=== PATIENT | female | born 1985 | race Caucasian/White ===

== ENCOUNTER 2021-09-07 19:16 | Emergency (ER) | payer MEDICAID, SELFPAY ==
--- NOTE | ~2021-09-07 | XR_ITS ---
EXAMINATION: XR FINGER, RIGHT CLINICAL INFORMATION: Thumb injury. COMPARISON: None TECHNIQUE: Three views of the right thumb. FINDINGS: Small avulsion fragment off the ventral surface of the IP joint of the thumb. No other fractures. Joint alignment is anatomic. Mild swelling around the thumb. No unexpected radiopaque foreign bodies. XR/XR finger RT min 2V IMPRESSION: Age indeterminate small avulsion fracture in the ventral aspect of the IP joint of the first digit. Correlate for tenderness. No other fractures. Joint alignment is anatomic.
[2021-09-07 19:29] VITALS: BP 114/74; PULSE 71; RESP 18; TEMP 35.7; O2SAT 99; BMI 25.4
--- NOTE | 2021-09-07 20:51 | ED.GENADULT ---
HPI - General Adult General Chief complaint: Extremity Problem Stated complaint: dislocated thumb? Time Seen by Provider: 09/07/21 20:05 Source: patient Mode of arrival: ambulatory Limitations: no limitations History of Present Illness HPI narrative: 26-year-old female presents to the ED for right thumb pain. Patient states she was horsing around with friends and she states her right thumb dislocated and she put it back. Patient states pain on range of motion of thumb since self reduction. Patient denies any other injury or trauma. Related Data Previous Rx's Medication Instructions Recorded naproxen 500 mg tablet 500 mg PO BID PRN 10 Days #20 tab 09/07/21 Allergies Allergy/AdvReac Type Severity Reaction Status Date / Time shellfish derived Allergy Unknown LIPS SWELL Verified 09/07/21 19:27 [SHELLFISH DERIVED] marcel nuts Allergy Unknown Unknown Uncoded 09/07/21 19:27 seasonal Allergy Unknown Unknown Uncoded 09/07/21 19:27 shellfish Allergy Unknown Unknown Uncoded 09/07/21 19:27 tuna Allergy Unknown Unknown Uncoded 09/07/21 19:27 Review of Systems Review of Systems: Right thumb pain Yes all other systems are reviewed and are negative [facility] Social History Social History Advance Directives: No Advance Directives Information Provided: Yes Physical Exam ED Vital Signs: Vital Signs - 24 hr 09/07/21 19:29 Temperature 96.3 F L Pulse Rate 71 Respiratory Rate 18 Blood Pressure 114/74 Pulse Oximetry 99 BMI result Body Mass Index 25.4 Const General: cooperative, healthy appearing, comfortable, no acute distress, well developed, alert, awake and Physically active Orientation/consciousness: patient oriented x3 HENMT Head: Yes normal to inspection, Yes No palpable skull fracture present, Yes normocephalic, Yes atraumatic and No abrasion Eyes General: appearance normal, both eyes and all related structures Neck Neck: Yes normal visual inspection, Yes full ROM, Yes no lymphadenopathy, Yes no meningeal signs, Yes trachea midline, Yes supple, No anterior neck swelling and No tender Chest Chest palpation & inspection: normal inspection of the chest and normal palpation of entire chest wall Resp Effort & Inspection: normal respiratory effort and able to speak in complete sentences Auscultation: clear to auscultation bilaterally Cardio Jugular venous distension: no JVD Heart sounds: S1 normal heart sound present and S2 normal heart sound present GI Inspection: Yes normal to inspection and No abdominal wall ecchymosis Palpation (GI): Soft to palpation, not firm, nontender, no guarding and not rigid General: No CVA tenderness and Yes no CVA tenderness Back/Spine/Pelvis Back: no CVA tenderness, No CVA tenderness and No back tenderness Skin General skin exam: no rashes or lesions noted and elasticity normal Neuro General: patient oriented x3, gait normal, no meningeal signs and CN's II-XI intact bilaterally Cranial nerves: Yes CN's II-XII intact bilaterally Extrem General: Yes normal to inspection and Yes full ROM Hand/finger images: 1. positive for tenderness on palpatino. negative for ecchymosis, deformity, redness, or swelling. Capillary refills is intact. Rest of extremity is normal. Motor, neuro, and vascular exam is intact. Psych Appearance: grossly normal, well kempt and not disheveled Course Course Course Narrative: Thumb x-ray Reevaluation(s) Reevaluation #1: X-ray negative for dislocation but shows small inter phalangeal avulsion fracture of unknown age. Patient is placed in velcro thumb spica splint Time: 20:52 Medical Decision Making MDM Narrative Medical decision making narrative: Thumb pain. Inter determinant avulsion fracture of thumb Discharge Plan Discharge Clinical Impression: Closed avulsion fracture of thumb Patient Disposition: Home, Self-Care Instructions: Finger Fracture (ED) Additional Instructions: X-ray shows avulsion fracture of thumb of unknown age. Please follow-up with orthopedic surgeon. Return to ED for worsening thumb pain, swelling, redness, bluish black discoloration, hotness, coolness, numbness/tingling, or any other concerning symptoms. Prescriptions: New naproxen 500 mg tablet 500 mg PO BID PRN (Reason: pain) 10 Days Qty: 20 0RF Referrals: Ajit Villa MD [Physician] - 2 days (Self reduced thumb dislocation. avulsion fracture of interdeterminate age) Stand Alone Forms: Work/School Release Interventions: ED Discharge Assessment Last Done: 09/07/21 21:00 Discharge Date/Time: 09/07/21 21:01 Print Language: Lithuanian
== END 2021-09-07 21:01 | disposition home or self-care (01) ==
PROVIDERS: Emergency Provider Internal Medicine; PCP Internal Medicine
DX: S62.501A Fracture of unspecified phalanx of right thumb, initial encounter for closed fracture (principal); M79.641 Pain in right hand; W01.0XXA Fall on same level from slipping, tripping and stumbling without subsequent striking against object, initial encounter; Y93.9 Activity, unspecified; Y92.9 Unspecified place or not applicable; Y99.9 Unspecified external cause status; Z79.899 Other long term (current) drug therapy
CPT/HCPCS: 29130; 73140; 99282; 99284

== ENCOUNTER → 2021-09-22 13:33 | Outpatient (BNVA) | payer MEDICAID, SELFPAY | PROVIDERS: PCP Internal Medicine; Visit Provider Physician Assistant | DX: M25.641 Stiffness of right hand, not elsewhere classified (principal); S63.104A Unspecified dislocation of right thumb, initial encounter; X58.XXXA Exposure to other specified factors, initial encounter; Y93.B1 Activity, exercise machines primarily for muscle strengthening; Y92.9 Unspecified place or not applicable; Y99.8 Other external cause status; J30.2 Other seasonal allergic rhinitis; Z91.018 Allergy to other foods; Z91.013 Allergy to seafood | CPT/HCPCS: 99202 ==

== ENCOUNTER → 2021-09-29 12:02 | Outpatient (BNVA) | payer MEDICAID, SELFPAY | PROVIDERS: PCP Internal Medicine; Visit Provider Orthopaedic Surgery | DX: S63.641D Sprain of metacarpophalangeal joint of right thumb, subsequent encounter (principal) | CPT/HCPCS: 99212 ==

== ENCOUNTER → 2021-10-27 12:27 | Outpatient (BNVA) | payer MEDICAID, SELFPAY | PROVIDERS: PCP Internal Medicine; Visit Provider Orthopaedic Surgery | DX: S63.641A Sprain of metacarpophalangeal joint of right thumb, initial encounter (principal) | CPT/HCPCS: 29075; 99212 ==

== ENCOUNTER → 2021-11-10 10:21 | Outpatient (BNVA) | payer MEDICAID, SELFPAY | PROVIDERS: PCP Internal Medicine; Visit Provider Orthopaedic Surgery | DX: S63.641D Sprain of metacarpophalangeal joint of right thumb, subsequent encounter (principal); M25.641 Stiffness of right hand, not elsewhere classified | CPT/HCPCS: 99212 ==

== ENCOUNTER 2021-12-07 08:00 | Outpatient (RCR) | payer MEDICAID, SELFPAY | END 2022-02-17 16:38 | disposition home or self-care (01) | LOC: HO.OT 08:00 | PROVIDERS: PCP Internal Medicine; Visit Provider Physician Assistant | DX: S63.641D Sprain of metacarpophalangeal joint of right thumb, subsequent encounter (principal); M25.641 Stiffness of right hand, not elsewhere classified | CPT/HCPCS: 29131; 97035; 97110; 97165; 97530; 97760 ==

== ENCOUNTER → 2021-12-08 09:33 | Outpatient (BNVA) | payer MEDICAID, SELFPAY | PROVIDERS: PCP Internal Medicine; Visit Provider Orthopaedic Surgery | DX: S63.649D Sprain of metacarpophalangeal joint of unspecified thumb, subsequent encounter (principal); M25.649 Stiffness of unspecified hand, not elsewhere classified | CPT/HCPCS: 99212 ==

== ENCOUNTER 2022-02-23 08:22 | Outpatient (REF) | payer MEDICAID, SELFPAY ==
--- NOTE | ~2022-02-23 | XR_ITS ---
EXAMINATION: XR HAND, RIGHT CLINICAL INFORMATION: Pain. COMPARISON: None TECHNIQUE: PA, lateral, and oblique views of the right hand. FINDINGS: The bones and soft tissues are normal. No fracture. Alignment is anatomic. Joint spaces are maintained. No erosions or soft tissue calcifications. XR/XR hand RT min 3V IMPRESSION: Normal right hand.
== END 2022-02-23 08:23 | disposition home or self-care (01) ==
LOC: HO.HOSX 08:22
PROVIDERS: Visit Provider Orthopaedic Surgery
DX: S63.641D Sprain of metacarpophalangeal joint of right thumb, subsequent encounter (principal); M25.641 Stiffness of right hand, not elsewhere classified; R20.0 Anesthesia of skin
CPT/HCPCS: 73130; 99212

== ENCOUNTER 2022-04-23 07:19 | Emergency (ER) | payer MEDICAID, SELFPAY ==
--- NOTE | ~2022-04-23 | XR_ITS ---
EXAMINATION: XR CHEST CLINICAL INFORMATION: Chest pain. COMPARISON: None TECHNIQUE: 2 views of the chest were obtained. FINDINGS: No significant abnormality is noted involving the heart, lungs, mediastinum, bony thorax or soft tissues. XR/XR chest 2V IMPRESSION: No acute cardiopulmonary process.
[2022-04-23 07:39] VITALS: BP 79/46; PULSE 68; RESP 18; TEMP 36.9; O2SAT 98; BMI 24.4
--- NOTE | 2022-04-23 08:05 | ED_ITS ---
HPI - General Adult General Chief complaint: Nausea/Vomiting/Diarrhea Stated complaint: vomiting Time Seen by Provider: 04/23/22 07:53 Source: patient Mode of arrival: ambulatory Limitations: no limitations History of Present Illness HPI narrative: 36-year-old female woke up from sleep choking on gastric acid in her throat, complaining now of constant chest pain/burning sensation. Also feels sore throat. Otherwise no abdominal pain, no nausea, no vomiting, no SOB, no coughing. Related Data Previous Rx's Medication Instructions Recorded naproxen 500 mg tablet 500 mg PO BID PRN pain 10 days #20 09/07/21 tabs omeprazole 40 mg capsule,delayed 40 mg PO DAILY #20 caps 04/23/22 release Allergies Allergy/AdvReac Type Severity Reaction Status Date / Time shellfish derived Allergy Unknown LIPS SWELL Verified 02/23/22 15:17 [SHELLFISH DERIVED] marcel nuts Allergy Unknown Unknown Uncoded 02/23/22 15:17 seasonal Allergy Unknown Unknown Uncoded 02/23/22 15:17 shellfish Allergy Unknown Unknown Uncoded 02/23/22 15:17 tuna Allergy Unknown Unknown Uncoded 02/23/22 15:17 Review of Systems Review of Systems: All other systems are reviewed and are negative Constitutional: Reports as per HPI and Reports no additional constitutional complaints Eyes: Reports as per HPI and Reports no additional eye complaints Reports system reviewed and no additional complaints, except as documented Cardiovascular: Reports as per HPI and Reports no additional cardiovascular complaints Respiratory: Reports as per HPI and Reports no additional respiratory complaints Gastrointestinal: Reports as per HPI and Reports no additional gastrointestinal complaints Genitourinary: Reports no additional female genitourinary complaints Musculoskeletal: Reports no additional musculoskeletal complaints Skin/Breast: Reports system reviewed and no additional complaints, except as docu Psychiatric: Reports no additional psychiatric complaints Endocrine: Reports no additional endocrine complaints Hematologic/Lymphatic: Reports no additional hematologic/lymphatic complaints Allergic/Immunologic: Reports no additional allergic/immunologic complaints Reports system reviewed and no additional complaints, except as documented and Reports Abnormal speech present [facility] Past Medical History Surgical History H/O total vaginal hysterectomy Social History Social History Advance Directives: No Advance Directives Information Provided: No Current occupational status: employed Current occupation: [employer] Physical Exam ED Vital Signs: Vital Signs - 24 hr 04/23/22 07:39 04/23/22 11:05 Temperature 98.4 F Pulse Rate 68 62 Respiratory Rate 18 16 Blood Pressure 79/46 L 111/76 Pulse Oximetry 98 98 Oxygen Delivery Method Room Air Room Air BMI result Body Mass Index 24.4 Vital signs have been reviewed as appeared to be correct. Blood pressure normal. Heart rate normal. Respiration rate normal. Temperature normal. Oxygen saturation normal. Appearance: Alert. Oriented X3. No acute distress. Head: Normal external exam. Normocephalic. Atraumatic. No Tomlinson signs noted. No raccoon eyes noted Eyes: PERRLA. EOMI. Conjunctiva and sclera normal. Eyelids normal. ENT: TM's Normal. Pharynx normal. Uvula midline. Moist mucous membranes. No trismus noted. No drooling noted. No muffled voice noted. Neck: Normal inspection. Neck supple. FROM. No adenopathy. Thyroid Normal. No meningeal signs. No neck mass noted. CVS: Normal heart rate and rhythm. Heart sound normal. No murmurs noted. Pulses normal throughout. Respiratory: No respiratory distress. Painless inspiration. Breath sounds normal. No wheezes/rales/rhonchi noted. Chest nontender. No accessory muscle usage noted or decreased air movement noted. Abdomen: Soft and nontender. Bowel sounds normal in all 4 quadrants. No distention noted. No organomegaly noted. No visible injury noted. Back: No CVA tenderness. Full range of motion noted. Skin: Skin warm and dry. Normal skin color. Normal skin turgor. No rashes/lesions/lacerations noted. Extremities: No lower extremity edema. Extremities exhibit normal range of motion. Extremities nontender. Neuro: Oriented X 3. Cranial nerve exam: II-XII are grossly intact No motor deficit. No sensory deficit. Reflexes normal. Course Course Course Narrative: 36-year-old female came in for evaluation after having acid reflux with possible aspiration while sleeping, patient's symptoms is likely secondary to esophagitis, patient feeling better after IV fluid and Pepcid with Maalox, unremarkable workup in the ED. patient was instructed to not to eat doing going to bed, and raise the head of the bed or using 2 pillows instead. Will start the patient on PPI and follow-up with GI. Patient initially was hypotensive which felt to be a non accurate reading. Blood pressure now is normal. Patient is asymptomatic now able to tolerate p.o. intake in the ED. Medical Decision Making Medical Records Medical records reviewed: Yes I reviewed the patient's medical records. Lab Data Lab results reviewed: Yes I reviewed the patient's lab results. Result diagrams: 04/23/22 08:26 04/23/22 08:26 Labs: Lab Results 04/23/22 04/23/22 04/23/22 Range/Units 08:26 08:26 08:26 WBC 6.3 (4.8-10.8) X10*3/uL RBC 4.87 (4.20-5.50) X10*6/uL Hgb 14.4 (12.0-16.0) g/dl Hct 43.9 (37.0-47.0) % MCV 90.1 (80.0-98.0) fL MCH 29.6 (27.0-33.0) pg MCHC 32.8 (31.0-35.0) g/dl RDW 13.8 (11.0-16.0) % Plt Count 331 (160-400) X10*3/uL MPV 9.8 (9.4-12.3) fL Immature Gran % (Auto) 0.5 H (0.0-0.4) % Neut % (Auto) 60.9 (45-73) % Lymph % (Auto) 25.2 (20-40) % [place] % (Auto) 6.6 (2-11) % Eos % (Auto) 5.7 H (0-4) % Baso % (Auto) 1.1 (0-2) % Lymph # (Auto) 1.6 (1.2-4.9) X10*3/uL [place] # (Auto) 0.4 (0.1-1.2) X10*3/uL Eos # (Auto) 0.4 (0.0-0.4) X10*3/uL Baso # (Auto) 0.1 (0.0-0.2) X10*3/uL Abs Immat Gran (auto) 0.03 (0.00-0.03) X10*3/uL Absolute Neuts (auto) 3.9 (2.0-8.3) x10*3/uL Absolute Nucleated RBC 0.000 (0.0-0.012) X10*3/uL Nucleated RBC % (auto) 0.0 (0.0-0.2) /100WBC Sodium 140 (135-145) mmol/L Potassium 5.3 H (3.3-5.1) mmol/L Chloride 104 (96-108) mmol/L Carbon Dioxide 24 (22-29) mmol/L Anion Gap 17 (12-20) BUN 13 (9-16) mg/dL Creatinine 0.70 (0.5-1.4) mg/dL Estim Creat Clear Calc 87.6 Estimated GFR > 60 Random Glucose 96 (60-115) mg/dL Calcium 9.7 (8.4-10.2) mg/dL Total Bilirubin 0.6 (0.0-1.0) mg/dL Direct Bilirubin 0.2 (0.0-0.5) mg/dL AST 21 (5-31) U/L ALT 20 (0-31) U/L Alkaline Phosphatase 123 H (39-117) U/L Troponin I High Sens (<3.5-17.0) ng/L Total Protein 7.7 (6.5-8.0) g/dL Albumin 4.7 (3.5-5.0) g/dL Lipase 21 (8-78) U/L Urine Color Urine Appearance Urine pH (5.0-9.0) Ur Specific [place] (1.005-1.025) Urine Protein (Neg-Trace) mg/dL Urine Glucose (UA) (Negative) mg/dL Urine Ketones (Negative) mg/dL Urine Blood (Negative) Urine Nitrite (Negative) Ur Leukocyte Esterase (Negative) Urine Test (NEGATIVE) Influenza Type A (PCR) NEGATIVE (Negative) Influenza Type B (PCR) NEGATIVE (Negative) RSV RNA Qual (PCR) NEGATIVE (Negative) SARS-CoV-2 RNA (RT-PCR) NEGATIVE (Negative) 04/23/22 04/23/22 04/23/22 Range/Units 08:26 08:26 08:26 WBC (4.8-10.8) X10*3/uL RBC (4.20-5.50) X10*6/uL Hgb (12.0-16.0) g/dl Hct (37.0-47.0) % MCV (80.0-98.0) fL MCH (27.0-33.0) pg MCHC (31.0-35.0) g/dl RDW (11.0-16.0) % Plt Count (160-400) X10*3/uL MPV (9.4-12.3) fL Immature Gran % (Auto) (0.0-0.4) % Neut % (Auto) (45-73) % Lymph % (Auto) (20-40) % [place] % (Auto) (2-11) % Eos % (Auto) (0-4) % Baso % (Auto) (0-2) % Lymph # (Auto) (1.2-4.9) X10*3/uL [place] # (Auto) (0.1-1.2) X10*3/uL Eos # (Auto) (0.0-0.4) X10*3/uL Baso # (Auto) (0.0-0.2) X10*3/uL Abs Immat Gran (auto) (0.00-0.03) X10*3/uL Absolute Neuts (auto) (2.0-8.3) x10*3/uL Absolute Nucleated RBC (0.0-0.012) X10*3/uL Nucleated RBC % (auto) (0.0-0.2) /100WBC Sodium (135-145) mmol/L Potassium (3.3-5.1) mmol/L Chloride (96-108) mmol/L Carbon Dioxide (22-29) mmol/L Anion Gap (12-20) BUN (9-16) mg/dL Creatinine (0.5-1.4) mg/dL Estim Creat Clear Calc Estimated GFR Random Glucose (60-115) mg/dL Calcium (8.4-10.2) mg/dL Total Bilirubin (0.0-1.0) mg/dL Direct Bilirubin (0.0-0.5) mg/dL AST (5-31) U/L ALT (0-31) U/L Alkaline Phosphatase (39-117) U/L Troponin I High Sens < 3.5 (<3.5-17.0) ng/L Total Protein (6.5-8.0) g/dL Albumin (3.5-5.0) g/dL Lipase (8-78) U/L Urine Color Yellow Urine Appearance Clear Urine pH 6.0 (5.0-9.0) Ur Specific [place] 1.025 (1.005-1.025) Urine Protein Negative (Neg-Trace) mg/dL Urine Glucose (UA) Negative (Negative) mg/dL Urine Ketones Negative (Negative) mg/dL Urine Blood Negative (Negative) Urine Nitrite Negative (Negative) Ur Leukocyte Esterase Negative (Negative) Urine Test NEGATIVE (NEGATIVE) Influenza Type A (PCR) (Negative) Influenza Type B (PCR) (Negative) RSV RNA Qual (PCR) (Negative) SARS-CoV-2 RNA (RT-PCR) (Negative) Imaging Data Chest x-ray: Attestation: I personally reviewed and interpreted this imaging study as follows: Radiologist's impression: No acute cardiopulmonary process Discharge Plan Discharge Clinical Impression: Chest pain due to GERD, Gastritis Patient Disposition: Home, Self-Care Instructions: Esophagitis (ED) Prescriptions: New omeprazole 40 mg capsule,delayed release(DR/EC) 40 mg PO DAILY Qty: 20 0RF No Action naproxen 500 mg tablet 500 mg PO BID PRN (Reason: pain) 10 Days Qty: 20 0RF Referrals: Jossy Michele MD [Primary Care Provider] -
[2022-04-23 08:31] LABS: MANUAL DIFF FLAG NO
[2022-04-23] MEDS: 0.9 % Sodium Chloride 1,000 ML 999 ML IV (08:31)
[2022-04-23 08:33] LABS: Basophils Absolute Auto 0.1 X10*3/uL (0.0-0.2); Basophils Percent Auto 1.1 % (0-2); Eosinophils Absolute Auto 0.4 X10*3/uL (0.0-0.4); Eosinophils Percent Auto 5.7 % (0-4); Hematocrit 43.9 % (37.0-47.0); Hemoglobin 14.4 g/dl (12.0-16.0); Imm Gran Abs Auto 0.03 X10*3/uL (0.00-0.03); Imm Gran Pct Auto 0.5 % (0.0-0.4); Lymphocytes Absolute Auto 1.6 X10*3/uL (1.2-4.9); Lymphocytes Percent Auto 25.2 % (20-40); Mean Corpuscular HGB Conc 32.8 g/dl (31.0-35.0); Mean Corpuscular Hemoglobin 29.6 pg (27.0-33.0); Mean Corpuscular Volume 90.1 fL (80.0-98.0); Mean Platelet Volume 9.8 fL (9.4-12.3); Monocytes Absolute Auto 0.4 X10*3/uL (0.1-1.2); Monocytes Percent Auto 6.6 % (2-11); Neutrophils Absolute Auto 3.9 x10*3/uL (2.0-8.3); Neutrophils Percent Auto 60.9 % (45-73); Platelet Count 331 X10*3/uL (160-400); Red Blood Count 4.87 X10*6/uL (4.20-5.50); Red Cell Distribution Width 13.8 % (11.0-16.0); White Blood Count 6.3 X10*3/uL (4.8-10.8)
[2022-04-23] MEDS: Famotidine/PF 20 MG/2 ML VIAL IVPUSH (08:34)
[2022-04-23] MEDS: Magnesium Hydrox/Alum Hydrox 30 ML ORAL.SUSP PO (08:34)
[2022-04-23 08:38] LABS: Appearance Urine Clear; Color Urine Yellow; Glucose Urine UA Negative (Negative); Leukocyte Esterase Urine Negative (Negative); Nitrite Urine Negative (Negative); Specific Gravity - Urine 1.025 (1.005-1.025); Urine Blood Negative (Negative); Urine Ketones Negative (Negative); Urine Protein Negative (Neg-Trace)
[2022-04-23 08:40] LABS: UPreg QC Valid YES; Urine Pregnancy NEGATIVE (NEGATIVE)
[2022-04-23 08:56] LABS: Troponin-I High Sensitivity < 3.5 ng/L (<3.5-17.0)
[2022-04-23 09:03] LABS: Alanine Aminotransferase 20 U/L (0-31); Albumin Level 4.7 g/dL (3.5-5.0); Alkaline Phosphatase 123 U/L (39-117); Anion Gap 17 (12-20); Aspartate Amino Transferase 21 U/L (5-31); Bilirubin Direct 0.2 mg/dL (0.0-0.5); Bilirubin Total 0.6 mg/dL (0.0-1.0); Blood Urea Nitrogen 13 mg/dL (9-16); Calcium 9.7 mg/dL (8.4-10.2); Carbon Dioxide 24 mmol/L (22-29); Chloride 104 mmol/L (96-108); Creatinine Clr Calc Pharmacy 87.6; Estimated Glomerular Filt Rate > 60; Glucose Random 96 mg/dL (60-115); Lipase 21 U/L (8-78); Potassium 5.3 mmol/L (3.3-5.1); Sodium 140 mmol/L (135-145); Total Protein 7.7 g/dL (6.5-8.0)
[2022-04-23 09:34] LABS: Influenza A PCR NEGATIVE (Negative); Influenza B PCR NEGATIVE (Negative); Resp Syncy Virus RNA Qual PCR NEGATIVE (Negative); SARS COV2 PCR INHOUSE NEGATIVE (Negative)
[2022-04-23] MEDS: Morphine Sulfate 2 MG/ML CARTRIDGE 1 MG IVPUSH (10:28)
[2022-04-23 11:05] VITALS: BP 111/76; PULSE 62; RESP 16; O2SAT 98
== END 2022-04-23 11:54 | disposition home or self-care (01) ==
PROVIDERS: Emergency Provider Emergency Medicine; PCP Internal Medicine
DX: K29.70 Gastritis, unspecified, without bleeding (principal); R07.89 Other chest pain; K21.9 Gastro-esophageal reflux disease without esophagitis; Z20.822 Contact with and (suspected) exposure to COVID-19; J02.9 Acute pharyngitis, unspecified
CPT/HCPCS: 0241U; 36415; 71046; 80048; 80076; 81003; 81025; 83690; 84484; 85025; 96361; 96374; 96375; 99284; J2270

== ENCOUNTER 2022-06-30 12:32 | Outpatient (REF) | payer MEDICAID, SELFPAY | END 2022-06-30 12:33 | disposition home or self-care (01) | LOC: HO.NEURO 12:32 | PROVIDERS: PCP Internal Medicine; Visit Provider Orthopaedic Surgery | DX: Z13.89 Encounter for screening for other disorder (principal) ==

== ENCOUNTER 2022-07-07 08:49 | Outpatient (REF) | payer MEDICAID, SELFPAY ==
[2022-07-07 09:09] LABS: MANUAL DIFF FLAG NO
[2022-07-07 09:17] LABS: Basophils Absolute Auto 0.1 X10*3/uL (0.0-0.2); Basophils Percent Auto 0.9 % (0-2); Eosinophils Absolute Auto 0.2 X10*3/uL (0.0-0.4); Hematocrit 41.1 % (37.0-47.0); Hemoglobin 14.1 g/dl (12.0-16.0); Imm Gran Abs Auto 0.01 X10*3/uL (0.00-0.03); Imm Gran Pct Auto 0.2 % (0.0-0.4); Lymphocytes Absolute Auto 1.4 X10*3/uL (1.2-4.9); Lymphocytes Percent Auto 24.8 % (20-40); Mean Corpuscular HGB Conc 34.3 g/dl (31.0-35.0); Mean Corpuscular Hemoglobin 29.9 pg (27.0-33.0); Mean Corpuscular Volume 87.1 fL (80.0-98.0); Mean Platelet Volume 9.8 fL (9.4-12.3); Monocytes Absolute Auto 0.4 X10*3/uL (0.1-1.2); Monocytes Percent Auto 7.3 % (2-11); Neutrophils Absolute Auto 3.6 x10*3/uL (2.0-8.3); Neutrophils Percent Auto 63.8 % (45-73); Platelet Count 311 X10*3/uL (160-400); Red Blood Count 4.72 X10*6/uL (4.20-5.50); White Blood Count 5.6 X10*3/uL (4.8-10.8)
[2022-07-07 09:52] LABS: Alanine Aminotransferase 14 U/L (0-31); Albumin Level 4.5 g/dL (3.5-5.0); Alkaline Phosphatase 96 U/L (39-117); Anion Gap 11 (12-20); Aspartate Amino Transferase 18 U/L (5-31); Bilirubin Total 0.6 mg/dL (0.0-1.0); Blood Urea Nitrogen 13 mg/dL (9-16); C Reactive Protein < 0.10 mg/dL (< or = 0.50); Calcium 9.8 mg/dL (8.4-10.2); Carbon Dioxide 28 mmol/L (22-29); Chloride 104 mmol/L (96-108); Estimated Glomerular Filt Rate > 60; Glucose Random 91 mg/dL (60-115); Potassium 4.2 mmol/L (3.3-5.1); Rheumatoid Factor < 13.0 IU/mL (<15.0); Sodium 139 mmol/L (135-145); Total Protein 7.1 g/dL (6.5-8.0)
[2022-07-07 09:55] LABS: Erythrocyte Sedimentation Rate 5 MM/HR (0-20)
[2022-07-07 10:12] LABS: HBS Num1 0.67 mIU/mL (0-7.99); HBc Num1 0.07 S/CO (0.00-0.79); HBsAGNum1 0.23 S/CO (0.00-0.99); Hepatitis B Core Antibody Nonreactive (Nonreactive); Hepatitis B Surface Antigen Negative (Negative); ~HepC Num1 0.09 S/CO (0.00-0.79); ~Hepatitis B Surface Antibody NONREACTIVE (Nonreactive); ~Hepatitis C Antibody Nonreactive (Nonreactive)
[2022-07-08 08:57] LABS: Hepatitis A Antibody IgM 0.11 Index (0-0.79); ~Hepatitis A Antibody IgM Nonreactive (Nonreactive)
[2022-07-08 14:58] LABS: Complement C3 109 mg/dL (83-193)
[2022-07-10 12:33] LABS: Cyclic Citrullinated Peptide <16 UNITS
[2022-07-10 15:13] LABS: Anti Nuclear Antibody Screen NEGATIVE (NEGATIVE)
[2022-07-10 23:18] LABS: TS Negative Control Passed; TS Panel A 0; TS Panel B 1; TS Positive Control Passed; TSpotTB Negative (Negative)
[2022-07-11 13:47] LABS: Cardiolipin IgG Ab <2.0 GPL-U/mL; Cardiolipin IgM Ab 2.2 MPL-U/mL
[2022-07-12 07:18] LABS: Anti DNA DS Antibody <1 IU/mL; Antibody to SS-A Antigen <1.0 NEG AI (<1.0 NEG); Antibody to SS-B Antigen <1.0 NEG AI (<1.0 NEG); SM/Ribonucleoprotein Ab <1.0 NEG AI (<1.0 NEG); Smith Protein <1.0 NEG AI (<1.0 NEG)
[2022-07-13 22:54] LABS: PTT (LAC) Screen 34 sec (<=40)
[2022-07-14 15:08] LABS: Beta-2 Glycoprotein IgA <2.0 U/mL (<20.0); Beta-2 Glycoprotein IgG <2.0 U/mL (<20.0); Beta-2 Glycoprotein IgM 2.6 U/mL (<20.0)
[2022-07-15 14:54] LABS: DNAds, Crithidia Antibody Negative (Negative)
== END 2022-07-07 08:50 | disposition home or self-care (01) ==
LOC: HO.10HDL 08:49
PROVIDERS: Visit Provider Student in an Organized Health Care Education/Training Program
DX: Z11.59 Encounter for screening for other viral diseases (principal); Z11.7 Encounter for testing for latent tuberculosis infection; R76.8 Other specified abnormal immunological findings in serum; M25.649 Stiffness of unspecified hand, not elsewhere classified
CPT/HCPCS: 36415; 80053; 82550; 85025; 85597; 85613; 85652; 85730; 86038; 86039; 86140; 86146; 86147; 86160; 86200; 86225; 86235; 86255; 86431; 86481; 86704; 86706; 86709; 86803; 87340; 99202

== ENCOUNTER 2022-08-04 07:48 | Outpatient (REF) | payer MEDICAID, SELFPAY ==
--- NOTE | ~2022-08-04 | XR_ITS ---
EXAMINATION: XR BILATERAL HIPS WITH AP PELVIS CLINICAL INFORMATION: Pain in right hip COMPARISON: None TECHNIQUE: AP view of the pelvis and single views of each hip were obtained. FINDINGS: The bones and soft tissues are normal. No fracture. Sacroiliac and hip joints are normal. Pubic symphysis is normal. No abnormal soft tissue calcifications. XR/XR hips ANDRE min 3V IMPRESSION: Normal pelvis and hips.
== END 2022-08-04 07:49 | disposition home or self-care (01) ==
LOC: HO.XRAY 07:48
PROVIDERS: PCP Internal Medicine; Visit Provider Student in an Organized Health Care Education/Training Program
DX: M25.551 Pain in right hip (principal); M25.552 Pain in left hip; R76.8 Other specified abnormal immunological findings in serum
CPT/HCPCS: 73522; 99212

== ENCOUNTER 2023-01-26 15:53 | Outpatient (REF) | payer MEDICAID, SELFPAY | END 2023-01-26 15:54 | disposition home or self-care (01) | LOC: HO.LAB 15:53 | PROVIDERS: PCP Internal Medicine; Visit Provider Emergency Medicine | DX: N89.8 Other specified noninflammatory disorders of vagina (principal) | CPT/HCPCS: 36415; 86706; 86780; 86803; 87340; 87389 ==

== ENCOUNTER 2023-06-05 15:34 | Outpatient (REF) | payer MEDICAID, SELFPAY ==
[2023-06-05 17:29] LABS: MANUAL DIFF FLAG NO
[2023-06-05 17:41] LABS: Basophils Absolute Auto 0.1 X10*3/uL (0.0-0.2); Basophils Percent Auto 0.9 % (0-2); Eosinophils Absolute Auto 0.6 X10*3/uL (0.0-0.4); Eosinophils Percent Auto 7.4 % (0-4); Hematocrit 43.9 % (37.0-47.0); Hemoglobin 14.3 g/dl (12.0-16.0); Imm Gran Abs Auto 0.04 X10*3/uL (0.00-0.03); Imm Gran Pct Auto 0.5 % (0.0-0.4); Lymphocytes Absolute Auto 2.4 X10*3/uL (1.2-4.9); Mean Corpuscular HGB Conc 32.6 g/dl (31.0-35.0); Monocytes Absolute Auto 0.6 X10*3/uL (0.1-1.2); Monocytes Percent Auto 7.1 % (2-11); Neutrophils Absolute Auto 4.8 x10*3/uL (2.0-8.3); Neutrophils Percent Auto 56.1 % (45-73); Platelet Count 342 X10*3/uL (160-400); Red Blood Count 4.77 X10*6/uL (4.20-5.50); Red Cell Distribution Width 13.7 % (11.0-16.0); White Blood Count 8.5 X10*3/uL (4.8-10.8)
[2023-06-05 17:43] LABS: Estimated Average Glucose 100 mg/dL; Hemoglobin A1c % 5.1 % (<6.0)
[2023-06-05 17:48] LABS: Alanine Aminotransferase 15 U/L (0-31); Albumin Level 4.6 g/dL (3.5-5.0); Alkaline Phosphatase 98 U/L (39-117); Anion Gap 12 (12-20); Aspartate Amino Transferase 20 U/L (5-31); Bilirubin Direct < 0.2 mg/dL (0.0-0.5); Bilirubin Total 0.2 mg/dL (0.0-1.0); Blood Urea Nitrogen 12 mg/dL (9-16); Calcium 9.8 mg/dL (8.4-10.2); Carbon Dioxide 29 mmol/L (22-29); Chloride 102 mmol/L (96-108); Cholesterol 180 mg/dL (<200); Estimated Glomerular Filt Rate > 60; Glucose Random 89 mg/dL (60-115); HDL Cholesterol 55 mg/dL (>40); LDL Cholesterol Calculated 93 mg/dL (<100); Potassium 4.1 mmol/L (3.3-5.1); Sodium 139 mmol/L (135-145); Total Protein 7.7 g/dL (6.5-8.0); Triglycerides 161 mg/dL (<150)
[2023-06-06 07:09] LABS: HIV AB/AG Nonreactive (Nonreactive); HIV Num 1 0.06 S/CO (0.00-0.99)
[2023-06-06 07:13] LABS: ~HepC Num1 0.05 S/CO (0.00-0.79); ~Hepatitis C Antibody Nonreactive (Nonreactive)
== END 2023-06-05 15:35 | disposition home or self-care (01) ==
LOC: HO.HHCL 15:34
PROVIDERS: Visit Provider Internal Medicine
DX: Z00.00 Encounter for general adult medical examination without abnormal findings (principal)
CPT/HCPCS: 36415; 80048; 80061; 80076; 83036; 85025; 86803; 87389

== ENCOUNTER 2023-11-22 14:25 | Outpatient (REF) | payer MEDICAID, SELFPAY ==
[2023-11-22 17:00] LABS: Alanine Aminotransferase 21 U/L (0-31); Albumin Level 4.4 g/dL (3.5-5.0); Alkaline Phosphatase 128 U/L (39-117); Anion Gap 13 (12-20); Aspartate Amino Transferase 18 U/L (5-31); Bilirubin Total 0.1 mg/dL (0.0-1.0); Blood Urea Nitrogen 17 mg/dL (9-16); Calcium 9.6 mg/dL (8.4-10.2); Carbon Dioxide 28 mmol/L (22-29); Chloride 101 mmol/L (96-108); Estimated Glomerular Filt Rate > 60; Glucose Random 81 mg/dL (60-115); Potassium 4.4 mmol/L (3.3-5.1); Sodium 138 mmol/L (135-145); Total Protein 7.6 g/dL (6.5-8.0)
[2023-11-22 17:16] LABS: TSH reflex Free T4 1.59 uIU/mL (0.32-4.0)
== END 2023-11-22 14:26 | disposition home or self-care (01) ==
LOC: HO.HHCL 14:25
PROVIDERS: Visit Provider Student in an Organized Health Care Education/Training Program
DX: H57.89 Other specified disorders of eye and adnexa (principal)
CPT/HCPCS: 36415; 80053; 84443

== ENCOUNTER 2023-12-04 16:07 | Outpatient (REF) | payer MEDICAID, SELFPAY ==
[2023-12-04 17:46] LABS: Estimated Average Glucose 103 mg/dL; Hemoglobin A1c % 5.2 % (<6.0)
[2023-12-04 18:49] LABS: Folate 13.9 ng/mL (> or = 4.0); Vitamin B12 812 pg/mL (200-900)
[2023-12-06 16:28] LABS: RPR Rapid Plasma Reagin NON-REACTIVE (NON-REACTIVE)
== END 2023-12-04 16:08 | disposition home or self-care (01) ==
LOC: HO.HHCL 16:07
PROVIDERS: Visit Provider Internal Medicine
DX: R20.0 Anesthesia of skin (principal); R20.2 Paresthesia of skin
CPT/HCPCS: 36415; 82607; 82746; 83036; 86592

== ENCOUNTER 2024-08-06 15:32 | Outpatient (REF) | payer MEDICAID, SELFPAY ==
--- NOTE | ~2024-08-06 | XR_ITS ---
EXAMINATION: XR HIP, RIGHT CLINICAL INFORMATION: chronic pain COMPARISON: 08/04/2022. TECHNIQUE: Two views of the right hip. FINDINGS: No fracture. Alignment is anatomic. Hip joint space is maintained. There are no degenerative changes. Soft tissues are unremarkable. XR/XR hip RT min 2V IMPRESSION: Normal right hip. Electronically signed by: Clif Ramey MD 08/06/2024 03:51 PM EST
== END 2024-08-06 15:33 | disposition home or self-care (01) ==
LOC: HO.HHCX 15:32
PROVIDERS: Visit Provider Internal Medicine
DX: M25.551 Pain in right hip (principal); G89.29 Other chronic pain
CPT/HCPCS: 73502

== ENCOUNTER → 2024-08-06 15:33 | Outpatient (BNV) | payer MEDICAID, SELFPAY | PROVIDERS: Visit Provider Radiology Diagnostic Radiology | DX: M25.551 Pain in right hip (principal) | CPT/HCPCS: 73502 ==

== ENCOUNTER 2024-09-06 08:35 | Outpatient (AMB) | payer MEDICAID, SELFPAY ==
--- NOTE | 2024-09-06 08:37 | MHC.OFFVIS ---
Vital Signs 09/06/24 08:38 Height 5 ft 1 in Weight 145 lb BMI 27.4 Intake Visit Reasons: New problem chronic right hip pain Intake Note: Caroline is a 39 year old female who presents today for a new problem visit with complaints of right hip pain. Patient reports right hip pain ongoing for a few months now. Her pain if felt in the lateral aspect of the hip and is felt all the time. She was taking Tylenol for her pain which was not helpful. She has had no previous treatments. Allergies shellfish derived [SHELLFISH DERIVED] Allergy (Unknown, Verified 08/04/22 07:57) LIPS SWELL sunscreen Allergy (Intermediate, Uncoded 08/04/22 07:57) Redness of Skin marcel nuts Allergy (Unknown, Uncoded 08/04/22 07:57) Unknown seasonal Allergy (Unknown, Uncoded 08/04/22 07:57) Unknown shellfish Allergy (Unknown, Uncoded 08/04/22 07:57) Unknown tuna Allergy (Unknown, Uncoded 08/04/22 07:57) Unknown HPI HPI New problem chronic right hip pain: Details: 39-year-old female presents to the office today for right hip pain. She states the pain has been present for over 3 months. She denies injury. She denies groin pain. She states the pain is along the lateral aspect of the hip which radiates down the leg. She has mild discomfort with sleeping. She has had no treatment to date. [facility] Medical History (Updated 09/06/24 @ 08:52 by Jadiel Hidalgo PA-C) Polyarthralgia Pain of right thumb Psoriasis Mood disorder Asthma Surgical History (Updated 09/06/24 @ 08:41 by Magi Florence CMA) S/P reconstruction of ACL of right knee using bone-patellar tendon-bone autograft Hx of tubal ligation H/O total vaginal hysterectomy Family History Mother Osteoarthritis Social History Household Members: Spouse and Family Housing: House Alcohol intake: never Patient Tobacco Use Status: Former Tobacco user Years Smoked: quit 4 years ago e-Cigarette/Vaping Use: Never Used service: No Current occupational status: employed 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 No pain with ROM of the hip. Pain along the greater trochanter. No pain with hip flexion or abduction.There is no tenderness along the si joint, Negative SLR. NVI. Results Reviewed Results Reviewed: XR hip RT min 2V IMPRESSION: Normal right hip. Assessment & Plan Assessment & Plan (1) Trochanteric bursitis, right hip: Code(s): M70.61 - Trochanteric bursitis, right hip Category: Medical Plan: We discussed options today which included physical therapy which was ordered today. She can increase activities as tolerated. I did recommend anti-inflammatory use such as Motrin 800 mg 3 times a day for 2 weeks for acute flare-ups. If symptoms persist or worsen over the next 6-8 weeks she can contact our office for a steroid injection otherwise follow up as needed. Orders: Orders PT Evaluation and Treatment Today M70.61 - Trochanteric bursitis, right hip Coding Level of Care Code New Pt Level 3 (93348) Complex EM visit Add On G2211 Diagnoses Trochanteric bursitis, right hip M70.61
[2024-09-06 08:38] VITALS: BMI 27.4
--- OUTSIDE RECORDS SUMMARY | 2024-09-06 08:54 | XMS_ITS | Encounter Summary ---
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 Name Role Phone Jossy Michele MD Primary Care Provide r Reason for Visit * Reason Comments Med Refill Encounter Details Date Type Department Care Team ([facility] Contact Info) Description 04/05/2024 Refill [facility] [address], [place] [phone] Timbo Gill MD [address], [place] [phone] Psoriasis Social History Tobacco Use Types Packs/Day Years Used Date Smoking Tobacco: Never Passive Smoke Exposure: Never Smokeless Tobacco: Never Alcohol Use Standard Drinks/Week Comments Yes 0 (1 standard drink = 0.6 oz pur e alcohol) occassional Depression Answer Date Recorded Patient Health Questionnaire-9 Score 0 07/20/2023 Patient Health Questionnaire-9 Score 0 07/20/2023 Last PHQ-9: Questionnaire Data Not on file 1 09/20/2022 Housing Stability Answer Date Recorded What is your housing situation today? I have pepe laird 06/05/[address] you li ve. Do you have problems with any of the following? None of the above 06/05/2023 Food Insecurity Answer Date Recorded Within the past 12 months, y ou worried that your food would run out before you got money to buy more: Never True 06/05/2023 Within the past 12 months,th e food you bought just didn't last and you didn't have enough money to get more: Never True Transportation Answer Date Recorded In the past 12 months, has l ack of transportation kept you from medical appts, meetings, work or from getting things needed for daily living? No 06/05/2023 Utilities Answer Date Recorded In the past 12 months, has t he electric, gas, oil or water company threatened to shut off services in your home? No 06/05/2023 Depression Answer Date Recorded Patient Health Questionnaire-2 Score 0 07/20/2023 Comments Unknown Sex and Gender Information Value Date Recorded Sex Assigned at Female 05/23/2022 10:14 AM EDT Legal Sex Female 10:14 AM EDT Gender Identity Female 05/23/2022 10:14 AM EDT Sexual Orientation Straight 05/23/2022 10 :14 AM EDT documented as of this encounter Plan of Treatment Not on file documented as of this encounter Visit Diagnoses Diagnosis Psoriasis Other psoriasis documented in this encounter Additional Health Concerns Assessment Noted Time PHQ-9 Depression Total Score: 0 07/20/20 23 2:58 PM EST documented as of this encounter Care Teams [employer] Supervisor Relationship Specialty Start Date End Date Jossy Michele MD [address] [place] [id number] PCP - General Family Medicine 04/04/18 documented as of this encounter
--- OUTSIDE RECORDS SUMMARY | 2024-09-06 08:54 | XMS_ITS | Encounter Summary ---
Author Organization [employer] Address [address] [facility] 7t [place] [address] Care Team Providers Care Fur Repairer Name Role Phone Jossy Michele MD Primary Care Provide r Reason for Referral * Consultation (Routine) - Authorized Specialty Diagnoses / Procedures Referred By Gato junior Referred To Contact Midwifery Diagnoses Vaginal dryness Jossy Michele MD [address] [place] [phone] Phone: tel: fax: Christy Martínez CNM [address] [place] [address] Phone: tel: fax: Referral ID Status Reason Start Date Expiration Date Visits Requested Visits Authorized [id number] Authorized Consult and Treat 09/05/2024 09/05/2025 1 1 * Consultation (Routine) - Authorized Specialty Diagnoses / Procedures Referred By Gato junior Referred To Contact Family Medicine Diagnoses Alopecia Jossy Michele MD [address] [place] [phone] Phone: tel: fax: Referral ID Status Reason Start Date Expiration Date Visits Requested Visits Authorized [id number] Authorized Specialty Services Required 09/05/2024 09/05/2025 1 1 Encounter Details Date Type Department Care Team ([facility] st Contact Info) Description 09/05/2024 Orders Only [facility] MEDICINE [address] [place] [phone] Jossy Michele MD [address] [place] [address] Vaginal dryness (Primary Dx); Alopecia Social History Tobacco Use Types Packs/Day Years Used Date Smoking Tobacco: Never Passive Smoke Exposure: Never Smokeless Tobacco: Never Alcohol Use Standard Drinks/Week Comments Yes 0 (1 standard drink = 0.6 oz pur e alcohol) occassional Depression Answer Date Recorded Patient Health Questionnaire-9 Score 0 08/06/2024 Patient Health Questionnaire-9 Score 0 08/06/2024 Last PHQ-9: Questionnaire Data Not on file 0 08/06/2024 Housing Stability Answer Date Recorded What is [...] Date Recorded Patient Health Questionnaire-2 Score 0 08/06/2024 Internet Access Answer Date Recorded Internet Access Q1 No 08/06/2024 Internet Access Q2 I do not want or need it 07/24 Comments Unknown Sex and Gender Information Value Date Recorded Sex Assigned at Female 05/23/2022 10:14 AM EDT Legal Sex Female 10:14 AM EDT Gender Identity Female 05/23/2022 10:14 AM EDT Sexual Orientation Straight 05/23/2022 10 :14 AM EDT documented as of this encounter Plan of Treatment Scheduled Referrals Name Type Priority Associated Diagnoses Order Schedule Referral to [facility] Derm Skin Adult Outpatient Referral Routine Alopecia Expected: 09/05/2024 (Approximate), Expires: 09/05/2025 Referral to Gynecology (Christy) Outpatient Referral Routine Vaginal dryness Expected: 09/05/2024 (Approximate), Expires: 09/05/2025 documented as of this encounter Visit Diagnoses Diagnosis Vaginal dryness- Primary Postmenopausal atrophic vaginitis Alopecia documented in this encounter Additional Health Concerns Assessment Noted Time PHQ-9 Depression Total Score: 0 08/06/19 25 1:53 PM EST documented as of this encounter Care Teams Fur Repairer Relationship Specialty Start Date End Date Jossy Michele MD [address] [place] [phone] PCP - General Family Medicine 04/04/18 documented as of this encounter
--- OUTSIDE RECORDS SUMMARY | 2024-09-06 08:54 | XMS_ITS | Encounter Summary ---
Author Organization [employer] Address [address] [facility] 7t [place] [address] Care Team Providers Care Water Quality Tester Name Role Phone Jossy Michele MD Primary Care Provide r Reason for Visit * Reason Comments Med Change Request Encounter Details Date Type Department Care Team ([facility] Contact Info) Description 01/01/2023 Refill [facility] [address] [place], [place] [phone] Gab Godoy FNP Vitamin D deficiency Social History Tobacco Use Types Packs/Day Years Used Date Smoking Tobacco: Never Assessed Depression Answer Date Recorded Patient Health Questionnaire-9 Score 13 12/27/2022 Depression Answer Date Recorded Patient Health Questionnaire-2 Score 2 12/27/2022 Comments Unknown Sex and Gender Information Value Date Recorded Sex Assigned at Female 05/23/2022 10:14 AM EDT Legal Sex Female 10:14 AM EDT Gender Identity Female 05/23/2022 10:14 AM EDT Sexual Orientation Straight 05/23/2022 10 :14 AM EDT COVID-19 Exposure Response Date Recorded In the last 10 days, have yo u been in contact with someone who was confirmed or suspected to have Coronavirus/COVID-19? No / Unsure 12/27/2022 5:48 PM EDT documented as of this encounter Plan of Treatment Not on file documented as of this encounter Visit Diagnoses Diagnosis Vitamin D deficiency documented in this encounter Additional Health Concerns Assessment Noted Time PHQ-9 Depression Total Score: 13 023 7:06 PM EDT documented as of this encounter Care Teams Water Quality Tester Relationship Specialty Start Date End Date Jossy Michele MD [address] [place], [place] [phone] PCP - General Family Medicine 04/04/18 documented as of this encounter
--- OUTSIDE RECORDS SUMMARY | 2024-09-06 08:55 | XMS_ITS | Encounter Summary ---
Author Organization [employer] Address [address] [facility] 7t [place] [address] Care Team Providers Care Cyber Security Administrator Name Role Phone Jossy Michele MD Primary Care Provide r Reason for Visit * Reason Onset Date Comments X-RAY RESULTS 08/09/2024 Encounter Details Date Type Department Care Team ([facility] Contact Info) Description 08/09/2024 Telephone [facility] MEDICINE [address] [place], [place] [phone] Fito Urbano [place] X-RAY RESULTS Social History Tobacco Use Types Packs/Day Years [...] AM EDT documented as of this encounter Miscellaneous Notes * Telephone Encounter - Fito Urbano [place] - 08/09/2024 1:34 PM EST TC- Patient in regards of message below .Unable to reach LVM to call .When patient calls back please let patient know results . Please let patient know her hip xray is normal thank you documented in this encounter Plan of Treatment Not on file documented as of this encounter Visit Diagnoses Not on filedocumented in this encounter Additional Health Concerns Assessment Noted Time PHQ-9 Depression Total Score: 0 08/06/19 25 1:53 PM EST documented as of this encounter Care Teams Cyber Security Administrator Relationship Specialty Start Date End Date Jossy Michele MD [address] [place] [phone] PCP - General Family Medicine 04/04/18 documented as of this encounter
--- OUTSIDE RECORDS SUMMARY | 2024-09-06 08:55 | XMS_ITS | Encounter Summary ---
Author Organization [employer] Address [address] [facility] 7t [place] [address] Care Team Providers Care Parking Lot Spotter Name Role Phone Jossy Michele MD Primary Care Provide r Reason for Referral * Consultation (Routine) - Authorized Specialty Diagnoses / Procedures Referred By Gato junior Referred To Contact Orthopaedic Surgery Diagnoses Chronic right hip pain Jossy Michele MD [address] [place] [phone] Phone: tel: fax: [facility] [address] [place] [address] Drive [address] [place], [place] Phone: tel: fax: Referral ID Status Reason Start Date Expiration Date Visits Requested Visits Authorized [id number] Authorized Specialty Services Required 08/07/2024 08/07/2025 6 6 Encounter Details Date Type Department Care Team (Late st Contact Info) Description 08/06/2024 2:00 PM EST Office Visit [facility] MEDICINE [address] [place] [phone] Jossy Michele MD [address] [place] [phone] Chronic right hip pain (Primary Dx); Encounter for preventive care; Psoriasis; Encounter for immunization Social History Tobacco Use Types Packs/Day Years [...] AM EDT documented as of this encounter Last Filed Vital Signs Vital Sign Reading Time Taken Comments Blood Pressure 114/64 08/06/2024 1:53 PM EST Pulse 65 08/06/2024 1:53 PM EST Temperature 35.6 ??C (96.1 ??F) 08/06/2024 1:53 PM ES T Respiratory Rate 18 08/06/2024 1:53 PM EST Oxygen Saturation - - Inhaled Oxygen Concentration - - Weight 71.4 kg (157 lb 6.4 oz) 08/06/2024 1:53 P M EST Height 154.9 cm (5' 1 ) 08/06/2024 1:53 PM EST Body Mass Index 29.74 08/06/2024 1:53 PM EST documented in this encounter Progress Notes * Jossy Lares MD - 08/06/2024 2:00 PM EST SUBJECTIVE: Caroline Del Angel is a 39 y.o. year old female who presents for Physical . Concerns for today's visit: Occupation:works at [employer] Lives with:2 kids Social Hx: occasionally drinking EtOH on holidays, denies smoking cigarettes and recreational drug use: marijuana eatables occasionally Diet:regular Exercise: 3 times weights at home LMP:s/p hysterectomy 7 years ago Pap Smear:N/A Hospitalizations/Surgeries: right knee ACL surgery, hysterectomy Eye Care:up to date Dental Care:up to date PMHx:see below FMHx:none Immunizations: Reviewed with patient she will have her Tdap today Acute Concerns: Patient does not like otezla, it makes her have too much nausea Chronic right hip pain Social History Social History Narrative Not on file Patient Active Problem List Diagnosis Vitamin D deficiency Anxiety with depression Encounter for preventive care Alopecia Closed nondisplaced fracture of proximal phalanx of right thumb Gastroesophageal reflux disease Generalized pruritus History of hysterectomy for benign disease Mood disorder (CMS/HCC) Onychomycosis Psoriasis Seborrheic dermatitis Thumb pain, right Hypertriglyceridemia Complete tear of right ACL Headache Numbness and tingling Discomfort of left eye Chronic right hip pain No family history on file. Review of Systems Constitutional: Negative. HENT: Negative. Respiratory: Negative. Cardiovascular: Negative. Gastrointestinal: Positive for nausea. Musculoskeletal: Positive for arthralgias. OBJECTIVE: Vitals: 08/06/24 1353 BP: 114/64 BP Location: Left arm Patient Position: Sitting BP Cuff Size: Adult Pulse: 65 Resp: 18 Temp: 96.1 ??F (35.6 ??C) TempSrc: Oral Weight: 157 lb 6.4 oz (71.4 kg) Height: 5' 1 (1.549 m) Physical Exam Constitutional: Appearance: Normal appearance. Cardiovascular: Rate and Rhythm: Normal rate and regular rhythm. Pulmonary: Effort: Pulmonary effort is normal. Breath sounds: Normal breath sounds. Abdominal: General: Abdomen is flat. Palpations: Abdomen is soft. Musculoskeletal: Right lower leg: No edema. Left lower leg: No edema. Neurological: Mental Status: She is alert. Follow Up: No follow-ups on file. Current Outpatient Medications on File Prior to Visit Medication Sig Dispense Refill apremilast (Otezla) 30 MG tablet Take 1 tablet (30 mg) by mouth 2 times daily. Do not crush, chew, or split tablets. 60 tablet 11 cetirizine (ZyrTEC) 10 MG tablet TAKE 1 TABLET BY MOUTH EVERY DAY 90 tablet 0 Cholecalciferol 50 MCG (2000 UT) tablet dispersible Take 50 mcg by mouth Once per day. 30 tablet 11 Clobetasol Propionate 0.05 % shampoo Use to wash hair daily 118 mL 0 Fluocinolone Acetonide Scalp ([place]-Smoothe/FS Scalp) 0.01 % oil Apply on scalp twice weekly at night and cover with scarf. 118.28 mL 3 fluticasone (Flonase) 50 MCG/ACT nasal spray SPRAY 2 SPRAYS INTO EACH NOSTRIL EVERY DAY 48 mL 0 fluticasone furoate (Arnuity Ellipta) 200 MCG/ACT inhaler Inhale 1 puff Once per day. Rinse mouth with water after use to reduce aftertaste and incidence of candidiasis. Do not swallow. 1 each 11 hydrOXYzine pamoate (Vistaril) 25 MG capsule Take 1 capsule (25 mg) by mouth every 8 (eight) hours if needed for itching. 30 capsule 2 magnesium oxide (Mag-Ox) 400 (240 Mg) MG tablet TAKE 1 TABLET BY MOUTH EVERY DAY 90 tablet 0 No current facility-administered medications on file prior to visit. Problem List Items Addressed This Visit Chronic right hip pain - Primary Relevant Medications acetaminophen (Tylenol Extra Strength) 500 MG tablet Other Relevant Orders Referral to Orthopaedic Surgery XR Hip 2 or 3 Views Right (Completed) Encounter for preventive care See HPI Psoriasis Patient will be f/u dermatology clinic documented in this encounter Miscellaneous Notes * Assessment & Plan Note - Jossy Lares MD - 08/06/2024 4:33 PM EST Associated Problem(s): Psoriasis Patient will be f/u dermatology clinic * Assessment & Plan Note - Jossy Lares MD - 08/06/2024 4:33 PM EST Associated Problem(s): Encounter for preventive care See HPI * Addendum Note - Nicolle Urbano MA - 08/06/2024 2:00 PM ESTAddended by: NICOLLE URBANO on: 08/07/2024 11:24 AM Modules accepted: Orders documented in this encounter Plan of Treatment Scheduled Referrals Name Type Priority Associated Diagnoses Order Schedule Referral to Orthopaedic Surgery Outpatient Referral Routine Chronic right hip pain Expected: 08/06/2024 (Approximate), Expires: 08/06/2025 documented as of this encounter Procedures Procedure Name Priority Date/Time Associated Diagnosis Comments XR HIP 2 OR 3 VIEWS RIGHT Routine 08/06/2024 3:33 PM EST Chronic right hip pain documented in this encounter Results * XR Hip 2 or 3 Views Right (08/06/2024 3:33 PM EST) Anatomical Region Laterality Modality Lower Extremities, Hip Right Radiograp hic Imaging 08/06/2024 3:33 PM EST Narrative 08/06/2024 3:54 PM EST ?[facility] ?[address] ?[place] [address] ?XRay Report ? Signed ? Patient: Hodder,Caroline ?MR#: [id number] ?? 51 ? : 1985 ?Acct:[id number] ? Age/Sex: 39 / F ?ADM Date: 01/14/25 ? Loc: HO.HHCX ? Attending Dr: Jossy Lares MD ? Ordering Physician: Jossy Michele MD ?? Date of Service: 08/06/24 ?? Procedure(s): XR hip RT min 2V ?? Accession Number(s): [id number] ? cc: Jossy Michele MD ? EXAMINATION: ?? XR HIP, RIGHT ? CLINICAL INFORMATION: ?? chronic pain ? COMPARISON: ?? 08/04/2022. ? TECHNIQUE: ?? Two views of the right hip. ? FINDINGS: ?? No fracture. Alignment is anatomic. Hip joint space is maintained. ?? There are no degenerative changes. Soft tissues are unremarkable. ? XR/XR hip RT min 2V ?? IMPRESSION: ?? Normal right hip. ? Electronically signed by: ??Clif Ramey MD ??08/06/2024 03:51 PM EST RP ? Dictated By: ?Clif Ramey MD ? Signed By: ?<Electronically signed by Clif Ramey MD in OV> ?08/06/24 1551 ? DD/ 1533 ? TD/TT: 08/06/24 1542 ? Sanitary Landfill Operator: ? Procedure Note Donginoter, Image - 08/06/[address] [address] XRay Report Signed Patient: Caroline Del AngelMR#: [id number] 51 : 1985Acct:[id number] Age/Sex: 39 / FADM Date: 08/06/24 Loc: HO.HHCX Attending Dr: Jossy Lares MD Ordering Physician: Jossy Michele MD Date of Service: 08/06/24 Procedure(s): XR hip RT min 2V Accession Number(s): [id number] cc: Jossy Michele MD EXAMINATION: XR HIP, RIGHT CLINICAL INFORMATION: chronic pain COMPARISON: 08/04/2022. TECHNIQUE: Two views of the right hip. FINDINGS: No fracture. Alignment is anatomic. Hip joint space is maintained. There are no degenerative changes. Soft tissues are unremarkable. XR/XR hip RT min 2V IMPRESSION: Normal right hip. Electronically signed by: Clif Ramey MD 08/06/2024 03:51 PM EST Dictated By: Clif Ramey MD Signed By: <Electronically signed by Clif Ramey MD in OV> 08/06/24 1551 DD/ 1533 TD/TT: 08/06/24 1542 Sanitary Landfill Operator: Jossy Lares MD IMG XR PROCEDURES Fin al Result documented in this encounter Visit Diagnoses Diagnosis Chronic right hip pain- Primary Encounter for preventive care Psoriasis Other psoriasis Encounter for immunization documented in this encounter Additional Health Concerns Assessment Noted Time PHQ-9 Depression Total Score: 0 08/06/19 1:53 PM EST documented as of this encounter Care Teams Parking Lot Spotter Relationship Specialty Start Date End Date Jossy Michele MD [address] [place] [address] PCP - General Family Medicine 04/04/18 documented as of this encounter
--- OUTSIDE RECORDS SUMMARY | 2024-09-06 08:55 | XMS_ITS | Clinical Summary ---
Author Organization [employer] Address [address] [facility] 7t [place] [address] Care Team Providers Care Asbestos Hazard Abatement Worker Name Role Phone Jossy Michele MD Primary Care Provide r Allergies Active Allergy Reactions Criticality Noted Date Comments Flavoring Agent (Non-Screening) 06/05/2023 Corylus 01/15/2018 Pollen Extract 04/18/2023 Other reaction(s): seasonal Shellfish-Derived Products Swelling 2 Medications * This document contains information received from the source organization and may not represent a complete record from that organization. fluticasone furoate (Arnuity Ellipta) 200 MCG/ACT inhalerIndicati ons:Sore throat,Subacute cough,Congestio n of nasal sinus,Seasonal allergies Inhale 1 puff Once per day. Rinse mouth with water after use to reduce aftertaste and incidence of candidiasis. Do not swallow. 1 each 11 11/14/19 24 025 Active Cholecalciferol 50 MCG (2000 UT) tablet dispersible Take 50 mcg by mouth Once per day. 30 tablet 11/15/19 24 025 Active hydrOXYzine pamoate (Vistaril) 25 MG capsuleIndicati ons:Anxiety with depression Take 1 capsule (25 mg) by mouth every 8 (eight) hours if needed for itching. 30 capsule 2 01/02/20 24 Active fluticasone (Flonase) 50 MCG/ACT nasal sprayIndication s:Sore throat,Subacute cough,Congestio n of nasal sinus,Seasonal allergies SPRAY 2 SPRAYS INTO EACH NOSTRIL EVERY DAY 48 mL 02/09/20 24 Active cetirizine (ZyrTEC) 10 MG tabletIndicatio ns:Sore throat,Subacute cough,Congestio n of nasal sinus,Seasonal allergies TAKE 1 TABLET BY MOUTH EVERY DAY 90 tablet 02/09/20 24 Active Fluocinolone Acetonide Scalp ([place]aton-Smoothe/ FS Scalp) 0.01 % oilIndications: Psoriasis Apply on scalp twice weekly at night and cover with scarf. 118.28 mL 3 03/01/20 24 Active Clobetasol Propionate 0.05 % shampooIndicati ons:Psoriasis Use to wash hair daily 118 mL 03/01/20 24 Active apremilast (Otezla) 30 MG tabletIndicatio ns:Psoriasis Take 1 tablet (30 mg) by mouth 2 times daily. Do not crush, chew, or split tablets. 60 tablet 11 04/05/20 24 Active albuterol 108 (90 Base) MCG/ACT inhaler Inhale 2 puffs every 4 (four) hours if needed for wheezing or shortness of breath. 18 g 3 08/13/19 25 026 Active magnesium oxide (Mag-Ox) 400 (240 Mg) MG tablet TAKE 1 TABLET BY MOUTH EVERY DAY 90 tablet 08/29/19 25 Active magnesium oxide (Mag-Ox) 400 (240 Mg) MG tablet TAKE 1 TABLET BY MOUTH EVERY DAY 90 tablet 05/30/20 24 025 Discontinued acetaminophen (Tylenol Extra Strength) 500 MG tabletIndicatio ns:Chronic right hip pain Take 2 tablets (1,000 mg) by mouth every 6 (six) hours if needed for mild pain for up to 10 days. 30 tablet 1 08/06/19 25 025 Active Problems Problem Noted Date Diagnosed Date Vaginal dryness 09/05/2024 Chronic right hip pain 08/06/2024 Numbness and tingling 12/04/2023 Discomfort of left eye 12/04/2023 Headache 11/22/2023 Assessment & Plan (11/22/2023 5:36 PM EDT): Pt reports having episodes of pressure/shocking sensation in left > right temporal area and in her left eye ,also some bulging in area below her left eye. Here complete ENT,head and neuro exam are normal. There are no skin vesicular rash noted and symptoms are present already for weeks so varicella zoster seems unlikely at this point . Migraine is in the diff ,trigeminal neuralgias as well in diff -advised pt to bring photo if noted swelling below eye to show to her PCP at upcoming apt-currently no abnormality noted on exam -will check chem and TSH -as possible migraine [facility] will start PO mag daily and advised tylenol prn for mild pain and Excedrin if more intense -f up w PCP -has already an apt schedule for 12/04/2023 -advised to see her director clinical applications as well -pt will to schedule apt -alarm signs and symptoms discussed Complete tear of right ACL 11/14/2023 Hypertriglyceridemia 07/20/2023 Assessment & Plan (07/20/2023 3:20 PM EST): Today extensive discussion was done about life style modifications I advise healthy diet (low calorie) and cardiovascular exercise Closed nondisplaced fracture of proximal phalanx of right thumb 07/19/2023 07/19/2023 Gastroesophageal reflux disease 07/19/2023 07/19/2023 Psoriasis 07/19/2023 07/19/2023 Assessment & Plan (08/06/2024 4:33 PM EST): Patient will be f/u dermatology clinic Assessment & Plan (12/04/2023 5:06 PM EDT): Derm referral done Finger nail disorder could be related to this problem I advise to mention it to funnel setter Seborrheic dermatitis 07/19/2023 07/19/2023 Thumb pain, right 07/19/2023 07/19/2023 Anxiety with depression 06/05/2023 Assessment & Plan (01/02/2024 11:40 AM EDT): I will refer patient again for therapy I will refill her hydroxyzine (only medication I will prescribe for now as patient may have mood disorder, bipolar disorder?) Assessment & Plan (12/04/2023 5:05 PM EDT): Counseling done Patient declines referral to a therapist I will start her on hydroxyzine 25mg Q 8hrs PRN RTC 4 weeks Assessment & Plan (07/20/2023 3:20 PM EST): Controlled c/w current interventions Assessment & Plan (06/05/2023 3:30 PM EST): Patient feels stable Counseling done I will continue to follow up Encounter for preventive care 06/05/2023 Assessment & Plan (08/06/2024 4:33 PM EST): See HPI Assessment & Plan (06/05/2023 3:30 PM EST): Please see HPI Vitamin D deficiency 03/31/2017 Alopecia 03/31/2017 07/19/2023 Generalized pruritus 03/31/2017 07/19/2023 History of hysterectomy for benign disease 03/3107/19/2023 Mood disorder 03/31/2017 07/19/2023 Onychomycosis 03/31/2017 07/19/2023 Encounters Date Type Department Care Team Description 09/05/2024 Orders Only [facility] [address] [place] [address] Jossy Michele MD Vaginal dryness (Primary Dx); Alopecia 08/29/2024 Refill [facility] [address] [facility] [place] [address] Jossy Michele MD 08/13/2024 Refill [facility] [address] [facility] [place] [address] Jossy Michele MD 08/09/2024 Telephone [facility] [address] [facility] [place] [address] Fito Urbano [place] X-RAY RESULTS 08/06/2024 2:00 PM EST Office Visit [facility] [address] [facility] [place] [address] Jossy Michele MD Chronic right hip pain (Primary Dx); Encounter for preventive care; Psoriasis; Encounter for immunization 08/06/2024 Travel 07/22/2024 Telephone [facility] [address] [facility] [place] [address] Jossy Michele MD No Show (Pt NO SHOW for Physical Appt with Dr. Live 07/22/2024. Sent NO SHOW letter.) 07/10/2024 Patient Outreach [facility] [address] [place] [phone] Jossy Michele MD Pre-visit Planning ([facility] screening completed on 10/16/2023) from Last 3 Months Immunizations Name Administration Dates Next Due Hep B, Adolescent or Pediatric 03/08/2005,1996,02/12/1997 Influenza injectable quadriv alent IIV4 with preservative 07/08/2015 Pfizer Covid-19 Vaccine 12+ 11/26/2020, 1 Pneumococcal Polysaccharide PPSV23 11/28/2014 TD (adult), 2 Lf tetanus tox oid, preservative free, adsorbed 03/08/2005 Tdap 08/07/2024,02/23/2012 Social History Tobacco Use Types Packs/Day Years Used Date Smoking Tobacco: Never Passive Smoke Exposure: Never Smokeless Tobacco: Never Tobacco Cessation:Counseling Given: Not Answered Alcohol Use Standard Drinks/Week Comments Yes 0 [...] Orientation Straight 05/23/2022 10 :14 AM EDT Last Filed Vital Signs Vital Sign Reading Time Taken Comments Blood Pressure 114/64 08/06/2024 1:53 PM EST Pulse 65 08/06/2024 1:53 PM EST Temperature 35.6 ??C (96.1 ??F) 08/06/2024 1:53 PM ES T Respiratory Rate 18 08/06/2024 1:53 PM EST Oxygen Saturation 97% 12/04/2023 3:10 PM EDT Inhaled Oxygen Concentration - - Weight 71.4 kg (157 lb 6.4 oz) 08/06/2024 1:53 P M EST Height 154.9 cm (5' 1 ) 08/06/2024 1:53 PM EST Body Mass Index 29.74 08/06/2024 1:53 PM EST Plan of Treatment Health Maintenance Due Date Last Done Comments Family Planning (PISQ) 2000 Pap Smear 2006 HPV/Cotest 2015 COVID-19 Vaccine ( season) 2024 07/01/2021, 11/26/2020, 11/05/2020 Influenza Vaccine (#1) 2024 07/08/2015 Alcohol/Substance Use Screening 08/06/2025 08/06/2024 Depression Screening 08/06/2025 08/06/2024, 08/06/19 SDOH Screening 08/06/2025 08/06/2024 Tobacco Screening 08/06/2025 08/06/2024 DTaP/Tdap/Td Vaccines (3 - Td or Tdap) 08/07/2034 08/07/2024, 02/23/2012, 03/08/2005 Zoster Vaccines (1 of 2) 2035 RSV Patients and Patients Aged 60 years or older (1 - 1-dose 75+ series) 2060 Hepatitis B Vaccines Completed 03/08/2005, 03/25/1997, 02/12/1997 Pneumococcal Vaccine: Pediatrics (0 to 5 Years) and At-Risk Patients (6 to 49) Years) Aged Out 11/28/2014 No longer eligible based on patient's age to complete this topic HIV Screening Completed 06/05/2023, 01/26/2023 Hepatitis C Screening Completed 06/05/2023 , 01/26/2023, 01/26/2023, Additional history exists Cervical Cancer Screening Discontinued HIB Vaccines Aged Out No longer eligi ble based on patient's age to complete this topic HPV Vaccines Aged Out No longer eligi ble based on patient's age to complete this topic Hepatitis A Vaccines Aged Out No long er eligible based on patient's age to complete this topic IPV Vaccines Aged Out No longer eligi ble based on patient's age to complete this topic Meningococcal Vaccine Aged Out No julianna sam eligible based on patient's age to complete this topic RSV under 20 months Aged Out No longe r eligible based on patient's age to complete this topic Rotavirus Vaccines Aged Out No longer eligible based on patient's age to complete this topic Procedures Procedure Name Priority Date/Time Associated Diagnosis Comments XR HIP 2 OR 3 VIEWS RIGHT Routine 08/06/2024 3:33 PM EST Chronic right hip pain HEPATITIS C AB W/REFL TO HCV RNA, QN, PCR Routine 06/05/2023 3:36 PM EST Encounter for preventive care HIV 1/2 ANTIGEN/ANTIBODY, FOURTH GENERATION W/RFL Routine 06/05/2023 3:36 PM EST Encounter for preventive care from Last 3 Months or Most Recently Relevant to Health Maintenance Results * XR Hip 2 or 3 Views Right (08/06/2024 3:33 PM EST) Anatomical Region Laterality Modality Lower Extremities, Hip Right Radiograp hic Imaging 08/06/2024 3:33 PM EST Narrative 08/06/2024 3:54 PM EST ?[place] [facility] ?[address] ?[place] [address] ?XRay Report ? Signed ? Patient: Hodder,Caroline ?MR#: [id number] ?? 51 ? : 1985 ?Acct:[id number] ? Age/Sex: 39 / F ?ADM Date: 08/06/24 ? Loc: HO.HHCX ? Attending Dr: Jossy Lares MD ? Ordering Physician: Jossy Michele MD ?? Date of Service: 08/06/24 ?? Procedure(s): XR hip RT min 2V ?? Accession Number(s): [id number] ? cc: Jossy Michele MD ? EXAMINATION: [...] DD/ 1533 ? TD/TT: 08/06/24 1542 ? Auger Supervisor: ? Procedure Note Luis Villeda - 08/06/[address] [address] XRay Report Signed Patient: Caroline Del AngelMR#: [id number] 51 : 1985Acct:[id number] Age/Sex: 39 / FADM Date: 08/06/24 Loc: HO.HHCX Attending Dr: Jossy Lares MD Ordering Physician: Jossy Michele MD Date of Service: 08/06/24 Procedure(s): XR hip RT min 2V Accession Number(s): [id number] cc: Jossy Michele MD EXAMINATION: XR HIP, [...] 08/06/24 1551 DD/ 1533 TD/TT: 08/06/24 1542 Auger Supervisor: us Jossy Lares MD IMG XR PROCEDURES Fin al Result * Hepatitis C Antibody with Reflex to HCV, RNA, Quantitative, Real-Time PCR (06/05/2023 3:36 PM EST) Hepatitis C Antibody Nonreactive Nonreactive [facility] Comment:Antibodies to HCV no t detected; does not exclude early acuteHCV infection. Blood Venous blood specimen / Unknown 06/05/2023 3:36 PM EST 06/05/2023 5:26 PM EST us Jossy Lares MD LAB BLOOD ORDERABLES Final Result [facility] [address] [place] [phone] * HIV-1/2 Antigen and Antibodies, Fourth Generation, with Reflexes (06/05/2023 3:36 PM EST) HIV AB/AG Nonreactive Nonreactive [facility] Comment:HIV-1 p24 Ag and/or HIV-1/HIV-2 Ab not detected.A test result that is nonreactive does not exclude thepossibility of exposure to or infection with HIV-1 and/orHIV-2. Nonreactive results in this assay for individualswith prior exposure to HIV-1 and/or HIV-2 may be due toantigen and antibody levels that are below the limit ofdetection of this assay.The [employer] HIV Ag/Ab Combo assay result andsupplemental assay results should be interpreted inconjunction with the patient's clinical presentation,history and other laboratory results. If the results areinconsistent with clinical evidence, additional testing issuggested to confirm the result. Blood Venous blood specimen / Unknown 06/05/2023 3:36 PM EST 06/05/2023 5:26 PM EST us Jossy Lares MD LAB BLOOD ORDERABLES Final Result [facility] [address] [place] [phone] from Last 3 Months or Most Recently Relevant to Health Maintenance Insurance [facility] STANDARD Care Teams Asbestos Hazard Abatement Worker Relationship Specialty Start Date End Date Jossy Michele MD [address] [place] [phone] PCP - General Family Medicine 04/04/18
--- OUTSIDE RECORDS SUMMARY | 2024-09-06 08:55 | XMS_ITS | Encounter Summary ---
Author Organization [employer] Address [address] [facility] 7t [place] [address] Care Team Providers Care Flight Controls Engineer Name Role Phone Jossy Michele MD Primary Care Provide r Reason for Visit * Reason Onset Date Comments Call Back Request 08/13/2024 Encounter Details Date Type Department Care Team ([facility] Contact Info) Description 08/13/2024 Refill [facility] [address] [place], [place] [phone] Jossy Michele MD [address] [place] [address] Social History Tobacco Use Types Packs/Day Years [...] encounter Miscellaneous Notes * Telephone Encounter - Sherie Yip RN - 08/13/2024 3:46 PM EST TC placed to patient [phone] in regards to below message. Patient reports she needs a refill on albuterol inhaler (medication is not on medlist-active vs discontinued) however when RN searches chart it does appear. Please review and send medication if agreeable. Patient is also requesting a medication for her alopecia (listed on problem list). Please advise. * Telephone Encounter - Liset Valentine - 08/13/2024 3:13 PM EST Tc from pt requesting a callback as she's requesting (inhale) also requesting a medication for her alopecia. [phone] documented in this encounter Plan of Treatment Not on file documented as of this encounter Visit Diagnoses Not on filedocumented in this encounter Additional Health Concerns Assessment Noted Time PHQ-9 Depression Total Score: 0 08/06/19 25 1:53 PM EST documented as of this encounter Care Teams Flight Controls Engineer Relationship Specialty Start Date End Date Jossy Michele MD [address] [place] [address] [place] [address] PCP - General Family Medicine 04/04/18 documented as of this encounter
--- OUTSIDE RECORDS SUMMARY | 2024-09-06 08:55 | XMS_ITS | Encounter Summary ---
Author Organization [employer] Address [address] [facility] 7t [place] [address] Care Team Providers Care Curriculum Advisory Teacher Name Role Phone Jossy Michele MD Primary Care Provide r Reason for Visit * Reason Comments Med Refill Encounter Details Date Type Department Care Team ([facility] Contact Info) Description 08/29/2024 Refill [facility] [address] [place], [place] [phone] Jossy Michele MD [address] [place] [address] Social History Tobacco Use Types Packs/Day Years [...] documented as of this encounter Care Teams Curriculum Advisory Teacher Relationship Specialty Start Date End Date Jossy Michele MD [address] [place] [address] PCP - General Family Medicine 04/04/18 documented as of this encounter
== END 2024-09-06 08:53 | disposition home or self-care (01) ==
PROVIDERS: Visit Provider Physician Assistant
DX: M70.61 Trochanteric bursitis, right hip (principal)
CPT/HCPCS: 99213

== ENCOUNTER → 2024-09-06 08:35 | Outpatient (BNVA) | payer MEDICAID, SELFPAY | PROVIDERS: Visit Provider Physician Assistant | DX: M70.61 Trochanteric bursitis, right hip (principal) | CPT/HCPCS: 99212 ==

== ENCOUNTER 2024-09-19 07:37 | Outpatient (RCR) | payer MEDICAID, SELFPAY ==
--- NOTE | 2024-09-19 08:51 | MHC.PT.EP ---
[facility] [place] Office [place] Office [place] Office [address] Celine Salcedo [address] [phone] F: [phone] F: [phone] F: [phone] F: [phone] Physical Therapy Plan of Care Date of Evaluation: 09/19/24 Date of Surgery: NA Diagnosis: Trochanteric bursitis, R hip Assessment: Caorline is a 39 year old female who is referred to PT for trochanteric bursitis, R hip . She reports of having pain in R hip for about 6 months. She denies any trauma or falls. It was spontaneous onset of pain and it has been about the same. On PT examination she presents with constant pain of 4/10 in R hip which gets worse with standing, walking, hiking, TTP over R greater trochanter, all hip ROM, decreased R hip strength and mildly altered posture. She lives with her teenage children and is independent with all ADLS but has pain with standing and walking. She works in [employer]- mostly standing and walking at work. She enjoys hiking, jogging and walking but has not been able to do due to pain. She would benefit from skilled PT to address the aforementioned impairments and improve tolerance to funcitonal activities. Frequency and Duration: The patient will be seen 2/week for 5 weeks Short Term Goals: 1. Pt will have 50% decrease in pain which will enable her to tolerate R SL in 2 weeks. 2. Pt will deny having any pain at rest in 3 weeks Longterm Goals: 1. Pt will demonstrate an increase in muscle strength by 1 grade which will enable her to stand and walking without pain in 5 weeks 2. Pt will be independent with all HEP and return to PLOF- jogging and hiking without pain in 5 weeks Treatment Plan: Modalities to reduce pain, spasms and effusion. Manual therapy to restore motion and function. Therapeutic exercise to improve strength and flexibility. Neuromuscular re-education for posture and balance. Therapeutic activities to return to functional activities of daily living. Electronically signed by: Lanette Thompson PT DPT Please sign and return to therapist. Thank you for your referral.
--- NOTE | 2024-09-30 13:18 | MHC.PT.DC ---
[facility] [place] Office [place] Office [place] Office [address] Katty Salcedo [address] [phone] F: [phone] F: [phone] F: [phone] F: [phone] Physical Therapy Discharge Report Diagnosis: Trochanteric bursitis, R hip Date of Surgery: NA Date of Evaluation: 09/19/24 Date of Discharge: 09/30/24 Treatments to Date: 1 Cancellations to Date: 0 No Shows to Date: 0 Discharge Status: Visit Non-compliance Discharge Summary: Caroline kruger showed 3 appointments after her evaluation. Attempted to call patient however she did not answer any calls. She is therefore being d/c from PT for non compliance. Electronically signed by: Lanette Thompson PT DPT Please sign and return to therapist. Thank you for your referral.
== END 2024-09-30 13:18 | disposition home or self-care (01) ==
LOC: HO.PT 07:37
PROVIDERS: PCP Internal Medicine; Visit Provider Physician Assistant
DX: M70.61 Trochanteric bursitis, right hip (principal)
CPT/HCPCS: 97110; 97161

== ENCOUNTER 2024-09-24 | Outpatient (REF) | payer MEDICAID, SELFPAY ==
--- OUTSIDE RECORDS SUMMARY | 2024-09-25 14:16 | XMS_ITS | Clinical Summary ---
Author Organization [employer] [facility] ity Address [address] [place] [address] Care Team Providers Care Systems Auditor Name Role Phone Unavailable Primary Care Provider [...]
[2024-09-25 14:54] LABS: Bacterial Vaginosis PCR POSITIVE (Negative); Candida Group PCR NOT DETECTED (Not Detect); Candida glab krusei PCR NOT DETECTED (Not Detect); Trichomonas vaginalis PCR NOT DETECTED (Not Detect)
[2024-10-01 14:46] LABS: HPV Genotype 16 Negative (Negative); HPV Genotype 18 Negative (Negative); HPV High Risk Positive (Negative)
== END 2024-09-24 00:01 | disposition home or self-care (01) ==
LOC: HO.HHCLNP
PROVIDERS: Visit Provider Advanced Practice Midwife
DX: N87.0 Mild cervical dysplasia (principal); N89.8 Other specified noninflammatory disorders of vagina
CPT/HCPCS: 81515; 87626; 88175

== ENCOUNTER 2024-09-24 16:32 | Outpatient (REF) | payer MEDICAID, SELFPAY ==
--- OUTSIDE RECORDS SUMMARY | 2024-09-24 20:16 | XMS_ITS | Clinical Summary ---
Author Organization [employer] [facility] ity Address [address] [place] [address] Care Team Providers Care Alcohol Still Operator Name Role Phone Unavailable Primary Care Provider Unavailabl e Social History Tobacco Use Types Packs/Day Years Used Date Smoking Tobacco: Never Assessed Comments Unknown Sex and Gender Information Value Date Recorded Sex Assigned at Not on file Legal Sex Female 5:08 AM EST Gender Identity Not on file Sexual Orientation Not on file Plan of Treatment Health Maintenance Due Date Last Done Comments DTaP,Tdap,and Td Vaccines (1 - Tdap) 2004 Hepatitis B Vaccines (1 of 3 - 19+ 3-dose series) 2004 Cervical Cancer Screening: P ap Smear 2006 COVID-19 Vaccine ( - 2023-2 5 season) 2024 Influenza Vaccine (#1) 2024 HIB Vaccines Aged Out No longer eligi [...] on patient's age to complete this topic MMR Vaccines Aged Out No longer eligi ble based on patient's age to complete this topic Meningococcal ACWY Vaccine Aged Out N o longer eligible based on patient's age to complete this topic Meningococcal B Vacine Aged Out No lo nger eligible based on patient's age to complete this topic Pneumococcal Vaccine: Pediat rics (0 to 5 Years) and At-Risk Patients (6 to 64 Years) Aged Out No longer eligible b ased on patient's age to complete this topic RSV Immunization Patients Un jason 20 months Aged Out No longer eligible b ased on patient's age to complete this topic Varicella Vaccines Aged Out No longer eligible based on patient's age to complete this topic
[2024-09-27 19:24] LABS: Follicle Stimulating Hormone 4.5 mIU/mL
[2024-10-01 01:24] LABS: Estradiol Ultra Sensitive 166 pg/mL
== END 2024-09-24 16:33 | disposition home or self-care (01) ==
LOC: HO.HHCL 16:32
PROVIDERS: Visit Provider Advanced Practice Midwife
DX: R23.2 Flushing (principal)
CPT/HCPCS: 36415; 82670; 83001

== ENCOUNTER 2024-10-25 11:11 | Outpatient (REF) | payer MEDICAID, SELFPAY ==
--- OUTSIDE RECORDS SUMMARY | 2024-10-25 13:02 | XMS_ITS | Clinical Summary ---
Author Organization [employer] [facility] ity Address [address] [place] [address] Care Team Providers Care Stonework Supervisor Name Role Phone Unavailable Primary Care Provider [...] - 2023-2 5 season) 2024 Influenza Vaccine (Season Ended) 2025 HIB Vaccines Aged Out No longer eligi [...]
--- OUTSIDE RECORDS SUMMARY | 2024-10-25 13:02 | XMS_ITS | Encounter Summary ---
Author Organization [employer] Address [address] [facility] 7t [place] [address] Care Team Providers Care Wire Saw Operator Name Role Phone Jossy Michele MD Primary Care Provide r Reason for Visit * Reason Comments Med Refill Encounter Details Date Type Department Care Team ([facility] Contact Info) Description 04/05/2024 Refill [facility] [address] [place], [place] [phone] Timbo Gill MD [address] [place], [place] [phone] Psoriasis Social History Tobacco Use Types Packs/Day [...] as of this encounter Plan of Treatment Upcoming Encounters Date Type Department Care Team (Late st Contact Info) Description 12/06/2024 9:00 AM EDT Office Visit [facility] [address] [place] [phone] Timbo Gill MD [address] [place] [phone] 12/19/2024 1:00 PM EDT Office Visit [facility] [address] [place] [address] Jossy Michele MD [address] [place] [phone] documented as of this encounter Visit Diagnoses Diagnosis Psoriasis Other psoriasis documented in this encounter Additional Health Concerns Assessment Noted Time PHQ-9 Depression Total Score: 0 07/20/20 23 2:58 PM EST documented as of this encounter Care Teams Wire Saw Operator Relationship Specialty Start Date End Date Jossy Michele MD [address] [place] [phone] PCP - General Family Medicine 04/04/18 documented as of this encounter
--- OUTSIDE RECORDS SUMMARY | 2024-10-25 13:02 | XMS_ITS | Encounter Summary ---
Author Organization [employer] Address [address] [facility] 7t [place] [address] Care Team Providers Care Exhibit Cleaner Name Role Phone Jossy Michele MD Primary Care Provide r Reason for Visit * Reason Comments Med Change Request Encounter Details Date Type Department Care Team (Late Contact Info) Description 01/01/2023 Refill [facility] [address] [place], [place] [phone] Gab Godoy FNP Vitamin D deficiency Social [...] Description 12/06/2024 9:00 AM EDT Office Visit [facility] [address] [place], [place] [phone] Timbo Gill MD [address] [place], [place] [phone] 12/19/2024 1:00 PM EDT Office Visit [facility] [address] [place] [address] Jossy Michele MD [address] [place] [address] documented as of this encounter Visit Diagnoses Diagnosis Vitamin D deficiency documented in this encounter Additional Health Concerns Assessment Noted Time PHQ-9 Depression Total Score: 13 023 7:06 PM EDT documented as of this encounter Care Teams Exhibit Cleaner Relationship Specialty Start Date End Date Jossy Michele MD [address] [place] [phone] PCP - General Family Medicine 04/04/18 documented as of this encounter
--- OUTSIDE RECORDS SUMMARY | 2024-10-25 13:03 | XMS_ITS | Encounter Summary ---
Author Organization [employer] Address 75 [facility] 7t [place] [address] Care Team Providers Care Industrial Tech Instructor Name Role Phone Jossy Michele MD Primary Care Provide r Encounter Details Date Type Department Care Team (Late st Contact Info) Description 10/24/2024 Patient Outreach [facility] [address] [place], [place] [phone] Jossy Michele MD [address] [place], [place] [phone] Social History Tobacco Use Types Packs/Day Years [...] not want or need it 07/24 Comments No Sex and Gender Information Value Date Recorded Sex Assigned at Female 05/23/2022 10:14 AM EDT Legal Sex Female 10:14 AM EDT Gender Identity Female 05/23/2022 10:14 AM EDT Sexual Orientation Straight 05/23/2022 10 :14 AM EDT documented as of this encounter Plan of Treatment Upcoming Encounters Date Type Department Care Team (Late st Contact Info) Description 12/06/2024 9:00 AM EDT Office Visit [facility] [address] [place] [phone] Timbo Gill MD [address] [place] [phone] 12/19/2024 1:00 PM EDT Office Visit [facility] [address] [place] [address] Jossy Michele MD [address] [place] [phone] documented as of this encounter Visit Diagnoses Not on filedocumented in this encounter Additional Health Concerns Assessment Noted Time PHQ-9 Depression Total Score: 0 08/06/19 25 1:53 PM EST documented as of this encounter Care Teams Industrial Tech Instructor Relationship Specialty Start Date End Date Jossy Michele MD [address] [place] [phone] PCP - General Family Medicine 04/04/18 documented as of this encounter
--- OUTSIDE RECORDS SUMMARY | 2024-10-25 13:03 | XMS_ITS ---
Author Organization [employer] Address 75 [facility] 7t [place] [address] Care Team Providers Care Pole Frame Construction Worker Name Role Phone Jossy Michele MD Primary Care Provide r CHW Complex Status:Outreach In Progress (Enrolling) Start date:10/24/2024 Enrollment reason:ADT Feed Overview ED- Pt went to [facility] ED on 10/23/24. Please outreach for enrollment. Case Team Name Relationship Phone Adriana Heller (Responsible Staff) Continued Care and Services Coordination
--- OUTSIDE RECORDS SUMMARY | 2024-10-25 13:03 | XMS_ITS | Encounter Summary ---
Author Organization [employer] Address 75 [facility] 7t [place] [address] Care Team Providers Care Director Mba Name Role Phone Jossy Michele MD Primary Care Provide r Reason for Visit * Reason Comments Care Coordination CHW chart review Encounter Details Date Type Department Care Team (Latest Contact Info) Description 10/24/2024 Patient Outreach [facility] 230 [place], [place] [phone] Jossy Michele MD 230 [place] [address] Care Coordination (CHW chart review) Social History Tobacco Use Types Packs/Day Years [...] is your housing situation today? I have pepepaula laird 06/05/[address] you [...] AM EDT documented as of this encounter Progress Notes * Adriana Heller - 10/24/2024 11:40 AM EDT CM/C3 CHW Adriana Heller Chart Review CHW Adriana Heller reviewed chart review completed by TANISHA Sanchez RN, performed chart review, in anticipation of initial assessment with patient, as patient has stratified for C3 Adult Complex Care through the ADT feed. History significant for vitamin D deficiency, anxiety with depression, alopecia, closed nondisplaced fracture of proximal phalanx of right thumb, GERD, generalized pruritus, hysterectomy for benign disease, mood disorder, onychomycosis, psoriasis, seborrheic dermatitis, hypertriglyceridemia, complete tear of right ACL, headache, and chronic right hip pain. Specialists include [facility]PER[facility], [facility] Derm, [facility] Ortho, Behavioral Health, andOptometry. ED visits within the last 12 months include [facility] 10/23/24 Dx headache. Last appointment in P CP office on 10/21/24. Next appointment scheduled for 10/25/24 at 10:45am with Derm and 12/19/24 at 1:00pm with PCP for follow up. documented in this encounter Plan of Treatment Upcoming Encounters Date Type Department Care Team (Late st Contact Info) Description 12/06/2024 9:00 AM EDT Office Visit [facility] [address] [place] [phone] Timbo Gill MD [address] [place] [address] [phone] 12/19/2024 1:00 PM EDT Office Visit [facility] [address] [place] [address] [phone] Jossy Michele MD [address] [place] [address] [phone] documented as of this encounter Visit Diagnoses Not on filedocumented in this encounter Additional Health Concerns Assessment Noted Time PHQ-9 Depression Total Score: 0 08/06/19 25 1:53 PM EST documented as of this encounter Care Teams Director Mba Relationship Specialty Start Date End Date Jossy Michele MD [address] [place] [address] [phone] PCP - General Family Medicine 04/04/18 documented as of this encounter
--- OUTSIDE RECORDS SUMMARY | 2024-10-25 13:03 | XMS_ITS | Encounter Summary ---
Author Organization [employer] Address 75 [facility] 7t [place] [address] Care Team Providers Care Continuous Miner Operator Name Role Phone Jossy Michele MD Primary Care Provide r Reason for Visit * Reason Comments Care Coordination C3- chart review Encounter Details Date Type Department Care Team (Latest Contact Info) Description 10/24/2024 Patient Outreach [facility] 230 [place], [place] [phone] Jossy Michele MD 230 [place] [address] Care Coordination (C3CM- chart review) Social History Tobacco Use Types [...] as of this encounter Progress Notes * Jake Sanchez RN - 10/24/2024 11:08 AM EDT Jake Sanchez RN, performed chart review, in anticipation [...] and chronic right hip pain. Specialists include [facility], [facility] Derm, [facility] Ortho, Behavioral Health, andOptometry. ED visits within the last 12 months include [facility] 10/23/24 Dx headache. Last appointment in P [facility] office on 10/21/24. Next appointment scheduled for 10/25/24 at 10:45am with Derm and 12/19/24 at 1:00pm with PCP for follow up. documented in this encounter Plan of Treatment Upcoming Encounters Date Type Department Care Team ([facility] st Contact Info) Description 12/06/2024 9:00 AM EDT Office Visit [facility] [address] [place] [address] Timbo Gill MD 230 [place], [place] [phone] 12/19/2024 1:00 PM EDT Office Visit [facility] [address] [place], [place] [phone] Jossy Michele MD 230 [place] [address] documented as of this encounter Visit Diagnoses Not on filedocumented in this encounter Additional Health Concerns Assessment Noted Time PHQ-9 Depression Total Score: 0 08/06/19 25 1:53 PM EST documented as of this encounter Care Teams Continuous Miner Operator Relationship Specialty Start Date End Date Jossy Michele MD [address] [place] [phone] PCP - General Family Medicine 04/04/18 documented as of this encounter
--- OUTSIDE RECORDS SUMMARY | 2024-10-25 13:03 | XMS_ITS | Encounter Summary ---
Author Organization [employer] Address 75 [facility] 7t [place] [address] Care Team Providers Care Binder Fixer Name Role Phone Jossy Michele MD Primary Care Provide r Reason for Visit * Reason Onset Date Comments Nurse Triage 10/21/2024 Encounter Details Date Type Department Care Team ([facility] Contact Info) Description 10/21/2024 Telephone [facility] 230 [place], [place] [phone] Jossy Michele MD 230 [place], [place] [phone] Nurse Triage Social History Tobacco Use Types Packs/Day Years [...] encounter Miscellaneous Notes * Telephone Encounter - Carole Mancera RN - 10/21/2024 12:42 PM EDT Images from the original note were not included. Call returned to Caroline Del Angel for triage below. No answer LVM to return call to [facility] triage line [phone]. Reviewed [facility] operating hours and that wait times vary. Will also send portal message to return call. FW: Headache/nausea Received: Today Carole Mancera RN P [place] Triage Nurse Previous Messages Headache/nausea (Newest Message First) View All Conversations on this Encounter You routed conversation to [place] Triage NurseJust now (12:38 PM) Caroline Ballesteros [facility] Clinical Support (supporting Jossy Lares MD)14 minutes ago (12:24 PM) MH Good afternoon, I've had a strange headache for about a week now. At times it will come on strong with nausea but not always. The headache has been constant. Never stops, just feels better. I've taken motrin/Tylenolbut I don't feel it helps. Still feels the same as when I haven't taken any. One time during the weekend I felt tingling in my forehead but not sure if it's related since I haven't felt anything likethat again. Could have been just a random thing. I don't feel sick or have any other symptoms. Justwondering if I should make an appointment or wait for it to go away on its own. Hurts in the nape of my neck and crown. documented in this encounter Plan of Treatment Upcoming Encounters Date Type Department Care Team (Late st Contact Info) Description 12/06/2024 9:00 AM EDT Office Visit [facility] [address] [place] [phone] Timbo Gill MD [address] [place] [address] [phone] 12/19/2024 1:00 PM EDT Office Visit [facility] [address] [place] [phone] Jossy Michele MD [address] [place] [phone] documented as of this encounter Visit Diagnoses Not on filedocumented in this encounter Additional Health Concerns Assessment Noted Time PHQ-9 Depression Total Score: 0 08/06/19 25 1:53 PM EST documented as of this encounter Care Teams Binder Fixer Relationship Specialty Start Date End Date Jossy Michele MD [address] [place] [phone] PCP - General Family Medicine 04/04/18 documented as of this encounter
--- OUTSIDE RECORDS SUMMARY | 2024-10-25 13:03 | XMS_ITS | Encounter Summary ---
Author Organization [employer] Address 75 [facility] 7t [place] [address] Care Team Providers Care Upper Caser Name Role Phone Jossy Michele MD Primary Care Provide r Reason for Visit * Reason Comments Headache Encounter Details Date Type Department Care Team (Latest Contact Info) Description 10/21/2024 5:40 PM EDT Office Visit [facility] 230 [place], [place] [phone] Kailyn Barrera NP 230 [place] [address] Acute nonintractable headache, unspecified headache type (Primary Dx) Social History Tobacco Use Types Packs/Day Years [...] Sign Reading Time Taken Comments Blood Pressure 130/80 10/21/2024 5:24 PM EDT Pulse 70 10/21/2024 5:24 PM EDT Temperature 36.9 ??C (98.4 ??F) 10/21/2024 5:24 PM ED T Respiratory Rate 20 10/21/2024 5:24 PM EDT Oxygen Saturation 100% 10/21/2024 5:24 PM EDT Inhaled Oxygen Concentration - - Weight 70.4 kg (155 lb 3.2 oz) 10/21/2024 5:24 P M EDT Height 154.9 cm (5' 1 ) 10/21/2024 5:24 PM EDT Body Mass Index 29.32 10/21/2024 5:24 PM EDT documented in this encounter Progress Notes * Kailyn Barrera NP - 10/21/2024 5:40 PM EDT SUBJECTIVE: Caroline Almanza is a 39 y.o. female who presents [facility] for a sick visit. Denies recent illness, injury, or hospitalization. Here with boyfriend Dwight Headache Associated symptoms include nausea. Pertinent negatives include no abdominal pain, back pain, fever, neck pain or weakness. Complains of persistent headaches for the last week. Located in the occipital region of her head radiating down to the nape. Rates the headache 4/10 and constant. Describes it as a shooting pain. Notes varying intensities and associated nausea at times. She notes the headache is 5/10 at its worst. Is not able to pinpoint anything that makes it better or worse. She has tried ibuprofen and Tylenol with no change. She denies vision changes, confusion, photo/photosensitivities, or vomiting. Review of Systems Constitutional: Negative. Negative for chills and fever. Respiratory: Negative for chest tightness and shortness of breath. Cardiovascular: Negative for chest pain. Gastrointestinal: Positive for nausea. Negative for abdominal pain, constipation and diarrhea. Genitourinary: Negative for dysuria. Musculoskeletal: Negative for arthralgias, back pain, myalgias and neck pain. Skin: Negative. Negative for rash and wound. Neurological: Positive for headaches. Negative for weakness and light-headedness. Psychiatric/Behavioral: Negative for behavioral problems, confusion, decreased concentration and suicidal ideas. OBJECTIVE: Visit Vitals BP 130/80 (BP Location: Left arm, Patient Position: Sitting, BP Cuff Size: Adult) Pulse 70 Temp 98.4 ??F (36.9 ??C) (Temporal) Resp 20 Ht 5' 1 (1.549 m) Wt 155 lb 3.2 oz (70.4 kg) SpO2 100% BMI 29.32 kg/m?? OB Status Hysterectomy Smoking Status Never BSA 1.74 m?? Patient Active Problem List Diagnosis Vitamin D deficiency Anxiety with depression Encounter for preventive care Alopecia Closed nondisplaced fracture of proximal phalanx of right thumb Gastroesophageal reflux disease Generalized pruritus History of hysterectomy for benign disease Mood disorder ([facility]) Onychomycosis Psoriasis Seborrheic dermatitis Thumb pain, right Hypertriglyceridemia Complete tear of right ACL Headache Numbness and tingling Discomfort of left eye Chronic right hip pain Vaginal dryness Physical Exam Vitals reviewed. Constitutional: General: She is not in acute distress. Appearance: Normal appearance. She is not ill-appearing. HENT: Head: Normocephalic and atraumatic. Right Ear: External ear normal. Left Ear: External ear normal. Nose: Nose normal. Eyes: General: No scleral icterus. Extraocular Movements: Extraocular movements intact. Cardiovascular: Rate and Rhythm: Normal rate and regular rhythm. Pulses: Normal pulses. Heart sounds: Normal heart sounds. Pulmonary: Effort: Pulmonary effort is normal. No respiratory distress. Breath sounds: Normal breath sounds. Musculoskeletal: General: Normal range of motion. Cervical back: Normal range of motion and neck supple. Lymphadenopathy: Cervical: No cervical adenopathy. Skin: General: Skin is warm. Neurological: General: No focal deficit present. Mental Status: She is alert and oriented to person, place, and time. Cranial Nerves: No cranial nerve deficit. Sensory: No sensory deficit. Motor: Motor function is intact. No weakness. Gait: Gait normal. Psychiatric: Mood and Affect: Mood normal. Behavior: Behavior normal. Assessment/Plan Diagnoses and all orders for this visit: Acute nonintractable headache, unspecified headache type Comments: -PE reassuring without acute neurological findings -Trial abortive medication and NSAID -Advised increase fluids, maintaining headache diary -headache red flags discussed: report to ED immediately if headache characteristics intensify within 5 mins of onset, if associated with intense nausea and vomiting or confusion -follow-up with PCP or return sooner if no improvement Orders: - SUMAtriptan (Imitrex) 25 MG tablet; Take 1 tablet (25 mg) by mouth 1 (one) time if needed for migraine for up to 9 doses. May repeat dose once in 2 hours if no relief. Do not exceed 2 doses in 24 hours. Take with naproxen - naproxen (Naprosyn) 500 MG tablet; Take 1 tablet (500 mg) by mouth 2 times daily. Use with sumatriptan. Take with food documented in this encounter Plan of Treatment Upcoming Encounters Date Type Department Care Team (Late st Contact Info) Description 12/06/2024 9:00 AM EDT Office Visit [facility] [address] [place] [phone] Timbo Gill MD 230 [place] [address] 12/19/2024 1:00 PM EDT Office Visit [facility] [address] [place] [phone] Jossy Michele MD 230 [place] [address] documented as of this encounter Visit Diagnoses Diagnosis Acute nonintractable headache, unspecified headache type- Primary documented in this encounter Additional Health Concerns Assessment Noted Time PHQ-9 Depression Total Score: 0 08/06/19 25 1:53 PM EST documented as of this encounter Care Teams Upper Caser Relationship Specialty Start Date End Date Jossy Michele MD [address] [place] [address] PCP - General Family Medicine 04/04/18 documented as of this encounter
--- OUTSIDE RECORDS SUMMARY | 2024-10-25 13:03 | XMS_ITS | Encounter Summary ---
Author Organization [employer] Address 75 [facility] 7t [place] [address] Care Team Providers Care Filament Welder Name Role Phone Jossy Michele MD Primary Care Provide r Encounter Details Date Type Department Care Team (Late st Contact Info) Description 10/25/2024 10:45 AM EDT Office Visit [facility] 230 [place], [place] [phone] Timbo Gill MD [address] [place], [place] [phone] Psoriasis vulgaris (Primary Dx) Social History Tobacco Use Types [...] Sign Reading Time Taken Comments Blood Pressure 110/73 10/25/2024 10:48 AM EDT Pulse 75 10/25/2024 10:48 AM EDT Temperature 36.1 ??C (97 ??F) 10/25/2024 10:48 AM EDT Respiratory Rate 17 10/25/2024 10:48 AM EDT Oxygen Saturation - - Inhaled Oxygen Concentration - - Weight 69.4 kg (153 lb) 10/25/2024 10:48 AM EDT Height 154.9 cm (5' 1 ) 10/25/2024 10:48 AM EDT Body Mass Index 28.91 10/25/2024 10:48 AM EDT documented in this encounter Progress Notes * Timbo Gill MD - 10/25/2024 10:45 AM EDT Subjective Patient ID: Caroline Almanza is a 39 y.o. female who presents for No chief complaint on file.. HPI 39 yr old woman with hx of psoriasis that has been treated with Otezla however could not tolerate GI upset. She has been applying topical tx with partial relief. She has her scalp and back as well nails affected. Review of Systems Constitutional: Negative for diaphoresis, fatigue and fever. HENT: Negative for ear discharge, ear pain, facial swelling and hearing loss. Respiratory: Negative for cough, choking, chest tightness and shortness of breath. Cardiovascular: Negative for chest pain and leg swelling. Gastrointestinal: Negative for abdominal distention, abdominal pain and anal bleeding. Endocrine: Negative for cold intolerance and heat intolerance. Genitourinary: Negative for enuresis, flank pain and frequency. Musculoskeletal: Negative for arthralgias, back pain and gait problem. Skin: Positive for rash. Neurological: Negative for dizziness, facial asymmetry and headaches. Psychiatric/Behavioral: Negative for agitation, behavioral problems and confusion. Objective Physical Exam Constitutional: Appearance: Normal appearance. HENT: Head: Normocephalic and atraumatic. Nose: Nose normal. Eyes: Pupils: Pupils are equal, round, and reactive to light. Pulmonary: Effort: Pulmonary effort is normal. Musculoskeletal: General: Normal range of motion. Cervical back: Normal range of motion. Skin: Comments: Erythematous small scaly plaques on back and scalp Nails are polished , could not be examined today. Neurological: General: No focal deficit present. Mental Status: She is alert. Assessment/Plan Diagnoses and all orders for this visit: Psoriasis vulgaris Unstable Could not tolerate Otezla due to GI upset Affecting nails (not examined today due to nail swedish) Limited response to topicals Will start Methotrexate and folic acid as below Lab work ordered RTC in 6-8 weeks - CBC auto differential - Comprehensive Metabolic Panel - Hepatitis A,B,C Profile - QuantiFERON TB Gold - methotrexate 2.5 MG tablet; Take 4 tablets (10 mg total) by mouth 1 (one) time per week. Follow directions carefully, and ask to explain any part you do not understand. Take exactly as directed. - folic acid (Folvite) 1 MG tablet; Take 1 tablet (1 mg) by mouth Once per day. documented in this encounter Plan of Treatment Upcoming Encounters Date Type Department Care Team (Late st Contact Info) Description 12/06/2024 9:00 AM EDT Office Visit [facility] [address] [place] [phone] Timbo Gill MD [address] [place] [phone] 12/19/2024 1:00 PM EDT Office Visit [facility] 230 [place] [address] Jossy Michele MD [address] [place] [address] Scheduled Orders Name Type Priority Associated Diagnoses Orde r Schedule CBC auto differential Lab Routine Psoriasis vulgaris Ordered: 10/25/2024 Comprehensive Metabolic Panel Lab Routine Psoriasis vulgaris Ordered: 10/25/2024 Hepatitis A,B,C Profile Lab Routine Psoriasis vulgaris Ordered: 10/25/2024 QuantiFERON TB Gold Lab Routine Psoriasis vulgaris Ordered: 10/25/2024 documented as of this encounter Visit Diagnoses Diagnosis Psoriasis vulgaris- Primary Other psoriasis documented in this encounter Additional Health Concerns Assessment Noted Time PHQ-9 Depression Total Score: 0 08/06/19 25 1:53 PM EST documented as of this encounter Care Teams Filament Welder Relationship Specialty Start Date End Date Jossy Michele MD [address] [place] [address] PCP - General Family Medicine 04/04/18 documented as of this encounter
--- OUTSIDE RECORDS SUMMARY | 2024-10-25 13:03 | XMS_ITS | Encounter Summary ---
Author Organization [employer] Address 75 [facility] 7t [place] [address] Care Team Providers Care Cloth Doubling Machine Operator Name Role Phone Jossy Michele MD Primary Care Provide r Reason for Visit * Reason Comments Care Coordination CM/CHW outreach Encounter Details Date Type Department Care Team (Latest Contact Info) Description 10/24/2024 Patient Outreach [facility] 230 [place], [place] [phone] Jossy Michele MD [address] [place] [address] Care Coordination (CM/CHW outreach) Social History Tobacco Use Types Packs/Day Years [...] Progress Notes * Adriana Heller - 10/24/2024 12:13 PM EDT CHW Adriana Heller, placed outbound call to patient in regards to help with SDOH services and to introduce Adult Complex Care Program CHW LVM introducing herself from [facility] CM Department with CHW's name, department and direct contact number requesting call back. Will re-attempt to contact within 5 days. and address not confirmed documented in this encounter Plan of Treatment Upcoming Encounters Date Type Department Care Team (Late st Contact Info) Description 12/06/2024 9:00 AM EDT Office Visit [facility] [address] [place] [phone] IzzyRamTimbo garland MD [address] [place] [phone] 12/19/2024 1:00 PM EDT Office Visit [facility] [address] [place] [address] [phone] Jossy Michele MD [address] [place] [address] documented as of this encounter Visit Diagnoses Not on filedocumented in this encounter Additional Health Concerns Assessment Noted Time PHQ-9 Depression Total Score: 0 08/06/19 25 1:53 PM EST documented as of this encounter Care Teams Cloth Doubling Machine Operator Relationship Specialty Start Date End Date Jossy Michele MD 230 [place] [address] PCP - General Family Medicine 04/04/18 documented as of this encounter
--- OUTSIDE RECORDS SUMMARY | 2024-10-25 13:03 | XMS_ITS | Clinical Summary ---
Author Organization [employer] Address [address] [facility] 7t [place] [address] Care Team Providers Care Loan Secretary Name Role Phone Jossy Michele MD Primary Care Provide r Allergies Active Allergy Reactions Criticality Noted Date Comments Flavoring Agent (Non-Screening) 06/05/2023 Corylus 01/15/2018 Pollen Extract 04/18/2023 Other reaction(s): seasonal Shellfish-Derived Products Swelling 2 Medications * This document contains information received from the source organization and may not represent a complete record from that organization. fluticasone furoate (Arnuity Ellipta) 200 MCG/ACT inhalerIndications :Sore throat,Subacute cough,Congestion of nasal sinus,Seasonal allergies Inhale 1 puff Once per day. Rinse mouth with water after use to reduce aftertaste and incidence of candidiasis. Do not swallow. 1 each 11/14/19 24 025 Active Cholecalciferol 50 MCG (2000 UT) tablet dispersible Take 50 mcg by mouth Once per day. 30 tablet 11 11/15/19 24 025 Active hydrOXYzine pamoate (Vistaril) 25 MG capsuleIndications :Anxiety with depression Take 1 capsule (25 mg) by mouth every 8 (eight) hours if needed for itching. 30 capsule 2 01/02/20 24 Active fluticasone (Flonase) 50 MCG/ACT nasal sprayIndications:S ore throat,Subacute cough,Congestion of nasal sinus,Seasonal allergies SPRAY 2 SPRAYS INTO EACH NOSTRIL EVERY DAY 48 mL 02/09/20 24 Active cetirizine (ZyrTEC) 10 MG tabletIndications: Sore throat,Subacute cough,Congestion of nasal sinus,Seasonal allergies TAKE 1 TABLET BY MOUTH EVERY DAY 90 tablet 02/09/20 24 Active Fluocinolone Acetonide Scalp ([place]-Smoothe/FS Scalp) 0.01 % oilIndications:Pso riasis Apply on scalp twice weekly at night and cover with scarf. 118.28 mL 3 03/01/20 24 Active Clobetasol Propionate 0.05 % shampooIndications :Psoriasis Use to wash hair daily 118 mL 03/01/20 24 Active apremilast (Otezla) 30 MG tabletIndications: Psoriasis Take 1 tablet (30 mg) by mouth [...] EVERY DAY 90 tablet 08/29/19 25 Active SUMAtriptan (Imitrex) 25 MG tabletIndications: Acute nonintractable headache, unspecified headache type Take 1 tablet (25 mg) by mouth 1 (one) time if needed for migraine for up to 9 doses. May repeat dose once in 2 hours if no relief. Do not exceed 2 doses in 24 hours. Take with naproxen 9 tablet 10/22/19 25 Active naproxen (Naprosyn) 500 MG tabletIndications: Acute nonintractable headache, unspecified headache type Take 1 tablet (500 mg) by mouth 2 times daily. Use with sumatriptan. Take with food 60 tablet 10/22/19 25 025 Active methotrexate 2.5 MG tabletIndications: Psoriasis vulgaris Take 4 tablets (10 mg total) by mouth 1 (one) time per week. Follow directions carefully, and ask to explain any part you do not understand. Take exactly as directed. 16 tablet 10/26/19 25 025 Active folic acid (Folvite) 1 MG tabletIndications: Psoriasis vulgaris Take 1 tablet (1 mg) by mouth Once per day. 30 tablet 11 10/26/19 25 026 Active metroNIDAZOLE (Metrogel) 0.75 % vaginal gel Insert 1 Application. into the vagina at bedtime for 5 doses. 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 Seborrheic dermatitis 07/19/2023 07/19/2023 Thumb pain, right [...] Encounters Date Type Department Care Team Description 10/25/2024 10:45 AM EDT Office Visit [facility] [address] [place] [address] Timbo Gill MD Psoriasis vulgaris (Primary Dx) 10/25/2024 Travel 10/24/2024 Patient Outreach [facility] [address] [place] [address] Jossy Michele MD Care Coordination (CM/CHW outreach) 10/24/2024 Patient Outreach [facility] [address] [place] [phone] Jossy Michele MD Care Coordination (CHW chart review) 10/24/2024 Patient Outreach [address] [address] Jossy Michele MD Care Coordination ([facility]- chart review) 10/24/2024 Patient Outreach [facility] [address] [place] [phone] Jossy Michele MD 10/21/2024 5:40 PM EDT Office Visit [facility] [address] [place] [address] Kailyn Barrera NP Acute nonintractable headache, unspecified headache type (Primary Dx) 10/21/2024 Telephone [facility] [address] [place] [phone] Jossy Michele MD Nurse Triage 10/04/2024 Population Health Risk Score [facility] (C3) Department [address] [place] [phone] Provider, Population Health Generic 09/25/2024 Orders Only [facility] [address] [place] [phone] Vilma Nice CNM 09/24/2024 3:45 PM EST Office Visit [address] [address] Vilma Nice CNM Vaginal dryness (Primary Dx); Hot flashes; VIVI I (cervical intraepithelial neoplasia I) 09/24/2024 Travel 09/10/2024 Travel 09/05/2024 Orders Only [facility] [address] [place] [phone] Jossy Michele MD Vaginal dryness (Primary Dx); Alopecia 08/29/2024 Refill [facility] [address] [place] [address] Jossy Michele MD 08/13/2024 Refill [facility] [address] [place] [address] Jossy Michele MD 08/09/2024 Telephone [facility] [address] [place] [address] Fito Urbano [place] X-RAY RESULTS 08/06/2024 2:00 PM EST Office Visit [facility] [address] [place] [address] Jossy Michele MD Chronic right hip pain (Primary Dx); Encounter for preventive care; Psoriasis; Encounter for immunization 08/06/2024 Travel from Last 3 Months Immunizations Name Administration Dates Next Due Hep B, Adolescent or Pediatric 03/08/2005,1996,02/12/1997 Influenza injectable quadriv alent IIV4 with preservative 07/08/2015 Pfizer Covid-19 Vaccine 12+ 11/26/2020, Pneumococcal Polysaccharide PPSV23 11/28/2014 TD (adult), 2 [...] 17 10/25/2024 10:48 AM EDT Oxygen Saturation 100% 10/21/2024 5:24 PM EDT Inhaled Oxygen Concentration - - Weight 69.4 kg (153 lb) 10/25/2024 10:48 AM EDT Height 154.9 cm (5' 1 ) 10/25/2024 10:48 AM EDT Body Mass Index 28.91 10/25/2024 10:48 AM EDT Plan of Treatment Upcoming Encounters Date Type Department Care Team (Late st Contact Info) Description 12/06/2024 9:00 AM EDT Office Visit [facility] [address] [place] [phone] Timbo Gill MD [address] [place] [phone] 12/19/2024 1:00 PM EDT Office Visit [facility] [address] [place] [phone] Jossy Michele MD [address] [place] [address] [place] [address] Health Maintenance Due Date Last Done Comments Pneumococcal Vaccine: Pediatrics (0 to 5 Years) and At-Risk Patients (6 to 49) Years) (2 of 2 - PCV) 11/29/2015 11/28/2014 COVID-19 Vaccine ( season) 2024 07/01/2021, 11/26/2020, 11/05/2020 Influenza Vaccine (#1) 2024 07/08/2015 Alcohol/Substance Use Screening 08/06/2025 08/06/2024 Depression Screening 08/06/2025 08/06/2024, 08/06/19 SDOH Screening 08/06/2025 08/06/2024 Family Planning (PISQ) 09/24/2025 09/24/2024 HPV/Cotest 09/25/2025 09/25/2024 Pap Smear 09/25/2025 09/24/2024 Tobacco Screening 10/25/2025 10/25/2024 DTaP/Tdap/Td Vaccines (3 - Td or Tdap) 08/07/2034 08/07/2024, 02/23/2012, 03/08/2005 Zoster Vaccines (1 of 2) 2035 RSV Patients and Patients Aged 60 years or older (1 - 1-dose 75+ series) 2060 Hepatitis B Vaccines Completed 03/08/2005, 03/25/1997, 02/12/1997 HIV Screening Completed 06/05/2023, 01/26/2023 Hepatitis C Screening Completed 06/05/2023 , 01/26/2023, 01/26/2023, Additional history exists HIB Vaccines Aged Out No longer eligi [...] Procedure Name Priority Date/Time Associated Diagnosis Comments HPV DNA, LOW/HIGH RISK Routine 09/25/2024 12:00 AM EST ESTRADIOL Routine 09/24/2024 4:33 PM EST Hot flashes FSH Routine 09/24/2024 4:33 PM EST Hot flashes BACTERIAL VAGINOSIS PANEL Routine 09/24/2024 4:33 PM EST Vaginal dryness PAP SMEAR Routine 09/24/2024 4:32 PM EST VIVI I (cervical intraepithelial neoplasia I) XR HIP 2 OR 3 VIEWS RIGHT Routine 08/06/2024 3:33 PM EST Chronic right hip pain HEPATITIS C AB W/REFL TO HCV RNA, QN, PCR Routine 06/05/2023 3:36 PM EST Encounter for preventive care HIV 1/2 ANTIGEN/ANTIBODY, FOURTH GENERATION W/RFL Routine 06/05/2023 3:36 PM EST Encounter for preventive care from Last 3 Months or Most Recently Relevant to Health Maintenance Results * (ABNORMAL) HPV DNA, Low/High Risk (09/25/2024 12:00 AM EST) HPV High Risk Positive(A) Negative [facility] HPV Genotype 16 Negative Negative [facility] HPV Genotype 18 Negative Negative [facility] Comment:HPV testing performe d at [facility] (CLIA#[id number]), [address] [place] [address].Testing for HPV was performed using the [employer]system. The presence of HPV in the female genital tract isassociated with a number of diseases, including cervicalcarcinoma. The HPV DNA high risk pool tests for HPV 31, 33,35, 39, 45, 51, 52, 56, 58, 59, 66 and 68. The testing forHPV 16 and 18 genotypes has also been performed. A positiveresult indicates detection of nucleic acid sequences fromone or more subtypes, whereas a negative result indicatessuch sequences were not detected. 09/25/2024 09/26/2024 8:5 4 AM EST Vilma Nice [facility] BLOOD ORDERABLES Aimee l Result Performing Organization Address City/[facility]/ZIP Co de Phone Number [facility] [address] [place] [phone] * (ABNORMAL) Bacterial Vaginosis Panel (09/24/2024 4:33 PM EST) [facility] TRICHOMONAS VAGINALIS DETECTION BY PCR NOT DETECTED Not Detect [facility] BACTERIAL VAGINOSIS DETECTION BY PCR POSITIVE(A) Negative [facility] Comment:The BV organism targ ets of the Xpert Xpress MVP test can becommensal in women; Xpert Xpress MVP positive results forbacterial vaginosis should be considered in conjunction withother clinical and patient information to determine thedisease status. Organisms that are not detected by the XpertXpress MVP test have also been reported to be associatedwith BV and aerobic vaginitis.The Xpert Xpress MVP test performance has not been evaluatedin patients under the age of 14. [employer] DETECTION BY PCR NOT DETECTED Not Detect [facility] Temi glab krusei PCR NOT DETECTED Not Detect [facility] Swab Vaginal structure / Unknown 09/24/2024 4:33 PM EST 09/25/2024 11:50 AM EST Vilma Nice [facility] MICROBIOLOGY - GENERA L ORDERABLES Final Result Performing Organization Address [facility]/ZIP Co de Phone Number [facility] [address] [place] [phone] * Estradiol (09/24/2024 4:33 PM EST) Pathologist [facility] Estradiol Ultra Sensitive 166 pg/mL [facility] Comment:Female Reference Ran ges for Estradiol, Ultrasensitive (pg/mL): Follicular Phase: 39-375 Luteal Phase: 48-440 Postmenopausal Phase: < or = 10This test was developed and its analytical performancecharacteristics have been determined by [employer].It has not been cleared or approved by FDA. This assay hasbeen validated pursuant to the CLIA regulations and is usedfor clinical purposes.THIS TEST WAS PERFORMED AT:[employer] [id number] [place] [address]RBTMRGIN MARQUEZ MD,PHD,LAZARUS Blood Venous blood specimen / Unknown 09/24/2024 4:33 PM EST 09/24/2024 6:14 PM EST Vilma Nice [facility] BLOOD ORDERABLES Aimee l Result Performing Organization Address [facility]/ZIP Co de Phone Number [facility] [address] [place] [phone] * FSH (09/24/2024 4:33 PM EST) Follicle Stimulating Hormone 4.5 mIU/mL [facility] Comment:Reference Range Foll icular Phase 2.5-10.2 Mid-cycle Peak 3.1-17.7 Luteal Phase 1.5- 9.1 Postmenopausal 23.0-116.3THIS TEST WAS PERFORMED AT:[employer] [address] [id number] DIXON MD Blood Venous blood specimen / Unknown 09/24/2024 4:33 PM EST 09/24/2024 6:14 PM EST [facility] BLOOD ORDERABLES Aimee l Result Performing Organization Address [facility]/ZIP Co de Phone Number [facility] [address] [place] [phone] * Pap Smear (09/24/2024 4:32 PM EST) Swab Vaginal structure / Unknown 09/24/2024 4:32 PM EST 09/26/2024 6:00 AM EST Narrative [facility] - 10/01/2024 4:42 PM EDT ----- ------- Name: Cami,Caroline ?Age/Sex: 39/F ? : 1985 Unit#: [id number] ?? Attend : VILMA NICE CNM ?Re09/24/24 ?Status: DEP REF ? Location: HO.CLNP ? Disch: ? ----- ------- SPEC : [id number] ? RECD: 09/26/24-599 ? STATUS: ??SOUT ? REQ NUM: [id number] ? SNOW: 09/24/24-1631 ? SUBM DR: VILMA NICE CNM ? ENTERED: ??09/26/24-39 ?SP TYPE: Pap Smr ?OTHR : ? ORDERED: ??Pap Smear ? Interpretation ?? Satisfactory for evaluation. ?? Negative for intraepithelial lesion or malignancy. ?? Coccobacilli consistent with shift in vaginal hanh. ? HPV High Risk: ??Positive ? HPV Genotyping 16: ??Negative ?? HPV Genotyping 18: ??Negative ?Clinical Information LMP: Hysterectomy Previous PAP test: 2016, hx VIVI 1 ? Material Received ?? Vagina ----- ------- Signed (signature on file) PATY Healy ([facility]) 10/01/24 4448 ? ----- ------- ? END OF REPORT ? us Vilma Mauricio CNM LAB CYTOLOGY ORDERABLES F inal Result [facility] [address] [place] [phone] * XR Hip 2 or 3 Views Right (08/06/2024 3:33 PM EST) Anatomical Region Laterality Modality Lower Extremities, Hip Right Radiograp hic Imaging 08/06/2024 3:33 PM EST Narrative 08/06/2024 3:54 PM EST ?[facility] ?[address] ?[place] [address] ?XRay Report ? Signed ? Patient: Hodder,Caroline ?MR#: [id number] ?? 51 ? : 1985 ?Acct:[id number] ? Age/Sex: 39 / F ?ADM Date: 08/06/24 ? Loc: HO.HHCX ? Attending Dr: Jossy Lares MD ? Ordering Physician: Jossy Michele MD ?? Date of Service: 08/06/24 ?? Procedure(s): XR hip RT min 2V ?? Accession Number(s): [id number] ? cc: Jossy Michele MD ? EXAMINATION: [...] signed by Clif Ramey MD in OV> ?08/06/25 1551 ? DD/ 1533 ? TD/TT: 08/06/25 1542 ? Single Ending Machine Operator: ? Procedure Note Donotuseinterpreter, Image - 08/06/2024 [facility] [address] [place] [address] XRay Report Signed Patient: Caroline Del AngelMR#: [id number] 51 : 1985Acct:[id number] Age/Sex: 39 / FADM Date: 08/06/24 Loc: HO.HHCX Attending Dr: Jossy Lares MD Ordering Physician: Jossy Michele MD Date of Service: 08/06/24 Procedure(s): XR hip RT min 2V Accession Number(s): [id number] cc: Jossy Michele MD EXAMINATION: XR HIP, [...] 08/06/24 1551 DD/ 1533 TD/TT: 08/06/24 1542 Single Ending Machine Operator: us Jossy Lares MD IMG XR PROCEDURES Fin al Result * Hepatitis C Antibody with Reflex to HCV, RNA, Quantitative, Real-Time PCR (06/05/2023 3:36 PM EST) Hepatitis C Antibody Nonreactive Nonreactive [facility] Comment:Antibodies to HCV no t detected; does not exclude early acuteHCV infection. Blood Venous blood specimen / Unknown 06/05/2023 3:36 PM EST 06/05/2023 5:26 PM EST us Jossy Lares MD LAB BLOOD ORDERABLES Final Result Performing Organization Address City/[facility]/ZIP Co de Phone Number [facility] [address] [place] [phone] * HIV-1/2 Antigen and Antibodies, Fourth Generation, with Reflexes (06/05/2023 3:36 PM EST) HIV AB/AG Nonreactive Nonreactive [facility] Comment:HIV-1 p24 Ag and/or HIV-1/HIV-2 Ab not detected.A test result that is nonreactive does not exclude thepossibility of exposure to or infection with HIV-1 and/orHIV-2. Nonreactive results in this assay for individualswith prior exposure to HIV-1 and/or HIV-2 may be due toantigen and antibody levels that are below the limit ofdetection of this assay.The [employer] HIV Ag/Ab Combo assay result andsupplemental assay results should be interpreted inconjunction with the patient's clinical presentation,history and other laboratory results. If the results areinconsistent with clinical evidence, additional testing issuggested to confirm the result. Blood Venous blood specimen / Unknown 06/05/2023 3:36 PM EST 06/05/2023 5:26 PM EST us Jossy Lares MD LAB BLOOD ORDERABLES Final Result Performing Organization Address [facility]/ZIP Co de Phone Number [facility] [address] [place] [phone] from Last 3 Months or Most Recently Relevant to Health Maintenance Insurance [facility] STAND[facility] Care Teams Loan Secretary Relationship Specialty Start Date End Date Jossy Michele MD [address] [place] [phone] PCP - General Family Medicine 04/04/18
--- OUTSIDE RECORDS SUMMARY | 2024-10-25 13:03 | XMS_ITS ---
Author Organization [employer] Address [address] [facility] 7t [place] [address] Care Team Providers Care Stores Clerk Name Role Phone Jossy Michele MD Primary Care Provide r CM Complex Status:Outreach In Progress (Enrolling) Start date:10/24/2024 Enrollment reason:ADT Feed Overview ED- Pt went to [facility] ED on 10/23/24. Case Team Name Relationship Phone Jake Sanchez RN Registered Nurse(Responsible S taff) Continued Care and Services Coordination
--- OUTSIDE RECORDS SUMMARY | 2024-10-25 13:03 | XMS_ITS | Encounter Summary ---
Author Organization [employer] Address [address] [facility] 7t [place] [address] Care Team Providers Care Technical Training Instructor Name Role Phone Jossy Michele MD Primary Care Provide r Encounter Details Date Type Department Care Team (Latest Contact Info) Description 10/25/2024 Travel Social History Tobacco Use Types Packs/Day Years [...] Description 12/06/2024 9:00 AM EDT Office Visit [facility] [address] [place] [phone] Timbo Gill MD [address] [place] [phone] 12/19/2024 1:00 PM EDT Office Visit [facility] [address] [place] [phone] Jossy Michele MD [address] [place] [phone] documented as of this encounter Visit Diagnoses Not on filedocumented in this encounter Additional Health Concerns Assessment Noted Time PHQ-9 Depression Total Score: 0 08/06/19 25 1:53 PM EST documented as of this encounter Care Teams Technical Training Instructor Relationship Specialty Start Date End Date Jossy Michele MD [address] [place] [phone] PCP - General Family Medicine 04/04/18 documented as of this encounter
[2024-10-25 13:28] LABS: MANUAL DIFF FLAG NO
[2024-10-25 13:36] LABS: Basophils Absolute Auto 0.1 X10*3/uL (0.0-0.2); Eosinophils Absolute Auto 0.4 X10*3/uL (0.0-0.4); Eosinophils Percent Auto 5.1 % (0-4); Hematocrit 41.6 % (37.0-47.0); Hemoglobin 14.1 g/dl (12.0-16.0); Imm Gran Abs Auto 0.03 X10*3/uL (0.00-0.03); Imm Gran Pct Auto 0.4 % (0.0-0.4); Lymphocytes Absolute Auto 2.1 X10*3/uL (1.2-4.9); Lymphocytes Percent Auto 29.5 % (20-40); Mean Corpuscular HGB Conc 33.9 g/dl (31.0-35.0); Mean Corpuscular Hemoglobin 29.8 pg (27.0-33.0); Mean Corpuscular Volume 87.9 fL (80.0-98.0); Mean Platelet Volume 10.7 fL (9.4-12.3); Monocytes Absolute Auto 0.5 X10*3/uL (0.1-1.2); Neutrophils Absolute Auto 4.1 x10*3/uL (2.0-8.3); Platelet Count 353 X10*3/uL (160-400); Red Blood Count 4.73 X10*6/uL (4.20-5.50); Red Cell Distribution Width 13.3 % (11.0-16.0); White Blood Count 7.3 X10*3/uL (4.8-10.8)
[2024-10-25 14:04] LABS: Alanine Aminotransferase 18 U/L (0-31); Albumin Level 4.6 g/dL (3.5-5.0); Alkaline Phosphatase 85 U/L (39-117); Anion Gap 11 (12-20); Aspartate Amino Transferase 22 U/L (5-31); Bilirubin Total 0.4 mg/dL (0.0-1.0); Blood Urea Nitrogen 10 mg/dL (9-16); Calcium 9.6 mg/dL (8.4-10.2); Carbon Dioxide 27 mmol/L (22-29); Chloride 106 mmol/L (96-108); Estimated Glomerular Filt Rate > 60; Glucose Random 94 mg/dL (60-115); Sodium 140 mmol/L (135-145); Total Protein 7.4 g/dL (6.5-8.0)
[2024-10-26 07:15] LABS: HBS Num1 0.37 mIU/mL (0-7.99); HBsAGNum1 0.37 S/CO (0.00-0.99); Hepatitis A Antibody IgM 0.15 Index (0-0.79); Hepatitis B Core Antibody Nonreactive (Nonreactive); Hepatitis B Surface Antigen Negative (Negative); ~HepC Num1 0.15 S/CO (0.00-0.79); ~Hepatitis A Antibody IgM Nonreactive (Nonreactive); ~Hepatitis B Surface Antibody NONREACTIVE (Nonreactive); ~Hepatitis C Antibody Nonreactive (Nonreactive)
== END 2024-10-25 11:12 | disposition home or self-care (01) ==
LOC: HO.HHCL 11:11
PROVIDERS: Visit Provider Internal Medicine
DX: L40.0 Psoriasis vulgaris (principal)
CPT/HCPCS: 36415; 80053; 85025; 86704; 86706; 86709; 86803; 87340

== ENCOUNTER 2024-12-06 09:29 | Outpatient (REF) | payer MEDICAID, SELFPAY ==
--- OUTSIDE RECORDS SUMMARY | 2024-12-06 09:40 | XMS_ITS ---
Author Organization [employer] Address [address] [facility] 7t [place] [address] Care Team Providers Care Cd Reactor Operator Name Role Phone Jossy Michele MD Primary Care Provide r CM Complex Status:Outreach In Progress (Enrolling) Start date:10/24/2024 Enrollment reason:ADT Feed Overview ED- Pt went to [facility] ED on 10/23/24. Case Team Name Relationship Phone Jake Sanchez RN(Responsible Staff) Registered Nurse [phone] Continued Care and Services Coordination
--- OUTSIDE RECORDS SUMMARY | 2024-12-06 09:40 | XMS_ITS | Clinical Summary ---
Author Organization [employer] Address [address] [facility] 7t [place] [address] Care Team Providers Care Shovel Operator Name Role Phone Jossy Michele MD Primary Care Provide r Allergies Active Allergy Reactions Criticality Noted Date Comments Flavoring Agent (Non-Screening) 06/05/2023 Corylus 01/15/2018 Pollen Extract 04/18/2023 Other reaction(s): seasonal Shellfish-Derived Products Swelling 2 Medications * This document contains information received from the source organization and may not represent a complete record from that organization. fluticasone furoate (Arnuity Ellipta) 200 MCG/ACT inhalerIndication s:Sore throat,Subacute cough,Congestion of nasal sinus,Seasonal allergies Inhale 1 puff Once per day. Rinse mouth with water after use to reduce aftertaste and incidence of candidiasis. Do not swallow. 1 each Active hydrOXYzine pamoate (Vistaril) 25 MG capsuleIndication s:Anxiety with depression Take 1 capsule (25 mg) by mouth every 8 (eight) hours if needed for itching. 30 capsule 2 024 Active fluticasone (Flonase) 50 MCG/ACT nasal sprayIndications: Sore throat,Subacute cough,Congestion of nasal sinus,Seasonal allergies SPRAY 2 SPRAYS INTO EACH NOSTRIL EVERY DAY 48 mL Active cetirizine (ZyrTEC) 10 MG tabletIndications :Sore throat,Subacute cough,Congestion of nasal sinus,Seasonal allergies TAKE 1 TABLET BY MOUTH EVERY DAY 90 tablet Active apremilast (Otezla) 30 MG tabletIndications :Psoriasis Take 1 tablet (30 mg) by mouth 2 times daily. Do not crush, chew, or split tablets. 60 tablet 11 024 Active albuterol 108 (90 Base) MCG/ACT inhaler Inhale 2 puffs every 4 (four) hours if needed for wheezing or shortness of breath. 18 g 3 025 2025 Active magnesium oxide (Mag-Ox) 400 (240 Mg) MG tablet TAKE 1 TABLET BY MOUTH EVERY DAY 90 tablet 025 Active SUMAtriptan (Imitrex) 25 MG tabletIndications :Acute nonintractable headache, unspecified headache type Take 1 tablet (25 mg) by mouth 1 (one) time if needed for migraine for up to 9 doses. May repeat dose once in 2 hours if no relief. Do not exceed 2 doses in 24 hours. Take with naproxen 9 tablet 025 Active methotrexate 2.5 MG tabletIndications :Psoriasis vulgaris Take 4 tablets once weekly 48 tablet 025 Active folic acid (Folvite) 1 MG tabletIndications :Psoriasis vulgaris Take 1 tablet (1 mg) by mouth Once per day. 90 tablet 1 025 Active betamethasone, augmented, (Diprolene) 0.05 % ointmentIndicatio ns:Psoriasis vulgaris Apply topically 2 times daily. 50 g 025 Active Fluocinolone Acetonide Scalp ([place]-Smoothe/FS Scalp) 0.01 % oilIndications:Ps oriasis vulgaris Apply on scalp twice weekly at night and cover with scarf. 118.28 mL 3 025 Active Cholecalciferol 50 MCG (2000 UT) tablet dispersible Take 50 mcg by mouth Once per day. 30 tablet 11 024 2024 Fluocinolone Acetonide Scalp ([place]-Smoothe/FS Scalp) 0.01 % oilIndications:Ps oriasis Apply on scalp twice weekly at night and cover with scarf. 118.28 mL 3 024 2024 Discontinued(R eorder (will not trigger notification to Pharmacy)) Clobetasol Propionate 0.05 % shampooIndication s:Psoriasis Use to wash hair daily 118 mL 024 2024 Discontinued naproxen (Naprosyn) 500 MG tabletIndications :Acute nonintractable headache, unspecified headache type Take 1 tablet (500 mg) by mouth 2 times daily. Use with sumatriptan. Take with food 60 tablet 025 2024 methotrexate 2.5 MG tabletIndications :Psoriasis vulgaris Take 4 tablets (10 mg total) by mouth 1 (one) time per week. Follow directions carefully, and ask to explain any part you do not understand. Take exactly as directed. 16 tablet 025 2024 Discontinued folic acid (Folvite) 1 MG tabletIndications :Psoriasis vulgaris Take 1 tablet (1 mg) by mouth Once per day. 30 tablet 11 025 2024 Discontinued(R eorder (will not trigger notification to Pharmacy)) methotrexate 2.5 MG tabletIndications :Psoriasis vulgaris TAKE 4 TABLETS ONCE A WEEK 16 tablet 025 2024 Discontinued(R eorder (will not trigger notification to Pharmacy)) Active Problems Problem Noted Date Diagnosed Date [...] schedule for 12/04/2023 -advised to see her manufacturing technology professor as well -pt will to schedule apt [...] problem I advise to mention it to field marketing representative Seborrheic dermatitis 07/19/2023 07/19/2023 Thumb pain, right [...] Encounters Date Type Department Care Team Description 12/06/2024 9:00 AM EDT Office Visit [address] [phone] Timbo Gill MD Psoriasis vulgaris 12/06/2024 Travel 11/21/[address] [address] Timbo Gill MD Psoriasis vulgaris 11/19/2024 Patient Outreach [address] [address] Jossy Michele MD Care Management ([facility]- initial assessment/enrollment. Unable to leave v/m.) 11/18/2024 Patient Outreach [address] [address] Jossy Michele MD Care Coordination (CM/CHW appt reminder) 10/30/2024 Patient Outreach [address] [address] Jossy Michele MD Care Coordination (CM/CHW outreach) 10/29/2024 Patient Outreach [address] [address] Jossy Michele MD 10/25/2024 10:45 AM EDT Office Visit [address] [address] Timbo Gill MD Psoriasis vulgaris (Primary Dx) 10/25/2024 Travel 10/24/2024 Patient Outreach [address] [address] Jossy Michele MD Care Coordination (CM/CHW outreach) 10/24/2024 Patient Outreach [facility] [address] [place] [phone] Jossy Michele MD Care Coordination (CHW chart review) 10/24/2024 Patient Outreach [address] [address] Jossy Michele MD Care Coordination ([facility]- chart review) 10/24/2024 Patient Outreach [address] [address] Jossy Michele MD 10/21/2024 5:40 PM EDT Office Visit [facility] [address] [place] [phone] Kailyn Barrera NP Acute nonintractable headache, unspecified headache type (Primary Dx) 10/21/[address] [address] Jossy Michele MD Nurse Triage 10/04/2024 Population Health Risk Score [facility] (C3) Department [address] [place] [phone] Provider, Population Health Generic 09/25/2024 Orders Only [address] [address] Vilma Nice CNM 09/24/2024 3:45 PM EST Office Visit [address] [address] Vilma Nice CNM Vaginal dryness (Primary Dx); Hot flashes; VIVI I (cervical intraepithelial neoplasia I) 09/24/2024 Travel 09/10/2024 Travel from Last 3 Months Immunizations Immunization Administration Dates Next Due Hep B, Adolescent [...] want or need it 07/24 Comments No Intention Date Recorded No desire to become (finding) 0 09/24/2024 Sex and Gender Information Value Date Recorded Sex Assigned at Female 05/23/2022 10:14 AM EDT Legal Sex Female 10:14 AM EDT Gender Identity Female 05/23/2022 10:14 AM EDT Sexual Orientation Straight 05/23/2022 10 :14 AM EDT Last Filed Vital Signs Vital Sign Reading Time Taken Comments Blood Pressure 104/60 12/06/2024 8:58 AM EDT Pulse 60 12/06/2024 8:58 AM EDT Temperature 37.1 ??C (98.7 ??F) 12/06/2024 8:58 AM ED T Respiratory Rate 16 12/06/2024 8:58 AM EDT Oxygen Saturation 100% 10/21/2024 5:24 PM EDT Inhaled Oxygen Concentration - - Weight 67 kg (147 lb 12.8 oz) 12/06/2024 8:58 AM EDT Height 154.9 cm (5' 1 ) 10/25/2024 10:48 AM EDT Body Mass Index 27.93 10/25/2024 10:48 AM EDT Plan of Treatment Upcoming Encounters Date Type Department Care Team (Late st Contact Info) Description 12/19/2024 1:00 PM EDT Office Visit [facility] [address] [place], [place] [phone] Jossy Michele MD [address] [place], [place] [phone] Health Maintenance Due Date Last Done Comments [...] Completed 06/05/2023, 01/26/2023 Hepatitis C Screening Completed 10/25/2024 , 06/05/2023, 01/26/2023, Additional history exists HIB Vaccines Aged [...] age to complete this topic Meningococcal B Vaccine Aged Out No l onger eligible based on patient's age to complete [...] Procedure Name Priority Date/Time Associated Diagnosis Comments HEPATITIS PANEL, GENERAL Routine 10/25/2024 11:13 AM EDT Psoriasis vulgaris COMPREHENSIVE METABOLIC PANEL Routine 10/25/2024 11:13 AM EDT Psoriasis vulgaris CBC WITH AUTO DIFFERENTIAL Routine 10/25/2024 11:13 AM EDT Psoriasis vulgaris HPV DNA, LOW/HIGH RISK Routine 09/25/2024 12:00 AM EST ESTRADIOL Routine 09/24/2024 4:33 PM EST Hot flashes FSH Routine 09/24/2024 4:33 PM EST Hot flashes BACTERIAL VAGINOSIS PANEL Routine 09/24/2024 4:33 PM EST Vaginal dryness PAP SMEAR Routine 09/24/2024 4:32 PM EST VIVI I (cervical intraepithelial neoplasia I) HIV 1/2 ANTIGEN/ANTIBODY, FOURTH GENERATION W/RFL Routine 06/05/2023 3:36 PM EST Encounter for preventive care from Last 3 Months or Most Recently Relevant to Health Maintenance Results * Hepatitis A,B,C Profile (10/25/2024 11:13 AM EDT) Hepatitis A IgM Nonreactive Nonreactive [facility] Comment:IgM antibodies to COX V not detected; does not exclude earlyacute or recovered HAV infection. ~Hepatitis B Surface Antibody NONREACTIVE Nonreactive [facility] Comment:Nonreactive: < 8.00 mIU/mL Hepatitis B Core Antibody Nonreactive Nonreactive [facility] Hepatitis C Antibody Nonreactive Nonreactive [facility] Comment:Antibodies to HCV no t detected; does not exclude early acuteHCV infection. Hepatitis B Surface Ag Negative Negative [facility] Blood Venous blood specimen / Unknown 10/25/2024 11:13 AM EDT 10/25/2024 1:26 PM EDT us Timbo Gill MD LAB BLOOD ORDERABLES Final Re sult [facility] [address] [place] [phone] * (ABNORMAL) CBC auto differential (10/25/2024 11:13 AM EDT) White Blood Count 7.3 4.8 - 10.8 X10*3/uL [facility] Red Blood Count 4.73 4.20 - 5.50 X10*6/uL [facility] Hemoglobin 14.1 12.0 - 16.0 g/dl [facility] Hematocrit 41.6 37.0 - 47.0 % [facility] Mean Corpuscular Volume 87.9 80.0 - 98.0 fL [facility] Mean Corpuscular Hemoglobin 29.8 27.0 - 33.0 pg [facility] Mean Corpuscular HGB Conc 33.9 31.0 - 35.0 g/dl [facility] Red Cell Distribution Width 13.3 11.0 - 16.0 % [facility] Platelet Count 353 160 - 400 X10*3/uL [facility] Mean Platelet Volume 10.7 9.4 - 12.3 fL [facility] Neutrophils Percent Auto 57.0 45 - 73 % [facility] Imm Gran Pct Auto 0.4 0.0 - 0.4 % [facility] Lymphocytes Percent Auto 29.5 20 - 40 % [facility] Monocytes Percent Auto 7.0 2 - 11 % [facility] Eosinophils Percent Auto 5.1(H) 0 - 4 % [facility] Basophils Percent Auto 1.0 0 - 2 % [facility] NRBC Pct Auto 0.0 0.0 - 0.2 /100WBC [facility] Neutrophils Absolute Auto 4.1 2.0 - 8.3 x10*3/uL [facility] Imm Gran Abs Auto 0.03 0.00 - 0.03 X10*3/uL [facility] Lymphocytes Absolute Auto 2.1 1.2 - 4.9 X10*3/uL [facility] Monocytes Absolute Auto 0.5 0.1 - 1.2 X10*3/uL [facility] Eosinophils Absolute Auto 0.4 0.0 - 0.4 X10*3/uL [facility] Basophils Absolute Auto 0.1 0.0 - 0.2 X10*3/uL [facility] NRBC Abs Auto 0.000 0.0 - 0.012 X10*3/uL [facility] Blood Venous blood specimen / Unknown 10/25/2024 11:13 AM EDT 10/25/2024 1:26 PM EDT us Timbo Glil MD LAB BLOOD ORDERABLES Final Re sult [facility] [address] [place] [phone] [phone] * (ABNORMAL) Comprehensive Metabolic Panel (10/25/2024 11:13 AM EDT) Sodium 140 135 - 145 mmol/L [facility] Potassium 4.0 3.3 - 5.1 mmol/L [facility] Chloride 106 96 - 108 mmol/L [facility] Carbon Dioxide 27 22 - 29 mmol/L [facility] Anion Gap 11(L) 12 - 20 [facility] Urea Nitrogen (BUN) 10 9 - 16 mg/dL [facility] Creatinine, Serum 0.65 0.5 - 1.4 mg/dL [facility] Estimated Glomerular Filt Rate >60 [facility] Comment:Chronic Kidney Disea se: Estimated GFR < 60 mL/min/1.69k0Foixhh Kidney Disease: Estimated GFR < 15 mL/min/1.73m2 Glucose 94 60 - 115 mg/dL [facility] Calcium 9.6 8.4 - 10.2 mg/dL [facility] Bilirubin, Total 0.4 0.0 - 1.0 mg/dL [facility] Aspartate Amino Transferase 22 5 - 31 U/L [facility] Alanine Aminotransferase 18 0 - 31 U/L [facility] Total Protein 7.4 6.5 - 8.0 g/dL [facility] Albumin Level 4.6 3.5 - 5.0 g/dL [facility] Alkaline Phosphatase 85 39 - 117 U/L [facility] Blood Venous blood specimen / Unknown 10/25/2024 11:13 AM EDT 10/25/2024 1:26 PM EDT us Timbo Gill MD LAB BLOOD ORDERABLES Final Re sult [facility] [address] [place] [phone] * (ABNORMAL) HPV DNA, Low/High Risk (09/25/2024 12:00 AM EST) HPV High Risk Positive(A) Negative [facility] HPV Genotype 16 Negative Negative [facility] HPV Genotype 18 Negative Negative [facility] Comment:HPV testing performe d at [facility] (CLIA#[id number]), [address] [place] [phone].Testing for HPV was performed using the [employer] [place] 6800system. The presence of HPV in the female [...] detected. 09/25/2024 09/26/2024 8:5 4 AM EST us Vilma Nice [facility] LAB BLOOD ORDERABLES Aimee ramos Result [facility] [address] [place] [phone] * (ABNORMAL) Bacterial Vaginosis Panel (09/24/2024 4:33 PM EST) TRICHOMONAS VAGINALIS DETECTION BY PCR NOT DETECTED Not Detect [facility] BACTERIAL VAGINOSIS DETECTION BY PCR POSITIVE(A) Negative [facility] Comment:The BV organism targ ets [...] DETECTION BY PCR NOT DETECTED Not Detect [facility] Temi glab krusei PCR NOT DETECTED Not Detect [facility] Swab Vaginal structure / Unknown 09/24/2024 4:33 PM EST 09/25/2024 11:50 AM EST [facility] MICROBIOLOGY - GENERA L ORDERABLES Final Result Performing Organization Address [facility]/ZIP Co de Phone Number [facility] [address] [place] [phone] * Estradiol (09/24/2024 4:33 PM EST) Estradiol Ultra Sensitive 166 pg/mL [facility] Comment:Female Reference Ran ges for Estradiol, Ultrasensitive (pg/mL): Follicular Phase: 39-375 Luteal Phase: 48-440 Postmenopausal Phase: < or = 10This test was developed and its analytical performancecharacteristics have been determined by [employer].It has not been cleared or approved by FDA. This assay hasbeen validated pursuant to the CLIA regulations and is usedfor clinical purposes.THIS TEST WAS PERFORMED AT:[id number] [place] [address]ATKONGIN MARQUEZ MD,PHD,LAZARUS Blood Venous blood specimen / Unknown 09/24/2024 4:33 PM EST 09/24/2024 6:14 PM EST [facility] LAB BLOOD ORDERABLES Aimee l Result Performing Organization Address [facility] Co de Phone Number [facility] [address] [place] [phone] * FSH (09/24/2024 4:33 PM EST) Follicle Stimulating Hormone 4.5 mIU/mL [facility] Comment:Reference Range Foll icular Phase 2.5-10.2 Mid-cycle Peak 3.1-17.7 Luteal Phase 1.5- 9.1 Postmenopausal 23.0-116.3THIS TEST WAS PERFORMED AT:[employer] [address] [id number] DIXON MD Blood Venous blood specimen / Unknown 09/24/2024 4:33 PM EST 09/24/2024 6:14 PM EST us Vilma Nice CNM LAB BLOOD ORDERABLES Aimee ramos Result [facility] [address] [place] [phone] * Pap Smear (09/24/2024 4:32 PM EST) Swab Vaginal structure / Unknown 09/24/2024 4:32 PM EST 09/26/2024 6:00 AM EST Narrative [facility] - 10/01/2024 4:42 PM EDT ----- ------- Name: Caroline Almanza ?Age/Sex: 39/F ? : 1985 Unit#: [id number] ?? Attend Dr: VILMA NICE CNM ?Re09/24/24 ?Status: DEP REF ? Location: HO.HHCLNP ? Disch: ? ----- ------- SPEC : [id number] ? RECD: 09/26/24 ? STATUS: ??SOUT ? REQ NUM: [id number] ? SNOW: 09/24/24 ? SUBM DR: VILMA NICE CNM ? ENTERED: ??09/26/24 ?SP TYPE: Pap Smr ?OTHR : ? [...] ------- Signed (signature on file) PATY Healy (ASCP) 10/01/24 [id number] ? ----- ------- ? END OF REPORT ? us Vilma BANG LAB CYTOLOGY ORDERABLES F inal Result Performing Organization Address [facility] Co de Phone Number [facility] [address] [place] [phone] * HIV-1/2 Antigen and Antibodies, Fourth Generation, with Reflexes (06/05/2023 3:36 PM EST) [facility] HIV AB/AG Nonreactive Nonreactive [facility] Comment:HIV-1 p24 Ag and/or HIV-1/HIV-2 Ab not detected.A test result that is nonreactive does not exclude thepossibility of exposure to or infection with HIV-1 and/orHIV-2. Nonreactive results in this assay for individualswith prior exposure to HIV-1 and/or HIV-2 may be due toantigen and antibody levels that are below the limit ofdetection of this assay.The [employer] HIV Ag/Ab Combo assay result andsupplemental assay results should be interpreted inconjunction with the patient's clinical presentation,history and other laboratory results. If the results areinconsistent with clinical evidence, additional testing issuggested to confirm the result. Blood Venous blood specimen / Unknown 06/05/2023 3:36 PM EST 06/05/2023 5:26 PM EST us Jossy Lares MD LAB BLOOD ORDERABLES Final Result Performing Organization Address [facility]/ZIP Co de Phone Number [facility] [address] [place] [address] [phone] from Last 3 Months or Most Recently Relevant to Health Maintenance Insurance [facility] Care Teams Shovel Operator Relationship Specialty Start Date End Date Jossy Michele MD [address] [place] [phone] PCP - General Family Medicine 04/04/18
--- OUTSIDE RECORDS SUMMARY | 2024-12-06 09:40 | XMS_ITS | Encounter Summary ---
Author Organization [employer] Address [address] [facility] 7t [place] [address] Care Team Providers Care Spooling Supervisor Name Role Phone Jossy Michele MD Primary Care Provide r Reason for Visit * Reason Comments Med Refill Encounter Details Date Type Department Care Team ([facility] Contact Info) Description 04/05/2024 Refill [facility] [address] [place], [place] [phone] Timbo Gill MD [address] [place], [place] [phone] Psoriasis Social History Tobacco Use Types Packs/Day [...] Description 12/19/2024 1:00 PM EDT Office Visit [facility] [address] [place] [phone] Jossy Michele MD [address] [place] [phone] documented as of this encounter Visit Diagnoses Diagnosis Psoriasis Other psoriasis documented in this encounter Additional Health Concerns Assessment Noted Time PHQ-9 Depression Total Score: 0 07/20/20 23 2:58 PM EST documented as of this encounter Care Teams Spooling Supervisor Relationship Specialty Start Date End Date Jossy Michele MD [address] [place] [phone] PCP - General Family Medicine 04/04/18 documented as of this encounter
--- OUTSIDE RECORDS SUMMARY | 2024-12-06 09:40 | XMS_ITS | Encounter Summary ---
Author Organization [employer] Address [address] [facility] 7t [place] [address] Care Team Providers Care Operations Architect Name Role Phone Jossy Michele MD Primary Care Provide r Encounter Details Date Type Department Care Team (Latest Contact Info) Description 12/06/2024 Travel Social History Tobacco Use Types Packs/Day [...] Description 12/19/2024 1:00 PM EDT Office Visit [facility] [address] [place] [address] Jossy Michele MD [address] [place] [address] documented as of this encounter Visit Diagnoses Not on filedocumented in this encounter Additional Health Concerns Assessment Noted Time PHQ-9 Depression Total Score: 0 08/06/19 25 1:53 PM EST documented as of this encounter Care Teams Operations Architect Relationship Specialty Start Date End Date Jossy Michele MD [address] [place] [phone] PCP - General Family Medicine 04/04/18 documented as of this encounter
--- OUTSIDE RECORDS SUMMARY | 2024-12-06 09:40 | XMS_ITS | Encounter Summary ---
Author Organization [employer] Address [address] [facility] 7t [place] [address] Care Team Providers Care Frame Assembler Name Role Phone Jossy Michele MD Primary Care Provide r Reason for Visit * Reason Comments Med Change Request Encounter Details Date Type Department Care Team ([facility] Contact Info) Description 01/01/2023 Refill [facility] [address] [place] [address] [phone] Gab Godoy FNP Vitamin D deficiency Social [...] Encounters Date Type Department Care Team (Late Contact Info) Description 12/19/2024 1:00 PM EDT Office Visit [facility] [address] [place] [phone] Jossy Michele MD [address] [place], [place] [phone] documented as of this encounter Visit Diagnoses Diagnosis Vitamin D deficiency documented in this encounter Additional Health Concerns Assessment Noted Time PHQ-9 Depression Total Score: 13 023 7:06 PM EDT documented as of this encounter Care Teams Frame Assembler Relationship Specialty Start Date End Date Jossy Michele MD [address] [place] [address] PCP - General Family Medicine 04/04/18 documented as of this encounter
--- OUTSIDE RECORDS SUMMARY | 2024-12-06 09:40 | XMS_ITS | Clinical Summary ---
Author Organization [employer] [facility] ity Address [address] [place] [address] Care Team Providers Care Petroleum Inspector Name Role Phone Unavailable Primary Care Provider [...]
--- OUTSIDE RECORDS SUMMARY | 2024-12-06 09:40 | XMS_ITS | Encounter Summary ---
Author Organization [employer] Address [address] [facility] 7t [place] [address] Care Team Providers Care K 9 Handler/ Deputy Name Role Phone Jossy Michele MD Primary Care Provide r Encounter Details Date Type Department Care Team ([facility] st Contact Info) Description 12/06/2024 9:00 AM EDT Office Visit [facility] [address] [place], [place] [phone] Timbo Gill MD [address] [place], [place] [phone] Psoriasis vulgaris Social History Tobacco Use Types Packs/Day Years [...] 16 12/06/2024 8:58 AM EDT Oxygen Saturation - - Inhaled Oxygen Concentration - - Weight 67 kg (147 lb 12.8 oz) 12/06/2024 8:58 AM EDT Height - - Body Mass Index 27.93 10/25/2024 10:48 AM EDT documented in this encounter Progress Notes * Timbo Gill MD - 12/06/2024 9:00 AM EDT Subjective Patient ID: Caroline Almanza is a 39 y.o. female who presents for No chief complaint on file.. HPI 39 yr old woman here today for follow up on psoriasis. She was started last visit on Methotrexate and she is tolerating tx so far. Has been on it for 1 month Review of Systems Constitutional: Negative for diaphoresis, [...] Normal range of motion. Skin: Comments: Erythematous scaly plaques on back and scalp Onycholysis and oil spots on multiple fingers and toes nails Neurological: General: No focal deficit present. Mental Status: She is alert. Assessment/Plan Diagnoses and all orders for this visit: Psoriasis vulgaris Stable Still has plaques on back and scalp as well nail changes Tolerating Methotrexate for one month Continue tx for 3 months Added Diprolene oint for body plaques Continue [place]-smooth oil for scalp Cont folic acid Labs reviewed are stable RTC in 3 months - methotrexate 2.5 MG tablet; Take 4 tablets once weekly - folic acid (Folvite) 1 MG tablet; Take 1 tablet (1 mg) by mouth Once per day. - betamethasone, augmented, (Diprolene) 0.05 % ointment; Apply topically 2 times daily. - Fluocinolone Acetonide Scalp ([place]-Smoothe/FS Scalp) 0.01 % oil; Apply on scalp twice weekly at night and cover with scarf. documented in this encounter Plan of Treatment Upcoming Encounters Date Type Department Care Team (Late st Contact Info) Description 12/19/2024 1:00 PM EDT Office Visit [facility] [address] [place] [address] Jossy Michele MD [address] [place] [address] documented as of this encounter Visit Diagnoses Diagnosis Psoriasis vulgaris Other psoriasis documented in this encounter Additional Health Concerns Assessment Noted Time PHQ-9 Depression Total Score: 0 08/06/19 25 1:53 PM EST documented as of this encounter Care Teams K 9 Handler/ Deputy Relationship Specialty Start Date End Date Jossy Michele MD [address] [place] [address] PCP - General Family Medicine 04/04/18 documented as of this encounter
--- OUTSIDE RECORDS SUMMARY | 2024-12-06 09:40 | XMS_ITS ---
Author Organization [employer] Address [address] [facility] 7t [place] [address] Care Team Providers Care Fabricating Machine Operator Name Role Phone Jossy Michele MD Primary Care Provide r CHW Complex Status:Outreach In Progress (Enrolling) Start date:10/24/2024 Enrollment reason:ADT Feed Overview ED- Pt went to [facility] ED on 10/23/24. Please outreach for enrollment. Case Team Name Relationship Phone Adriana Heller(Responsible Staff) [phone] Continued Care and Services Coordination
[2024-12-09 17:03] LABS: TS Negative Control Passed; TS Panel A 0; TS Panel B 0; TS Positive Control Passed; TSpotTB Negative (Negative)
== END 2024-12-06 09:30 | disposition home or self-care (01) ==
LOC: HO.HHCL 09:29
PROVIDERS: Visit Provider Internal Medicine
DX: L40.0 Psoriasis vulgaris (principal)
CPT/HCPCS: 36415; 86481

== ENCOUNTER 2025-04-03 15:42 | Outpatient (REF) | payer MEDICAID, SELFPAY ==
[2025-04-03 17:35] LABS: MANUAL DIFF FLAG NO
[2025-04-03 17:38] LABS: Hematocrit 38.2 % (37.0-47.0); Hemoglobin 13.2 g/dl (12.0-16.0); Imm Gran Abs Auto 0.04 X10*3/uL (0.00-0.03); Imm Gran Pct Auto 0.4 % (0.0-0.4); Lymphocytes Absolute Auto 2.8 X10*3/uL (1.2-4.9); Mean Corpuscular HGB Conc 34.6 g/dl (31.0-35.0); Mean Corpuscular Hemoglobin 30.8 pg (27.0-33.0); Mean Corpuscular Volume 89.3 fL (80.0-98.0); NRBC Abs Auto 0.000 X10*3/uL (0.0-0.012); NRBC Pct Auto 0.0 /100WBC (0.0-0.2); Platelet Count 310 X10*3/uL (160-400); Red Blood Count 4.28 X10*6/uL (4.20-5.50); White Blood Count 9.3 X10*3/uL (4.8-10.8)
[2025-04-03 17:54] LABS: Alanine Aminotransferase 19 U/L (0-31); Albumin Level 4.4 g/dL (3.5-5.0); Alkaline Phosphatase 91 U/L (39-117); Aspartate Amino Transferase 24 U/L (5-31); Total Protein 6.8 g/dL (6.5-8.0)
--- OUTSIDE RECORDS SUMMARY | 2025-04-03 18:46 | XMS_ITS | Clinical Summary ---
Author Organization [employer] Address [address] [facility] 7t [place] [address] Care Team Providers Care Research Environmental Scientist Name Role Phone Jossy Michele MD Primary [...] of candidiasis. Do not swallow. 1 each 024 Active hydrOXYzine pamoate (Vistaril) 25 MG capsuleIndication [...] MOUTH EVERY DAY 90 tablet 025 Active folic acid (Folvite) 1 MG tabletIndications :Psoriasis vulgaris Take 1 tablet (1 mg) by mouth Once per day. 90 tablet 1 025 Active betamethasone, augmented, (Diprolene) 0.05 % ointmentIndicatio ns:Psoriasis vulgaris Apply topically 2 times daily. 50 g 025 Active Fluocinolone Acetonide Scalp ([place]-Smoothe/FS Scalp) 0.01 % oilIndications:Ps oriasis vulgaris Apply on scalp twice weekly at night and cover with scarf. 118.28 mL 3 025 Active SUMAtriptan (Imitrex) 25 MG tabletIndications :Acute nonintractable headache, unspecified headache type TAKE 1 TABLET BY MOUTH IF NEEDED FOR MIGRAINE REPEAT IN 2 HOURS IF NEEDED, MAX 2 TABS/DAY 9 tablet 025 Active methotrexate 2.5 MG tabletIndications :Psoriasis vulgaris Take 4 tablets once weekly 48 tablet 1 025 Active methotrexate 2.5 MG tabletIndications :Psoriasis vulgaris Take 4 tablets once weekly 48 tablet 025 2024 Discontinued(R eorder (will not trigger notification to Pharmacy)) SUMAtriptan (Imitrex) 25 MG tabletIndications :Acute nonintractable headache, unspecified headache type TAKE 1 TABLET BY MOUTH IF NEEDED FOR MIGRAINE REPEAT IN 2 HOURS IF NEEDED, MAX 2 TABS/DAY 9 tablet 025 2024 Discontinued Active Problems Problem Noted Date Diagnosed Date [...] schedule for 12/04/2023 -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 as 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 -pt will to schedule apt [...] problem I advise to mention it to director learning and development Seborrheic dermatitis 07/19/2023 07/19/2023 Thumb pain, right [...] Encounters Date Type Department Care Team Description 04/01/2025 Patient Outreach [facility] [address] [place] [phone] Jossy Michele MD Care Coordination (CM/CHW outreach) 03/21/2025 Orders Only [facility] [address] [place] [phone] Timbo Gill MD Psoriasis vulgaris 03/20/2025 Telephone [facility] [address] [place] [address] [phone] Jossy Michele MD Med Refill 03/19/2025 Refill [facility] [address] [place] [address] [phone] Jossy Michele MD Psoriasis vulgaris 03/19/2025 Refill [facility] [address] [place] [address] [phone] Jossy Michele MD Acute nonintractable headache, unspecified headache type 03/12/2025 Refill [facility] [address] [place] [address] Timbo Gill MD Psoriasis vulgaris 02/18/2025 Refill [facility] [address] [place] [address] Kailyn Barrera NP Acute nonintractable headache, unspecified headache type from Last 3 Months Immunizations Immunization Administration [...] 60 12/06/2024 8:58 AM EDT Temperature 37.1 C (98.7 F) 12/06/2024 8:58 AM EDT Respiratory Rate 16 12/06/2024 8:58 AM EDT Oxygen Saturation 100% 10/21/2024 5:24 PM EDT Inhaled Oxygen Concentration - - Weight 67 kg (147 lb 12.8 oz) 12/06/2024 8:58 AM EDT Height 154.9 cm (5' 1 ) 10/25/2024 10:48 AM EDT Body Mass Index 27.93 10/25/2024 10:48 AM EDT Plan of Treatment Health Maintenance Due Date Last Done Comments Disability Screening 1985 HPV Vaccines (1 - 3-dose series) 2000 Pneumococcal Vaccine: Pediatrics (0 to 5 Years) and At-Risk Patients (6 to 49) Years (2 of 2 - PCV) 11/29/2015 11/28/2014 COVID-19 Vaccine ( season) 2025 07/01/2021, 11/26/2020, 11/05/2020 Influenza Vaccine (#1) 2025 07/08/2015 Alcohol/Substance Use Screening 08/06/2025 08/06/2024 Depression Screening 08/06/2025 08/06/2024, 08/06/19 25 SDOH Screening 08/06/2025 08/06/2024 Family Planning (PISQ) [...] Procedure Name Priority Date/Time Associated Diagnosis Comments CBC WITH AUTO DIFFERENTIAL Routine 04/03/2025 3:45 PM EDT Psoriasis vulgaris HEPATIC FUNCTION PANEL Routine 04/03/2025 3:45 PM EDT Psoriasis vulgaris HEPATITIS PANEL, GENERAL Routine 10/25/2024 11:13 AM EDT Psoriasis vulgaris HPV DNA, LOW/HIGH RISK Routine 09/25/2024 12:00 AM EST PAP SMEAR Routine 09/24/2024 4:32 PM EST VIVI I (cervical intraepithelial neoplasia I) HIV 1/2 ANTIGEN/ANTIBODY, FOURTH GENERATION W/RFL Routine 06/05/2023 3:36 PM EST Encounter for preventive care from Last 3 Months or Most Recently Relevant to Health Maintenance Results * (ABNORMAL) CBC auto differential (04/03/2025 3:45 PM EDT) White Blood Count 9.3 4.8 - 10.8 X10*3/uL [facility] Red Blood Count 4.28 4.20 - 5.50 X10*6/uL [facility] Hemoglobin 13.2 12.0 - 16.0 g/dl [facility] Hematocrit 38.2 37.0 - 47.0 % [facility] Mean Corpuscular Volume 89.3 80.0 - 98.0 fL [facility] Mean Corpuscular Hemoglobin 30.8 27.0 - 33.0 pg [facility] Mean Corpuscular HGB Conc 34.6 31.0 - 35.0 g/dl [facility] Red Cell Distribution Width 13.5 11.0 - 16.0 % [facility] Platelet Count 310 160 - 400 X10*3/uL [facility] Mean Platelet Volume 10.7 9.4 - 12.3 fL [facility] Neutrophils Percent Auto 56.3 45 - 73 % [facility] Imm Gran Pct Auto 0.4 0.0 - 0.4 % [facility] Lymphocytes Percent Auto 29.8 20 - 40 % [facility] Monocytes Percent Auto 7.4 2 - 11 % [facility] Eosinophils Percent Auto 5.3(H) 0 - 4 % [facility] Basophils Percent Auto 0.8 0 - 2 % [facility] NRBC Pct Auto 0.0 0.0 - 0.2 /100WBC [facility] Neutrophils Absolute Auto 5.2 2.0 - 8.3 x10*3/uL [facility] Imm Gran Abs Auto 0.04(H) 0.00 - 0.03 X10*3/uL [facility] Lymphocytes Absolute Auto 2.8 1.2 - 4.9 X10*3/uL [facility] Monocytes Absolute Auto 0.7 0.1 - 1.2 X10*3/uL [facility] Eosinophils Absolute Auto 0.5(H) 0.0 - 0.4 X10*3/uL [facility] Basophils Absolute Auto 0.1 0.0 - 0.2 X10*3/uL [facility] NRBC Abs Auto 0.000 0.0 - 0.012 X10*3/uL [facility] Blood Venous blood specimen / Unknown 04/03/2025 3:45 PM EDT 04/03/2025 5:33 PM EDT us Jossy Lares MD LAB BLOOD ORDERABLES Final Result Performing Organization Address City/[facility]/ZIP Co de Phone Number [facility] [address] [place] [phone] * Hepatic Function Panel (04/03/2025 3:45 PM EDT) Bilirubin, Total 0.2 0.0 - 1.0 mg/dL [facility] Bilirubin, Direct <0.2 0.0 - 0.5 mg/dL [facility] Aspartate Amino Transferase 24 5 - 31 U/L [facility] Alanine Aminotransferase 19 0 - 31 U/L [facility] Total Protein 6.8 6.5 - 8.0 g/dL [facility] Albumin Level 4.4 3.5 - 5.0 g/dL [facility] Alkaline Phosphatase 91 39 - 117 U/L [facility] Blood Venous blood specimen / Unknown 04/03/2025 3:45 PM EDT 04/03/2025 5:33 PM EDT us Jossy Lares MD LAB BLOOD ORDERABLES Final Result [facility] [address] [place] [phone] * Hepatitis A,B,C Profile (10/25/2024 11:13 AM EDT) Hepatitis A IgM Nonreactive Nonreactive [facility] Comment:IgM antibodies to COX V not detected; does not exclude earlyacute or recovered HAV infection. ~Hepatitis B Surface Antibody NONREACTIVE Nonreactive [facility] Comment:Nonreactive: < 8.00 mIU/mL Hepatitis B Core Antibody Nonreactive Nonreactive [facility] Hepatitis C Antibody Nonreactive Nonreactive [facility] Comment:Antibodies to HCV no t detected; does not exclude early acuteHCV infection. Hepatitis B Surface Ag Negative Negative [facility] Blood Venous blood specimen / Unknown 10/25/2024 11:13 AM EDT 10/25/2024 1:26 PM EDT Timbo Gill MD LAB BLOOD ORDERABLES Final Re sult Performing Organization Address [facility] Co de Phone Number [facility] [address] [place] [address] [phone] * (ABNORMAL) HPV DNA, Low/High Risk (09/25/2024 12:00 AM EST) HPV High Risk Positive(A) Negative [facility] HPV Genotype 16 Negative Negative [facility] HPV Genotype 18 Negative Negative [facility] Comment:HPV testing performe d at [facility] (CLIA#[id number]), [address] [place] [address].Testing for HPV was performed using the Jimena [...] 09/25/2024 09/26/2024 8:5 4 AM EST us Christy Nice CNM LAB BLOOD ORDERABLES Aimee l Result [facility] [address] [place] [phone] * Pap Smear (09/24/2024 4:32 PM EST) Swab Vaginal structure / Unknown 09/24/2024 4:32 PM EST 09/26/2024 6:00 AM EST Narrative [facility] - 10/01/2024 4:42 PM EDT ----- ------- Name: Caroline Almanza Age/Sex: 39/F : 1985 Unit#: [id number] Attend Dr: CHRISTY NICE CNM Re09/24/24 Status: DEP REF Location: HO.HHCLNP Disch: ----- ------- SPEC : [id number] RECD: 09/26/24-599 STATUS: EZRA HUDSON NUM: [id number] SNOW: 09/24/24-1632 [facility] DR: CHRISTY NICE [facility] ENTERED: 09/26/2462 SP TYPE: Pap Smr OTHR : ORDERED: Pap Smear Interpretation Satisfactory for evaluation. Negative for intraepithelial lesion or malignancy. Coccobacilli consistent with shift in vaginal hanh. HPV High Risk: Positive HPV Genotyping 16: Negative HPV Genotyping 18: Negative Clinical Information LMP: Hysterectomy Previous PAP test: 2016, hx VIVI 1 Material Received Vagina ----- ------- Signed (signature on file) PATY Healy (ASCP) 10/01/24 1642 ----- ------- END OF REPORT Christy Nice [facility] CYTOLOGY ORDERABLES F inal Result [facility] [address] [place] [phone] * HIV-1/2 Antigen and Antibodies, Fourth Generation, with Reflexes (06/05/2023 3:36 PM EST) HIV AB/AG Nonreactive Nonreactive [facility] Comment:HIV-1 p24 Ag and/or HIV-1/HIV-2 Ab not detected.A test result that is nonreactive does not exclude thepossibility of exposure to or infection with HIV-1 and/orHIV-2. Nonreactive results in this assay for individualswith prior exposure to HIV-1 and/or HIV-2 may be due toantigen and antibody levels that are below the limit ofdetection of this assay.[employer] HIV Ag/Ab Combo assay result andsupplemental assay results should be interpreted inconjunction with the patient's clinical presentation,history and other laboratory results. If the results areinconsistent with clinical evidence, additional testing issuggested to confirm the result. Blood Venous blood specimen / Unknown 06/05/2023 3:36 PM EST 06/05/2023 5:26 PM EST us Jossy Lares MD LAB BLOOD ORDERABLES Final Result [facility] [address] [place] [phone] from Last 3 Months or Most Recently Relevant to Health Maintenance Insurance [facility] STANDARD Care Teams Research Environmental Scientist Relationship Specialty Start Date End Date Jossy Michele MD [address] [place] [phone] PCP - General Family Medicine 04/04/18
--- OUTSIDE RECORDS SUMMARY | 2025-04-03 18:46 | XMS_ITS | Encounter Summary ---
Author Organization [employer] Address [address] [facility] 7t [place] [address] Care Team Providers Care Core Inspector Name Role Phone Jossy Michele MD Primary Care Provide r Reason for Visit * Reason Comments Med Change Request Encounter Details Date Type Department Care Team ([facility] Contact Info) Description 01/01/2023 Refill [facility] [address] [place], [place] [phone] Gab Godoy FNP Vitamin D deficiency Social [...] documented as of this encounter Care Teams Core Inspector Relationship Specialty Start Date End Date Jossy Michele MD [address] [place], [place] [phone] PCP - General Family Medicine 04/04/18 documented as of this encounter
--- OUTSIDE RECORDS SUMMARY | 2025-04-03 18:46 | XMS_ITS | Encounter Summary ---
Author Organization [employer] Address [address] [facility] 7t [place] [address] Care Team Providers Care Floral Decorator Name Role Phone Jossy Michele MD Primary Care Provide r Reason for Visit * Reason Comments Med Refill Encounter Details Date Type Department Care Team ([facility] Contact Info) Description 03/12/2025 Refill [facility] [address] [place], [place] [phone] Timbo Gill MD [address] [place], [place] [phone] Psoriasis vulgaris Social History Tobacco Use Types [...] documented as of this encounter Care Teams Floral Decorator Relationship Specialty Start Date End Date Jossy Michele MD [address] [place] [address] PCP - General Family Medicine 04/04/18 documented as of this encounter
--- OUTSIDE RECORDS SUMMARY | 2025-04-03 18:46 | XMS_ITS | Encounter Summary ---
Author Organization [facility] Address [address] [place] [phone] Phone Care Team Providers Care Medicare Specialist Name Role Phone Jossy Michele MD Primary Care Provider Encounter Details Date Type Department Care Team ([facility] st Contact Info) Description 10/23/2024 Procedure Pass [facility], Ct Scan - [facility] [address] [place] [address] Social History Tobacco Use Types Packs/Day Years Used Date Smoking Tobacco: Former Cigarettes Q uit: 2015 Smokeless Tobacco: Never Alcohol Use Standard Drinks/Week Comments No 0 (1 standard drink = 0.6 oz pur e alcohol) Education Answer Date Recorded Are you interested in more education? Not on natalya e 11/18/2022 Are you concerned about learning? Not on file 11/18/2022 No 11/18/2022 No 11/18/2022 Digital Access Answer Date Recorded No 12/17/2022 No 12/17/2022 Reliable internet access at home? Not on file 12/17/2022 Device with a working camera? Not on file Intimate Partner Violence Answer Date R ecorded Are you denied basic needs s uch as food, clothing, or medical care? No 10/23/2024 In the past 12 months have y ou been in a relationship with a person who hurts, threatens, or tries to control you? No 10/23/2024 Are you denied basic needs s uch as food, clothing, or medical care? No 10/23/2024 In the past 12 months have y ou been in a relationship with a person who hurts, threatens, or tries to control you? No 10/23/2024 Comments No Sex and Gender Information Value Date Recorded Sex Assigned at Female 07/09/2018 12:06 PM EST Legal Sex Female 1:23 PM EDT Gender Identity Female 07/09/2018 12:06 PM EST Sexual Orientation Straight 09/06/2023 9: 58 AM EST documented as of this encounter Functional Status * Calculated C-SSRS Risk Score (Lifetime/Recent) Answer Date of Assessment Author No Risk Indicated 10/23/2024 8:45 PM EDT Amanda Navas RN * [place] Suicide Severity Rating Scale (Screener/Recent Self-Report) Question Answer Date of Assessment Author 1. Wish to be (Past 1 Month) No 10/23/2024 8:45 PM EDT Regina Olivas RN 2. Non-Specific Active Suici stefan Thoughts (Past 1 Month) No 10/23/2024 8:45 PM EDT Anum Olivas RN 6. Suicidal Behavior (Lifetime) No 8:45 PM EDT Amanda Olivas RN documented as of this encounter Plan of Treatment Not on file documented as of this encounter Visit Diagnoses Not on filedocumented in this encounter Care Teams Medicare Specialist Relationship Specialty Start Date End Date Jossy Michele MD [address] [place] [phone] PCP - General Internal Medicine 12/31/22 documented as of this encounter Additional Source Comments The information contained in this document represents components of the legal health record. It is not the complete legal health record.[facility]
--- OUTSIDE RECORDS SUMMARY | 2025-04-03 18:46 | XMS_ITS | Encounter Summary ---
Author Organization [facility] Address [address] [facility] [address] [place] [phone] Phone Care Team Providers Care Library Media Specialist Name Role Phone Tasia Paulson MD Primary Care Provider + [phone] Marvin Freeman MD Primary Care Provide r Jossy Michele MD Primary Care Provider Encounter Details Date Type Department Care Team (Late st Contact Info) Description 05/11/2018 Procedure Pass [facility] Admitting Dept Virtual Department [address] [place] [address] Social History Tobacco Use Types Packs/Day Years Used Date Smoking Tobacco: Former Smokeless Tobacco: Never Alcohol Use Standard Drinks/Week Comments No 0 (1 standard drink = 0.6 oz pur e alcohol) Comments Unknown Sex and Gender Information Value Date Recorded Sex Assigned at Female 07/09/2018 12:06 PM EST Legal Sex Female 1:23 PM EDT Gender Identity Female 07/09/2018 12:06 PM EST Sexual Orientation Straight 09/06/2023 9: 58 AM EST documented as of this encounter Plan of Treatment Not on file documented as of this encounter Visit Diagnoses Not on filedocumented in this encounter Additional Health Concerns Infection Onset Date Last Indicated Resolved Time CoV-Risk 09/06/2023 09/06/2023 09/17/2023 1:25 AM EST Influenza A 09/06/2023 09/06/2023 09/13/2023 1:24 AM EST CoV-Risk 11/09/2023 11/09/2023 11/20/2023 1:22 AM EDT documented as of this encounter Care Teams Library Media Specialist Relationship Specialty Start Date End Date Tasia Paulson MD [address] [place] [address] PCP - General Family Medicine 02/22/18 06/28/18 Marvin Freeman MD 230 [facility]. [address] [place] [phone] [email or web address] PCP - General Internal Medicine 07/02/18 12/30/22 Jossy Michele MD 230 [facility] [place] [address] PCP - General Internal Medicine 12/31/22 documented as of this encounter Additional Source Comments The information contained in this document represents components of the legal health record. It is not the complete legal health record.[facility]
--- OUTSIDE RECORDS SUMMARY | 2025-04-03 18:46 | XMS_ITS | Encounter Summary ---
Author Organization [employer] Address [address] [facility] 7t [place] [address] Care Team Providers Care Manager Life Name Role Phone Jossy Michele MD Primary Care Provide r Reason for Visit * Reason Onset Date Comments Med Refill 03/19/2025 Encounter Details Date Type Department Care Team ([facility] st Contact Info) Description 03/19/2025 Refill [facility] [address] [place], [place] [phone] Jossy Michele MD [address] [place], [place] [phone] Psoriasis vulgaris Social History Tobacco Use Types [...] encounter Miscellaneous Notes * Telephone Encounter - Michelle Le RN - 03/21/2025 12:37 PM EDT TC placed again to pt. No answer, left another message. Mychart message sent, pt. Active yesterday * Telephone Encounter - Michelle Le RN - 03/21/2025 10:11 AM EDT TC placed to pt. To advise provider would pt. To perform bloodwork prior to refill, no answer, leftVM requesting call back to Red Team RN upon receipt of message. Will reattempt in pm if no c/b * Telephone Encounter - Kalpana Hernandez LPN - 03/19/2025 10:56 AM EDT Last seen 12/06/24. * Telephone Encounter - Noe Heller - 03/19/2025 10:53 AM EDT TC from pt requesting medication refill. Medications needing refill: methotrexate 2.5 MG tablet To be sent to: [facility]/pharmacy #[id number] - [place], [place] - [address] [facility] [address] TO [place] documented in this encounter Plan of Treatment Not on file documented as of this encounter Procedures Procedure Name Priority Date/Time Associated Diagnosis Comments CBC WITH AUTO DIFFERENTIAL Routine 04/03/2025 3:45 PM EDT Psoriasis vulgaris HEPATIC FUNCTION PANEL Routine 04/03/2025 3:45 PM EDT Psoriasis vulgaris documented in this encounter Results * (ABNORMAL) CBC auto differential (04/03/2025 3:45 PM EDT) White Blood Count 9.3 4.8 - 10.8 X10*3/uL [facility] Red Blood Count 4.28 4.20 - 5.50 X10*6/uL [facility] Hemoglobin 13.2 12.0 - 16.0 g/dl [facility] Hematocrit 38.2 37.0 - 47.0 % [facility] Mean Corpuscular Volume 89.3 80.0 - 98.0 fL [facility] Mean Corpuscular Hemoglobin 30.8 27.0 - 33.0 pg [facility] Mean Corpuscular HGB Conc 34.6 31.0 - 35.0 g/dl [facility] Red Cell Distribution Width 13.5 11.0 - 16.0 % [facility] Platelet Count 310 160 - 400 X10*3/uL [facility] Mean Platelet Volume 10.7 9.4 - 12.3 fL [facility] Neutrophils Percent Auto 56.3 45 - 73 % [facility] Imm Gran Pct Auto 0.4 0.0 - 0.4 % [facility] Lymphocytes Percent Auto 29.8 20 - 40 % [facility] Monocytes Percent Auto 7.4 2 - 11 % [facility] Eosinophils Percent Auto 5.3(H) 0 - 4 % [facility] Basophils Percent Auto 0.8 0 - 2 % [facility] NRBC Pct Auto 0.0 0.0 - 0.2 /100WBC [facility] Neutrophils Absolute Auto 5.2 2.0 - 8.3 x10*3/uL [facility] Imm Gran Abs Auto 0.04(H) 0.00 - 0.03 X10*3/uL [facility] Lymphocytes Absolute Auto 2.8 1.2 - 4.9 X10*3/uL [facility] Monocytes Absolute Auto 0.7 0.1 - 1.2 X10*3/uL [facility] Eosinophils Absolute Auto 0.5(H) 0.0 - 0.4 X10*3/uL [facility] Basophils Absolute Auto 0.1 0.0 - 0.2 X10*3/uL [facility] NRBC Abs Auto 0.000 0.0 - 0.012 X10*3/uL [facility] Blood Venous blood specimen / Unknown 04/03/2025 3:45 PM EDT 04/03/2025 5:33 PM EDT us Jossy Lares MD LAB BLOOD ORDERABLES Final Result [facility] [address] [place] [phone] * Hepatic Function Panel (04/03/2025 3:45 PM EDT) Bilirubin, Total 0.2 0.0 - 1.0 mg/dL [facility] Bilirubin, Direct <0.2 0.0 - 0.5 mg/dL [facility] Aspartate Amino Transferase 24 5 - 31 U/L [facility] Alanine Aminotransferase 19 0 - 31 U/L [facility] Total Protein 6.8 6.5 - 8.0 g/dL [facility] Albumin Level 4.4 3.5 - 5.0 g/dL [facility] Alkaline Phosphatase 91 39 - 117 U/L [facility] Blood Venous blood specimen / Unknown 04/03/2025 3:45 PM EDT 04/03/2025 5:33 PM EDT Jossy Lares MD LAB BLOOD ORDERABLES Final Result [facility] [address] [place] [phone] documented in this encounter Visit Diagnoses Diagnosis Psoriasis vulgaris Other psoriasis documented in this encounter Additional Health Concerns Assessment Noted Time PHQ-9 Depression Total Score: 0 08/06/19 25 1:53 PM EST documented as of this encounter Care Teams Manager Life Relationship Specialty Start Date End Date Jossy Michele MD [address] [place] [address] PCP - General Family Medicine 04/04/18 documented as of this encounter
--- OUTSIDE RECORDS SUMMARY | 2025-04-03 18:46 | XMS_ITS | Clinical Summary ---
Author Organization [facility] Address [address] [facility] [address] [place] [address] Phone Care Team Providers Care Supervisor Publications Production Name Role Phone Jossy Michele MD Primary Care Provider Allergies Active Allergy Reactions Criticality Noted Date Comments Pollen Extracts 04/18/2023 Other reaction(s): seasonal Shellfish Containing Products Swelling 04/18/2023 Medications phenazopyridine (PYRIDIUM) 200 MG tablet Take 1 tablet (200 mg total) by mouth 3 (three) times a day as needed for pain (specific location in comments). 10 tablet 3 Active Additional Information Patient not taking.Reported on 11/08/2023 albuterol 90 mcg/actuation inhaler Inhale 2 puffs into the lungs every 4 (four) hours as needed for wheezing. 8 g 4 Active metroNIDAZOLE (METROGEL) 0.75 % (37.5mg/5 gram) vaginal gel Place vaginally every evening. 70 g 4 Active Additional Information Patient not taking.Reported on 11/08/2023 naproxen (NAPROSYN) 500 MG tablet Take 500 mg by mouth. 5 Active SUMAtriptan (IMITREX) 25 MG tablet Take 25 mg by mouth. 5 Active apremilast (OTEZLA) 30 mg tablet Take 30 mg by mouth. 4 Active Active Problems Problem Noted Date Diagnosed Date Complete tear of right ACL Social History Tobacco Use Types Packs/Day Years Used Date Smoking Tobacco: Former Cigarettes Q uit: 2014 Smokeless Tobacco: Never Alcohol Use Standard Drinks/Week [...] Orientation Straight 09/06/2023 9: 58 AM EST Last Filed Vital Signs Vital Sign Reading Time Taken Comments Blood Pressure 122/80 10/24/2024 1:37 AM EDT Pulse 72 10/24/2024 1:37 AM EDT Temperature 36.2 C (97.2 F) 10/24/2024 1:37 AM EDT Respiratory Rate 16 10/24/2024 1:37 AM EDT Oxygen Saturation 98% 10/24/2024 1:37 AM EDT Inhaled Oxygen Concentration - - Weight 63.5 kg (140 lb) 10/14/2023 9:43 PM EDT Height 154.9 cm (5' 1 ) 10/23/2024 8:43 PM EDT Body Mass Index 26.45 10/14/2023 9:43 PM EDT Plan of Treatment Health Maintenance Due Date Last Done Comments DEPRESSION SCREENING 1997 SMOKING Hx and SMOKELESS TOBACCO SCREENING 1998 HEPATITIS C SCREENING 2003 HIV ONE-TIME SCREENING (18-6 5 YEARS) 2003 PNEUMOCOCCAL VACCINES (0-49 years) (2 of 2 - PCV) 11/29/2015 11/28/2014 COVID-19 VACCINE (2 - Pfizer risk series) 11/26/2020 11/05/2020 SCREENING FOR DIABETES 07/09/2021 07/09/2018 INFLUENZA VACCINE (#1) 2025 PAP SMEAR 09/25/2027 09/24/2024 Adult Td,Tdap Booster 08/07/2034 08/07/2024 , 02/23/2012 HEPATITIS A VACCINES Aged Out No long er eligible based on patient's age to complete this topic HIB VACCINES Aged Out No longer eligi ble based on patient's age to complete this topic MENINGOCOCCAL VACCINES (ACWY) Aged Out No longer eligible based on patient's age to complete this topic MENINGOCOCCAL VACCINES (B) Aged Out N o longer eligible based on patient's age to complete this topic Medical Devices Implanted Type Area Cnc Manager Device Identifier Shelf Expiration Date Model / Serial / Lot Tissue Frozen 23mm Semitendinosis Tendon - [id number] Implanted:Qty: 1 on 07/03/2018 by Ismael Hill MD at [facility] Right: Knee [employer] 03/19/2023 FST / [id number] / [id number] Screw Bone 9x28mm Interference Biosteon - [id number] Implanted:Qty: 1 on 07/03/2018 by Ismael Hill MD at [facility] [employer] Right: Knee [employer] 02/20/2021 [id number] 66 / / [id number] Washer Screw Ligament Fixation Acl Post - [id number] Implanted:Qty: 1 on 07/03/2018 by Ismael Hill MD at [facility] Right: Knee [employer] 07/23/2099 LWPS-1 / / [id number] Procinch Tensioning Standard - [id number] Implanted:Qty: 1 on 07/03/2018 by Ismael Hill MD at [facility] Right: Knee [employer] 11/08/2018 [id number] 90 / / [id number] Insurance C3 ACO C3 ACO C3 ACO C3 ACO C3 ACO C3 ACO C3 ACO C3 ACO C3 ACO Advance Directives For more information, please contact: [phone] (9AM - 5PM [facility] * Full Code (Presumed) (Latest Code Status on File) Date Activated Date Inactivated Comments 07/03/2018 10:13 AM 07/03/2018 9:51 PM Care Teams Supervisor Publications Production Relationship Specialty Start Date End Date Jossy Michele MD [address] [place] [address] PCP - General Internal Medicine 12/31/22 Additional Source Comments The information contained in this document represents components of the legal health record. It is not the complete legal health record.[facility]
--- OUTSIDE RECORDS SUMMARY | 2025-04-03 18:46 | XMS_ITS | Encounter Summary ---
Author Organization [employer] Address [address] [facility] 7t [place] [address] Care Team Providers Care Brazer Furnace Name Role Phone Jossy Michele MD Primary Care Provide r Reason for Visit * Reason Comments Care Coordination CM/CHW outreach Encounter Details Date Type Department Care Team (Latest Contact Info) Description 04/01/2025 Patient Outreach [facility] [address] [place], [place] [phone] Jossy Michele MD [address] [place] [address] Care Coordination (CM/CHW outreach) Social History Tobacco [...] encounter Progress Notes * Adriana Heller - 04/01/2025 1:41 PM EDT CHW Adriana Heller, placed outbound call to patient in regards to help with SDOH services and to introduce Adult Complex Care Program CHW LVM introducing herself from [facility] CM Department with CHW's name, department and direct contact number requesting call back. Will re-attempt to contact within 5 days. and address not confirmed. documented in this encounter Plan of Treatment Not on file documented as of this encounter Visit Diagnoses Not on filedocumented in this encounter Additional Health Concerns Assessment Noted Time PHQ-9 Depression Total Score: 0 08/06/19 25 1:53 PM EST documented as of this encounter Care Teams Brazer Furnace Relationship Specialty Start Date End Date Jossy Michele MD [address] [place] [address] PCP - General Family Medicine 04/04/18 documented as of this encounter
--- OUTSIDE RECORDS SUMMARY | 2025-04-03 18:47 | XMS_ITS | Encounter Summary ---
Author Organization [facility] Address [address] [facility] [address] [place] [address] Phone Care Team Providers Care Product Managent Intern Name Role Phone Tasia Paulson MD Primary Care Provider + [phone] Marvin Freeman MD Primary Care Provide r Jossy Michele MD Primary Care Provider Encounter Details Date Type Department Care Team (Late st Contact Info) Description 02/22/2018 Procedure Pass [facility], [address] [address] Social History Tobacco Use Types Packs/Day Years [...] documented as of this encounter Care Teams Product Managent Intern Relationship Specialty Start Date End Date Tasia Paulson MD [address] [facility] [address] [place] [address] PCP - General Family Medicine 02/22/18 06/28/18 Marvin Freeman MD [address] [facility]. [address] [place] [phone] PCP - General Internal Medicine 07/02/18 12/30/22 Jossy Michele MD [address] [place] [address] PCP - General Internal Medicine 12/31/22 documented as of this encounter Additional Source Comments The information contained in this document represents components of the legal health record. It is not the complete legal health record.[facility]
--- OUTSIDE RECORDS SUMMARY | 2025-04-03 18:47 | XMS_ITS | Encounter Summary ---
Author Organization [facility] Address [address] [facility] [address] [place] [address] Phone Care Team Providers Care Hot Top Liner Name Role Phone Marvin Freeman MD Primary Care Provide r Jossy Michele MD Primary Care Provider Encounter Details Date Type Department Care Team ([facility] st Contact Info) Description 07/03/2018 Procedure Pass [place] Admitting Dept - Virtual Department [address] [place] [phone] Social History Tobacco Use Types Packs/Day Years [...] documented as of this encounter Care Teams Hot Top Liner Relationship Specialty Start Date End Date Marvin Freeman MD [address] [facility] [place] [phone] [email or web address] PCP - General Internal Medicine 07/02/18 12/30/22 Jossy Michele MD [address] [place] [address] PCP - General Internal Medicine 12/31/22 documented as of this encounter Additional Source Comments The information contained in this document represents components of the legal health record. It is not the complete legal health record.[facility]
--- OUTSIDE RECORDS SUMMARY | 2025-04-03 18:47 | XMS_ITS ---
Author Organization [employer] Address [address] [facility] 7t [place] [address] Care Team Providers Care Lead Portfolio Manager Name Role Phone Jossy Michele MD Primary Care Provide r CM Complex Status:Outreach In Progress (Enrolling) Start date:10/24/2024 Enrollment reason:ADT Feed Overview ED- Pt went to [facility] ED on 10/23/24. Case Team Name Relationship Phone Jake Sanchez RN(Responsible Staff) Registered Nurse [phone] Continued Care and Services Coordination
--- OUTSIDE RECORDS SUMMARY | 2025-04-03 18:47 | XMS_ITS | Encounter Summary ---
Author Organization [employer] Address [address] [facility] 7t [place] [address] Care Team Providers Care Elevator Operator Service Name Role Phone Jossy Michele MD Primary Care Provide r Reason for Visit * Reason Comments Med Refill Encounter Details Date Type Department Care Team ([facility] Contact Info) Description 12/19/[address] [facility] MEDICINE [address] [place], [place] [phone] Timbo Gill MD [address] [place], [place] [phone] Psoriasis vulgaris Social History Tobacco Use Types [...] documented as of this encounter Care Teams Elevator Operator Service Relationship Specialty Start Date End Date Jossy Michele MD [address] [place] [address] PCP - General Family Medicine 04/04/18 documented as of this encounter
--- OUTSIDE RECORDS SUMMARY | 2025-04-03 18:47 | XMS_ITS | Encounter Summary ---
Author Organization [facility] Address [address] [facility] [address] [place] [address] Phone Care Team Providers Care Clinical Lab Scientist Name Role Phone Tasia Paulson MD Primary Care Provider + [phone] Marvin Freeman MD Primary Care Provide r Jossy Michele MD Primary Care Provider Encounter Details Date Type Department Care Team (Late st Contact Info) Description 02/22/2018 Ancillary Orders Virtual Department [address] [place] [address] Delmis Joy, CRANE HOOKER [address] [place] [phone] [email or web address] knee pain, unspecified chronicity Social History Tobacco Use Types Packs/Day Years [...] on file documented as of this encounter Results * MRI KNEE WITHOUT CONTRAST (RIGHT) (03/14/2018 4:15 PM EDT) Anatomical Region Laterality Modality Knee Right Magnetic Resonan ce 03/14/2018 4:46 PM EDT Impressions 03/14/2018 4:50 PM EDT Abnormal appearance to the ACL suggesting proximal tearing, for which clinical correlation is warranted. No evidence of meniscal tear, joint effusion, or significant skeletal abnormality. POS - [id number] Narrative 03/14/2018 4:50 PM EDT TECHNIQUE: Exam performed on a 1.5 Samira high-field MRI scanner. Axial proton density with fat suppression, coronal proton density with fat suppression, sagittal T1, oblique sagittal proton density and proton density with fat suppression parallel to the plane of the ACL sequences were obtained. FINDINGS: No comparison radiographs are available. No meniscal tear is demonstrated. The PCL is slightly stretched but intact. The ACL is abnormal in appearance with a relatively horizontal course and poor delineation of the proximal insertion point, suggesting tear. The MCL and lateral collateral ligamentous complex are intact. The popliteus, infrapatellar, and visualized portions of the distal quadriceps tendons are intact. No significant joint effusion is present. No focal defect of hyaline cartilage or significant abnormality of skeletal marrow signal are demonstrated. No soft tissue mass or cyst apparent. Procedure Note Sean Ruiz MD - 03/14/2018 TECHNIQUE: Exam performed on a 1.5 Samira high-field MRI scanner. Axialproton density with fat suppression, coronal proton density with fatsuppression, sagittal T1, oblique sagittal proton density and protondensity with fat suppression parallel to the plane of the ACL sequenceswere obtained. FINDINGS: No comparison radiographs are available. No meniscal tear is demonstrated. The PCL is slightly stretched butintact. The ACL is abnormal in appearance with a relatively horizontalcourse and poor delineation of the proximal insertion point, suggestingtear. The MCL and lateral collateral ligamentous complex are intact. Thepopliteus, infrapatellar, and visualized portions of the distal quadricepstendons are intact. No significant joint effusion is present. No focaldefect of hyaline cartilage or significant abnormality of skeletal marrowsignal are demonstrated. No soft tissue mass or cyst apparent. IMPRESSION: Abnormal appearance to the ACL suggesting proximal tearing, for whichclinical correlation is warranted. No evidence of meniscal tear, jointeffusion, or significant skeletal abnormality. POS - [id number] Delmis Joy CRANE HOOKER IMG MR EXTREMITY Final Result documented in this encounter Visit Diagnoses Diagnosis Right knee pain, unspecified chronicity Right knee pain, unspecified chronicity documented in this encounter Additional Health Concerns Infection Onset Date Last Indicated Resolved Time CoV-Risk 09/06/2023 09/06/2023 09/17/2023 1:25 AM EST Influenza A 09/06/2023 09/06/2023 09/13/2023 1:24 AM EST CoV-Risk 11/09/2023 11/09/2023 11/20/2023 1:22 AM EDT documented as of this encounter Care Teams Clinical Lab Scientist Relationship Specialty Start Date End Date Tasia Paulson MD 230 [facility] 1 [place] [address] PCP - General Family Medicine 02/22/18 06/28/18 Marvin Freeman MD 230 [facility]. [address] [place] [phone] [email or web address] PCP - General Internal Medicine 07/02/18 12/30/22 Jossy Michele MD [address] [place] [address] PCP - General Internal Medicine 12/31/22 documented as of this encounter Additional Source Comments The information contained in this document represents components of the legal health record. It is not the complete legal health record.[facility]
--- OUTSIDE RECORDS SUMMARY | 2025-04-03 18:47 | XMS_ITS | Encounter Summary ---
Author Organization [facility] Address [address] [facility] [place] [phone] Phone Care Team Providers Care Rail Signal Worker Name Role Phone Tasia Paulson MD Primary Care Provider + [phone] Marvin Freeman MD Primary Care Provide r Jossy Michele MD Primary Care Provider Encounter Details Date Type Department Care Team (Latest Contact Info) Description 04/10/2018 Transcribe Orders [facility] [address] [facility] [address] [place] [address] Roz Bryant PA-C [address], Eduardo. [address] [place] [address] [email or web address] Rectal bleeding (Primary Dx); Change in bowel habits Social History Tobacco Use Types Packs/Day Years [...] documented as of this encounter Results * H. pylori antigen, stool (04/13/2018 2:57 PM EDT) Pathologist [facility] [place] [facility].PYLORI AG Negative Negative [facility] DPT OF LAB MED AND PAT+ Stool (Stool) 04/13/2018 2:5 7 PM EDT 04/14/2018 2:04 PM EDT Roz Bryant PA-C BODY FLUIDS AND STOOLS ORDERABL ES Final Result [facility] OF LAB MED AND PAT+ [address] [place] [address] * Fecal occult blood, multiple (04/13/2018 2:57 PM EDT) FECAL OCC BLD 1 DATE 92,118 [facility] Occult bld, stool, #1 Negative Negative [facility] FECAL OCC BLD 2 DATE 92,018 [facility] OCCULT BLD, STOOL, #2 Negative Negative [facility] FECAL OCC BLD 3 DATE 91,918 [facility] FECAL OCC BLD 3 RSLT Negative Negative [facility] Stool (Stool) 04/13/2018 2:5 7 PM EDT 04/13/2018 6:56 PM EDT us Roz Bryant PA-C BODY FLUIDS AND STOOLS ORDERABL ES Final Result Performing Organization Address City/[facility]/ZIP Co de Phone Number [facility] [address] [place] [address] * Giardia antigen screen (04/13/2018 2:57 PM EDT) ST GIARDIA ANTIGEN Negative Negative [facility] DPT OF LAB MED AND PAT+ Stool (Stool) 04/13/2018 2:5 7 PM EDT 04/14/2018 2:04 PM EDT Roz Bryant PA-C MICROBIOLOGY - GENERAL ORDERABL ES Final Result [facility] OF LAB MED AND PAT+ [address] [place] [address] * TSH (04/10/2018 3:45 PM EDT) TSH 1.27 0.27 - 4.20 uIU/mL [facility] Blood 04/10/2018 3:45 PM EDT 04/10/2018 3:54 PM EDT Roz Bryant PA-C LAB BLOOD ORDERABLES Final Resu lt Performing Organization Address City/[facility]/ZIP Co de Phone Number [address] [address] * C-Reactive Protein (04/10/2018 3:45 PM EDT) C REACTIVE PROTEIN <0.3 0.0 - 4.0 mg/L [facility] Blood 04/10/2018 3:45 PM EDT 04/10/2018 3:54 PM EDT Roz Bryant PA-C LAB BLOOD ORDERABLES Final Resu lt Performing Organization Address City/[facility] Co de Phone Number [address] [address] * CBC (04/10/2018 3:45 PM EDT) WBC 7.01 3.40 - 11.20 K/uL [facility] RBC 4.13 3.80 - 4.80 M/uL [facility] HGB 12.6 12.0 - 15.0 g/dL [facility] HCT 36.9 36.0 - 46.0 % [facility] PLT 320 130 - 400 K/uL [facility] MCV 89.3 79.0 - 98.0 fL [facility] MCH 30.5 27.0 - 34.8 pg [facility] MCHC 34.1 31.5 - 36.0 g/dL [facility] RDW 13.0 10.8 - 14.6 % [facility] MPV 10.7 9.4 - 12.4 fl [facility] NRBC 0.00 /100 WBCs [facility] ABSOLUTE NRBC 0.00 K/uL [facility] Blood 04/10/2018 3:45 PM EDT 04/10/2018 3:54 PM EDT Roz Bryant PA-C LAB BLOOD ORDERABLES Final Resu lt Performing Organization Address [facility]/ZIP Co de Phone Number [address] [address] * Tissue transglutaminase IgA (04/10/2018 3:45 PM EDT) TTG IGA ANTIBODY <1.2 <4.0 (Negative) U/mL [facility] DPT OF LAB MED AND PAT+ Blood 04/10/2018 3:45 PM EDT 04/10/2018 3:55 PM EDT us Roz Bryant PA-C LAB BLOOD ORDERABLES Final Resu lt Performing Organization Address City/[facility]/ZIP Co de Phone Number [facility] DPT OF LAB MED AND PAT+ [address] [place] [address] * Immunoglobulin A (04/10/2018 3:45 PM EDT) IgA 176 70 - 400 mg/dL [facility] Blood 04/10/2018 3:45 PM EDT 04/10/2018 3:54 PM EDT us Roz Bryant PA-C LAB BLOOD ORDERABLES Final Resu lt Performing Organization Address [facility] Co de Phone Number [address] [address] documented in this encounter Visit Diagnoses Diagnosis Rectal bleeding- Primary Hemorrhage of rectum and anus Change in bowel habits Other symptoms involving digestive system documented in this encounter Additional Health Concerns Infection Onset Date Last Indicated Resolved Time CoV-Risk 09/06/2023 09/06/2023 09/17/2023 1:25 AM EST Influenza A 09/06/2023 09/06/2023 09/13/2023 1:24 AM EST CoV-Risk 11/09/2023 11/09/2023 11/20/2023 1:22 AM EDT documented as of this encounter Care Teams Rail Signal Worker Relationship Specialty Start Date End Date Tasia Paulson MD [address] [address] PCP - General Family Medicine 02/22/18 06/28/18 Marvin Freeman MD [address] [facility] [address] [place] [phone] [email or web address] PCP - General Internal Medicine 07/02/18 12/30/22 Jossy Michele MD [address] [facility] [place] [address] PCP - General Internal Medicine 12/31/22 documented as of this encounter Additional Source Comments The information contained in this document represents components of the legal health record. It is not the complete legal health record.[facility]
--- OUTSIDE RECORDS SUMMARY | 2025-04-03 18:47 | XMS_ITS ---
Author Organization [employer] Address [address] [facility] [address] [place] [address] Care Team Providers Care Set Builder Name Role Phone Jossy Michele MD Primary Care Provide r [facility] Complex Status:Outreach In Progress (Enrolling) Start date:10/24/2024 Enrollment reason:ADT Feed Overview ED- Pt went to [facility] ED on 10/23/24. Please outreach for enrollment. Case Team Name Relationship Phone Adriana Heller(Responsible Staff) [phone] Continued Care and Services Coordination
--- OUTSIDE RECORDS SUMMARY | 2025-04-03 18:47 | XMS_ITS | Encounter Summary ---
Author Organization [employer] Address [address] [facility] [address] [place] [address] Care Team Providers Care Curb Machine Operator Name Role Phone Jossy Michele MD Primary Care Provide r Reason for Visit * Reason Comments Med Refill Encounter Details Date Type Department Care Team ([facility] Contact Info) Description 04/05/2024 Refill [facility] [address] [place], [place] [phone] Timbo Gill MD [address] [place], [place] [phone] Psoriasis Social History Tobacco Use Types Packs/Day [...] documented as of this encounter Care Teams Curb Machine Operator Relationship Specialty Start Date End Date Jossy Michele MD [address] [place] [phone] PCP - General Family Medicine 04/04/18 documented as of this encounter
== END 2025-04-03 15:43 | disposition home or self-care (01) ==
LOC: HO.HHCL 15:42
PROVIDERS: PCP Internal Medicine; Visit Provider Internal Medicine
DX: L40.0 Psoriasis vulgaris (principal)
CPT/HCPCS: 36415; 80076; 85025